=== PATIENT | male | born 1945 | race Caucasian/White ===

== ENCOUNTER → 2016-06-18 | Outpatient (CLI) | payer OTHER, MEDICAID | LOC: FIMAGING 16:08 | DX: M51.36 Other intervertebral disc degeneration, lumbar region (principal); G89.4 Chronic pain syndrome; M96.1 Postlaminectomy syndrome, not elsewhere classified; F11.20 Opioid dependence, uncomplicated ==

== ENCOUNTER 2017-08-03 11:38 | Inpatient (IN) | payer OTHER, MEDICAID ==
--- NOTE | 2017-08-03 11:59 | EDPHY ---
H & P Stated Complaint: WEAKNESS/NOT EATING/DOESN'T USE HIS OXYGEN/CHRONIC PAIN Time Seen by Provider: 08/03/17 11:59 HPI/ROS: CHIEF COMPLAINT: Weakness, failure to thrive, rib pain HISTORY OF PRESENT ILLNESS: The patient presents to the ED with complaints of progressive weakness, loss of appetite, failure to thrive and rib pain. The patient does have a history of COPD and uses oxygen occasionally. His only medication is oxycodone which he takes for chronic pain. The patient reports acute rib pain which developed acutely after a horseback ride several weeks ago. The patient is quite deconditioned at baseline. He reportedly was riding a horse secondary to participate in a [employer] service for friend. The patient reports significant 20-30 lb weight loss over the past several months. REVIEW OF SYSTEMS: A comprehensive 10 point review of systems is otherwise negative aside from elements mentioned in the history of present illness. Source: Patient - Personal History Current Tetanus Diphtheria and Acellular Pertussis (TDAP): Unsure - Medical/Surgical History Hx Asthma: No Hx Chronic Respiratory Disease: No Hx Diabetes: No Hx Cardiac Disease: No Hx Renal Disease: No Hx Cirrhosis: No Hx Alcoholism: No Hx HIV/AIDS: No Hx Splenectomy or Spleen Trauma: No Other PMH: CHRONIC PAIN - Social History Smoking Status: Current every day smoker - Physical Exam Exam: General Appearance: Thin, cachectic Eyes: Pupils equal and round no pallor or injection ENT, Mouth: Dry mucous membrane Respiratory: There are no retractions, lungs are clear to auscultation Cardiovascular: Tenderness to palpation anterior chest wall, no subcutaneous emphysema Gastrointestinal: Abdomen is soft and nontender, no masses, bowel sounds normal Neurological: 5 out of strength all 4 extremities Skin: Warm and dry, no rashes Musculoskeletal: Neck is supple nontender Extremities: symmetrical, full range of motion Constitutional: Initial Vital Signs Temperature (C) 36.4 C 08/03/17 11:43 Heart Rate 91 08/03/17 11:43 Respiratory Rate 18 08/03/17 11:43 Blood Pressure 69/57 L 08/03/17 11:43 O2 Sat (%) 91 L 08/03/17 11:43 O2 Delivery Mode Room Air Allergies/Adverse Reactions: No Known Allergies Allergy (Unverified 08/03/17 11:42) Home Medications: Medication Instructions Recorded Oxycodone HCl 08/03/17 Medical Decision Making - Diagnostics EKG Interpretation: EKG: Complete interpretation has been separately recorded in the [facility] archive. Summary impression: Sinus rhythm, rate 91, low voltage, LVH Imaging Results: Imaging Impressions Chest X-Ray 08/03/17 12:14 Impression: 1. New small right costophrenic angle blunting and right basilar consolidation discussed above. These could potentially be secondary to right rib fractures. 2. Possibly an abnormal right subphrenic abnormality. Results were discussed with Dr. Jaswinder Bragg at 1:15pm. Chest CT 08/03/17 13:16 Impression: 1. Small volume of acute versus subacute pulmonary embolic disease in the right lower lobe. 2. Suspect right paraspinal gas forming infection along T10 through T12 communicating with the right retroperitoneal space. No evidence of osteomyelitis or infected disk space. 3. Age indeterminate mild T5 and moderate T6 compression fractures are new since 2011. 4. No acute rib or sternal fracture. 5. Small bilateral pleural effusions. 6. Severe centrilobular emphysema, bullous formation and chronic airways disease. Findings discussed with Emergency Department physician, Aleksey Bragg on 08/03, 14:30. ED Course/Re-evaluation: The patient presents to the ED with multiple complaints primarily surrounding failure to thrive and rib pain. The patient is noted to be extremely cachectic and dehydrated. The patient was hypotensive upon arrival. The patient was brought immediately back to a room and placed on a whey department operator. He had an IV established. The patient received 2 L of normal saline for IV fluid rehydration. The patient's chest x-ray demonstrated some subtle abnormalities in the right subphrenic region. Given the patient's weight loss an abnormal chest x-ray CT scan of the chest abdomen and pelvis were obtained. Multiple abnormalities are noted including a nonspecific gas collection around the right kidney, a pulmonary embolism and a 15 mm common bile duct stone. The patient will require admission to the hospital for further evaluation and management of his multiple medical problems. Consultation is made with the hospitalist service for admission. Blood cultures and urine culture have been obtained. The patient was evaluated at 2:00 p.m. His blood pressure is currently 110/70 with a heart rate in the 70s. The patient will be admitted by Dr. Thomas. I have requested urologic consultation. I did curbside Dr. Powell who reviewed the patient's CT scan. He recommends general surgery consultation. Dr. Jiang from general surgery has been consulted. Differential Diagnosis: Differential diagnosis considered includes dehydration, renal failure, bacteremia, pyelonephritis, dehydration, metabolic abnormality, undiagnosed malignancy - Data Points Laboratory Results: Laboratory Results 08/03/17 12:04 08/03/17 12:04 08/03/17 08/03/17 08/03/17 12:04 12:04 12:04 WBC RBC Hgb Hct MCV MCH MCHC RDW Plt Count MPV Neut % (Auto) Lymph % (Auto) Rogers % (Auto) Eos % (Auto) Baso % (Auto) Nucleat RBC Rel Count Absolute Neuts (auto) Absolute Lymphs (auto) Absolute Monos (auto) Absolute Eos (auto) Absolute Basos (auto) Absolute Nucleated RBC Immature Gran % Seg Neutrophils % Band Neutrophils % Lymphocytes % Monocytes % Eosinophils % Basophils % Metamyelocytes % Myelocytes % Promyelocytes % Blast Cells % Immature Gran # Absolute Seg Neuts Absolute Band Neuts Absolute Lymphocytes Absolute Monocytes Absolute Eosinophils Absolute Basophils Absolute Metamyelocyte Absolute Myelocytes Absolute Promyelocytes Absolute Plasma Cells Absolute Blast Cells Plasma Cells % Toxic Granulation Platelet Estimate Microcytic Cells Echinocytes Smear Review By Sodium 127 mEq/L L mEq/L (135-145) Potassium 3.7 mEq/L mEq/L (3.3-5.0) Chloride 94 mEq/L L mEq/L (97-110) Carbon Dioxide 26 mEq/l mEq/l (22-31) Anion Gap 7 mEq/L L mEq/L (8-16) BUN 24 mg/dL H mg/dL (7-23) Creatinine 0.7 mg/dL mg/dL (0.7-1.3) Estimated GFR > 60 Glucose 103 mg/dL H mg/dL (70-100) Calcium 8.8 mg/dL mg/dL (8.5-10.4) Total Bilirubin 1.7 mg/dL H mg/dL (0.1-1.4) Conjugated Bilirubin 1.2 mg/dL H mg/dL (0.0-0.5) Unconjugated Bilirubin 0.5 mg/dL mg/dL (0.0-1.1) AST 28 IU/L IU/L (17-59) ALT 39 IU/L IU/L (21-72) Alkaline Phosphatase 224 IU/L H IU/L (38-126) Troponin I 0.223 ng/mL H ng/mL (0.000-0.034) NT-Pro-B Natriuret Pep 38306 pg/mL H pg/mL (0-125) Total Protein 5.7 g/dL L g/dL (6.3-8.2) Albumin 2.3 g/dL L g/dL (3.5-5.0) Lipase 39 IU/L IU/L (23-300) 08/03/17 12:04 WBC 11.24 10^3/uL H 10^3/uL (3.80-9.50) RBC 4.21 10^6/uL L 10^6/uL (4.40-6.38) Hgb 12.9 g/dL L g/dL (13.7-17.5) Hct 36.4 % L % (40.0-51.0) MCV 86.5 fL fL (81.5-99.8) MCH 30.6 pg pg (27.9-34.1) MCHC 35.4 g/dL g/dL (32.4-36.7) RDW 15.2 % % (11.5-15.2) Plt Count 98 10^3/uL L 10^3/uL (150-400) MPV 9.5 fL fL (8.7-11.7) Neut % (Auto) Not Reported Lymph % (Auto) Not Reported Rogers % (Auto) Not Reported Eos % (Auto) Not Reported Baso % (Auto) Not Reported Nucleat RBC Rel Count Not Reported Absolute Neuts (auto) Not Reported Absolute Lymphs (auto) Not Reported Absolute Monos (auto) Not Reported Absolute Eos (auto) Not Reported Absolute Basos (auto) Not Reported Absolute Nucleated RBC Not Reported Immature Gran % Not Reported Seg Neutrophils % 86.0 % % Band Neutrophils % 8.0 % % Lymphocytes % 5.0 % % Monocytes % 1.0 % % Eosinophils % 0 % % Basophils % 0 % % Metamyelocytes % 0 % % Myelocytes % 0 % % Promyelocytes % 0 % % Blast Cells % 0 % % Immature Gran # Not Reported Absolute Seg Neuts 9.67 10^/uL H 10^/uL (1.70-6.50) Absolute Band Neuts 0.90 10^3/uL H 10^3/uL (0.00-0.70) Absolute Lymphocytes 0.56 10^3/uL L 10^3/uL (1.00-3.00) Absolute Monocytes 0.11 10^3/uL L 10^3/uL (0.30-0.80) Absolute Eosinophils 0.00 10^3/uL L 10^3/uL (0.03-0.40) Absolute Basophils 0.00 10^3/uL L 10^3/uL (0.02-0.10) Absolute Metamyelocyte 0.00 10^3/mL 10^3/mL (0.00-0.00) Absolute Myelocytes 0.00 10^3/mL 10^3/mL (0.00-0.00) Absolute Promyelocytes 0.00 10^3/uL 10^3/uL (0.00-0.00) Absolute Plasma Cells 0.00 10^3/uL 10^3/uL (0.00-0.00) Absolute Blast Cells 0.00 10^3/uL 10^3/uL (0.00-0.00) Plasma Cells % 0 % % Toxic Granulation PRESENT H Platelet Estimate DECREASED L (ADEQ) Microcytic Cells 1+ H Echinocytes 2+ H Smear Review By Pending Sodium Potassium Chloride Carbon Dioxide Anion Gap BUN Creatinine Estimated GFR Glucose Calcium Total Bilirubin Conjugated Bilirubin Unconjugated Bilirubin AST ALT Alkaline Phosphatase Troponin I NT-Pro-B Natriuret Pep Total Protein Albumin Lipase Medications Given: Discontinued Medications Sodium Chloride (Ns) 500 mls @ 1,000 mls/hr IV EDNOW ONE PRN Reason: Protocol Stop: 08/03/17 12:41 Last Admin: 08/03/17 12:34 Dose: 500 mls Sodium Chloride (Ns) 1,000 mls @ 0 mls/hr IV EDNOW ONE; Wide Open PRN Reason: Protocol Stop: 08/03/17 12:14 Last Admin: 08/03/17 13:47 Dose: 1,000 mls Departure - Departure Disposition: [facility] Acute Clinical Impression: COPD (chronic obstructive pulmonary disease), Dehydration, Failure to thrive in adult Condition: Good
[2017-08-03] MEDS ORDERED: NS 500 ML IV ONE (12:12)
[2017-08-03] MEDS ORDERED: NS 1,000 ML IV ONE (12:13)
[2017-08-03 12:16] LABS: PLATELET COUNT 98 10^3/uL (150-400)
--- NOTE | 2017-08-03 12:21 | CPEKG ---
Heart Rate: 91 RR Interval: 659 P-R Interval: 192 QRSD Interval: 82 QT Interval: 400 QTC Interval: 493 P [place]: 60 QRS [place]: -86 T Wave [place]: 225 EKG Severity - ABNORMAL ECG - EKG Impression: SINUS RHYTHM EKG Impression: LEFT ANTERIOR FASCICULAR BLOCK EKG Impression: LOW VOLTAGE IN FRONTAL LEADS Electronically Signed By: Aleksey Bragg 03-Aug-2017 13:53:08
[2017-08-03] MEDS ORDERED: IOPAMIDOL (ISOVUE-300) 100 ML BTL ONE (13:22)
[2017-08-03] MEDS ORDERED: ONDANSETRON DISINTEGRATING 4 MG TAB PO PRN (14:32)
[2017-08-03] MEDS ORDERED: ACETAMINOPHEN 325 MG TAB PO PRN (14:32)
[2017-08-03] MEDS ORDERED: ONDANSETRON 4 MG/2 ML VIAL IVP PRN (14:32)
[2017-08-03] MEDS ORDERED: PIPERACILLIN/TAZO 4.5 GM/DEX 100 ML IV ONE (15:20)
[2017-08-03] MEDS ORDERED: FLUTICASONE NASAL 120 SPRAYS/16 GM MDI EACHNARE PRN (15:38)
[2017-08-03] MEDS ORDERED: FLUOCINONIDE 0.05% 15 GM CREAM TP PRN (15:38)
--- NOTE | 2017-08-03 16:42 | GHP ---
[f rep st] HISTORY AND PHYSICAL DATE OF ADMISSION: 08/03/2017 CHIEF COMPLAINT: Weight loss, rib fractures. HPI: History obtained from both patient and a friend. Patient is a 71-year- old male with history of COPD, chronic cervical and lumbar back pain presenting with failure to thrive. He has lost 20-30 pounds within the last 6 months. His friend took him to a doctor in [place] who told them to come to the emergency room. He has complained of right-sided rib pain for the past 2 weeks , after riding a riding horse in a parade. He did not fall from the horse. That evening when he got home, he had pain in both sides of his ribs. He has become very weak, especially over the last few days. He tripped when trying to go the restroom the other day. He did not have any loss of consciousness. No palpitations, presyncope, dizziness, or lightheadedness. He has not been eating the last few days. He denies fevers, chills, or sweats. No nausea, vomiting, or diarrhea. Has a chronic cough with clear sputum. No headaches. No abdominal pain. REVIEW OF SYSTEMS: I completed a 10-point review of systems, negative except as noted in HPI. PAST MEDICAL HISTORY: Cervical stenosis with bilateral arm numbness; COPD; chronic hypoxemic respiratory failure, occasionally uses oxygen; chronic lumbar stenosis and back pain due to falling down some stairs in 1993, he has been run over by a horse; hypertension; hypothyroidism. PAST SURGICAL HISTORY: Right hernia repair, laminectomy/diskectomy. FAMILY HISTORY: Father with liver cancer. Mother with stroke. SOCIAL HISTORY: Lives outside of [place]. 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 He has a daughter who lives in [place] named Linda. Has smoked on and off for the past 55 years, usually a pack a day. No alcohol or illicits. HOME MEDICATIONS: Acyclovir 4 mg 3 times daily p.r.n., Fosamax 70 mg weekly, vitamin D, finasteride 5 mg daily, Lidex cream, Flonase spray, hydroxyzine, levothyroxine 50 mcg daily, lisinopril/HCT 20/12.5 mg daily, naproxen twice daily, oxycodone 30 mg p.o. 5 times a day, tamsulosin 0.4 mg at bedtime, trazodone 100-200 mg at bedtime. ALLERGIES: No known drug allergies. PHYSICAL EXAMINATION: VITAL SIGNS: Temperature 36.4, blood pressure initially was 69/57 with a heart rate in the 90s, after fluids 118/94, heart rate 76, respirations 18, 91% on room air. GENERAL: Significantly cachectic, pale, tired-appearing. HEENT: PERRLA. Dry mucous membranes. CV: Regular rate and rhythm. No murmurs, gallops, or rubs. LUNGS: Diminished at the bases. ABDOMEN: Soft. No right upper quadrant pain with deep palpation. Positive bowel sounds. : No Dixon. MUSCULOSKELETAL: Tenderness over right upper ribs. Bones protruding significantly. SKIN: Warm and dry. NEURO: 2-12 intact. PSYCH: Alert and oriented x3. Flat affect. LABS: Sodium 127, potassium 3.7, chloride 94, anion gap 7, BUN 24, creatinine 0.7, glucose 103, calcium 8.8. Total bilirubin 1.7, conjugated 1.2, AST 28, ALT 39, alkaline phosphatase 229, total protein 5.7, albumin 2.3, lipase 39. Troponin and BNP pending. WBC 11, hemoglobin 12, hematocrit 36, platelets 98. Chest x-ray personally reviewed by me. Blunting of the right costophrenic angle. There has been an avulsion fracture deformity to the right anterior 6 through 9th ribs of unknown acuity. CT chest. Small volume of acute versus subacute pulmonary embolic disease in the right lower lobe. Suspect right paraspinal gas-forming infection along T10 through T12, communicating with the right retroperitoneal space. No evidence of osteomyelitis or infected disk space. Age-indeterminate T5 through T6 compression fractures, new since 2011. Severe central lobular emphysema bullous formation. EKG personally reviewed by me. T-wave inversions in V2 through V6. ASSESSMENT AND PLAN: 1. Hypotension. Suspect multifactorial with decreased p.o. intake and possible infection in retroperitoneal space. Blood pressures normalized with IV fluids. Normal lactate. 2. Concern for right perinephric abscess/abdominal perforation: gas tracking around right kidney/right retroperitoneal space. evaluated and plans for UGI series and then likely surgery. IV Zosyn. ID to see in the morning. 3. Right-sided chest pain: rib fractures 6-9th and PE. No resp distress. Troponin elevated, but suspect demand with acute illness. Repeat, telemetry. Check TTE tomorrow to eval for WMA. 4. Hypovolemic hyponatremia: decreased PO intake. Continue IVFs. 5. Mild leukocytosis. Again, concern for possible retroperitoneal space infection versus perforation. Has 15mm stone and CBD dilation. No RUQ pain. Afebrile. Cont Zosyn 6. Thrombocytopenia. Denies alcohol. No active bleed, monitor. 7. Hyperbilirubinemia. No reproducible right upper quadrant pain. Dr. Jiang to evaluate. 8. Protein caloric malnutrition: Severely cachectic, has lost weight over the last few months. Dietitian consult. 9. Lower extremity edema: new over the last year or so. May be due to hypoalbuminemia. Urine is pending for protein. TTE. 10. Acute/subacute pulmonary embolism: denies any shortness of breath. He is not tachycardic and stable on room air. Reviewed with Dr. Jones and says component in acute. Heparin gtt. 11. Severe weight loss: Concern malignancy. Significant tobacco history. Right kidney mass? He reports having a colonoscopy many years ago that was normal. 12. Hypothyroidism. levothyroxine when taking p.o. 13. Chronic pain: orals after surgery. Provide IV while n.p.o. 14. Indeterminate troponin: denies CP. Elevated troponin, TWIs (no old to compare). Could be related to PE, infection. Repeat troponin, telemetry, TTE 15. Diet: N.p.o. 16. DVT prophylaxis with SCDs. Patient warrants inpatient admission given concern for possible retroperitoneal infection versus perforation. Requires surgical evaluation and IV antibiotics. /[id number]/MODL MTDD
[2017-08-03] MEDS: HYDROmorphONE/DILAUDID 1 MG/ML INJ IVP PRN (16:52)
[2017-08-03] MEDS: NS 1,000 ML IV SCH (16:52)
[2017-08-03] MEDS ORDERED: HEPARIN 10,000 UNIT/10 ML MDV (1,000 UNIT/ML) IVP PRN (21:03)
[2017-08-03] MEDS ORDERED: HEPARIN/DEXTROSE 500 ML IV SCH (21:15)
[2017-08-03] MEDS: PIPERACILLIN/TAZO 3.375 GM/DEX 50 ML IV SCH (22:50)
[2017-08-03 23:01] LABS: PLATELET COUNT 102 10^3/uL (150-400)
[2017-08-03 23:25] LABS: INR 1.09 (0.83-1.16); PROTIME(PATIENT) 14.3 SEC (12.0-15.0)
[2017-08-04] MEDS: PIPERACILLIN/TAZO 3.375 GM/DEX 50 ML IV SCH ×4 (04:48→22:40)
[2017-08-04] MEDS: HYDROmorphONE/DILAUDID 1 MG/ML INJ IVP PRN ×2 (06:31→12:53)
--- NOTE | 2017-08-04 08:46 | ECHO ---
[email or web address] [address] Main: [phone] Fax: Transthoracic Echocardiogram Name: ANNA COLLIER MR#: [id number] Study Date: 08/04/2017 Study Time: 07:29 AM Date of : 1945 Age: 71 year(s) Height: 180.3 cm (71 in.) Weight: 48.99 kg (108 lb.) BSA: 1.62 m2 Gender: Male Examination: Echo Indication: EVAL FOR WMA, CHF, ELEVATED TROP, NEW PE, TWIS Image Quality: Adequate Contrast: Requested by: Linda Thomas BP: 114 mmHg/74 mmHg Heart Rate: Rhythm: Indication: EVAL FOR WMA, CHF, ELEVATED TROP, NEW PE, TWIS Procedure Staff Order Manager: Linda Lopez [facility] Reading Physician: Nivia Cole MD Requesting Provider: Conclusions: Normal size left ventricle. Mild to moderate LVH. Mildly reduced systolic LV function. EF is 42 %. Grade 1 diastolic dysfunction (abnormal relaxation). Apical hypokinesis. Normal size right ventricle. Normal RV function. Mild mitral valve regurgitation is present. Mild aortic valve regurgitation is present. Right ventricular systolic pressure measures 46mmHg. Moderate tricuspid regurgitation is present. Cannot rule out IVC thrombus. Patient has new PE. Small pericardial effusion. No echocardiographic evidence of hemodynamic compromise. There is no previous echocardiogram for comparison. Measurements: Chambers Valvular Assessment AV/MV Valvular Assessment TV/PV Normal Normal Normal Name Value Range Name Value Range Name Value Range Ao Salena (2D): 3.6 cm (1.4 cm-2.6 AV Vmax: 1.00 m/s (1 m/s-1.7 TR Vmax: 3.19 mm/s ( - ) cm) m/s) TR PGmax: 41 mmHg ( - ) IVSd (2D): 1.3 cm (0.6 cm-1.1 AV meanP mmHg ( - ) syst. PAP: 46 mmHg ( - ) cm) GUERO (VTI): 3.5 cm ( - ) PV Vmax: 0.88 m/s (0.6 m/s-0.9 LVDd (2D): 3.9 cm (4.2 cm-5.9 MV E Vmax: 0.46 m/s ( - ) m/s) cm) MV A Vmax: 0.80 m/s ( - ) PV PGmax: 3 mmHg ( - ) LVDs (2D): 2.6 cm (2.1 cm-4 MV E/A: 0.57 ( - ) cm) MV PHT: 0.072 s ( - ) Patient: ANNA COLLIER Study Date: 08/04/2017 Page 1 of 3 07:29 AM LVPWd (2D): 1.3 cm (0.6 cm-1 MVA (PHT): 3.1 s ( - ) cm) LVOTd 2.2 cm 2.2 cm mm LVEF (BP): 42 % (>=55 %) RVDd(2D): 3.4 cm (1.9 cm-3.8 cmmm) Continued Measurements: Chambers Valvular Assessment AV/MV Valvular Assessment TV/PV Name Value Name Value Name Value LADs: 2.8 cm MV DecTime: 208 m/s CVP (est.): 5 mmHg RA Area: 23.9 cm2 MV E' Septal: 0.04 m/s MV E/E' Septal: 11.30 MV E/E' Lateral: 11.90 Additional Vessels Name Value Ao Ascendin.2 cm Inferior Vena Cava: 1.3 cm Findings: Left Ventricle: Normal size left ventricle. Mild to moderate LVH. Mildly reduced systolic LV function. EF is 42 %. Regional wall motion abnormality noted. Grade 1 diastolic dysfunction (abnormal relaxation). Apical hypokinesis. Right Ventricle: Normal size right ventricle. Normal RV function. Left Atrium: The left atrium is normal in size. Right Atrium: The right atrium is normal in size. Mitral Valve: The mitral valve is normal in appearance and function. Mild mitral valve leaflet calcification is present. Mild mitral valve regurgitation is present. No mitral stenosis is present. Aortic Valve: The aortic valve is normal in appearance and function. Mild aortic valve regurgitation is present. No aortic valve stenosis is present. Tricuspid Valve: The tricuspid valve is normal in appearance and function. Right ventricular systolic pressure measures 46mmHg. Moderate tricuspid regurgitation is present. Pulmonic Valve: The pulmonic valve is normal in appearance and function. Trivial pulmonic valve regurgitation. Aorta: The aorta is normal. Normal size aortic root measuring 3.6 cm. Normal size ascending aorta measuring 3.2 cm. IVC: The IVC is normal sized. Cannot rule out IVC thrombus. Patient has new PE. Pericardium: Small pericardial effusion. No echocardiographic evidence of hemodynamic compromise. No pleural effusion. Exam Comments: Patient very thin. (No Signature Object) Patient: ANNA COLLIER Study Date: 08/04/2017 Page 2 of 3 07:29 AM Patient: ANNA COLLIER Study Date: 08/04/2017 Page 3 of 3 07:29 AM [id number]
[2017-08-04] MEDS ORDERED: POTASSIUM CL 20 MEQ TAB PO ONE (09:04)
[2017-08-04] MEDS ORDERED: PROTOCOL POTASSIUM 1 DOSE MISC PRN (09:04)
[2017-08-04] MEDS ORDERED: POTASSIUM CL 10 MEQ TAB PO ONE (09:57)
[2017-08-04] MEDS: NS 1,000 ML IV SCH (09:59)
--- NOTE | 2017-08-04 12:01 | PDMN ---
Medical Necessity Medical necessity: est los>2mn for possible retroperitoneal infection vs perforation, R chest pain w/rib fx's and PE, hypovolemic hyponatremia, and severe wt loss; admit for surgical eval, further w/u and IV abx; comorbid COPD, chronic resp failure, lumbar and cervical stenosis, and htn; per order and H&P
[2017-08-04] MEDS: POTASSIUM Cl (KCl) 100 ML IV SCH ×5 (12:19→21:23)
--- NOTE | 2017-08-04 12:29 | ASMTCASEMG ---
Living Arrangements What is your living Answers: Alone arrangement? Who do you live with? Type Of Residence What kind of residence do Answers: House you live in? Discharge Plan Comments Coordination Status Comments Notes: Pt is a 71 y/o man admitted for weight loss and rib fractures. Pt lost 20-30lbs within the last 6 months. Pt has a hx of COPD, chronic cervical and lumbar back pain and presenting w/ failure to thrive. Therapies have been ordered and awaiting recommendations. ID has been consulted. Needs are TBD at this time. CM to follow. Plan: TBD Date Signed: 08/04/2017 12:29 PM Electronically Signed By:MARIELOS Haddad
--- NOTE | 2017-08-04 15:27 | HOSPPROG ---
Hospitalist Progress Note Assessment/Plan: # Hypotension - SBP 60's at presentation - suspect multifactorial from hypovolemia and acute infection responded well to IVF resuscitation overnight - SBP 100's - cont IVF while NPO # Acute suspected perinephric abscess and possible perforation - CT abd ( personally reviewed and interpreted) paraspinal free air perinephric stranding - continue empiric Zosyn - Dr. Jiang ordered small bowl follow through - anticipate OR today at 4pm # Severe protein malnutrition - BMI 14 - pt reports 2/2 neglecting food - will need ongoing work up for malignancy or reversible cause beyond acute illnesses - dietary consult when can take PO # Acute PE - on heparin gtt overnight- oxygen saturations 100% on 2L # Acute vs Chronic systolic HF - ECHO (reviewed) reduced systolic function with elevated BNP and peripheral edema - consider gentle diuresis after pressures remain stable and post-op not needing IVF # hypothyroidism - cont synthroid # Indeterminate troponin - with reduced apical wall motion on ECHO - cardiology consulting - continue stabilization and supportive care prior to risk stratification # Hypovolemic Hyponatremia - sodium 127->133 - continue IVF # proph - heparin gtt # diet- NPO for OR # dispo- > 2MN as pt remains acutely very ill requiring stabilization and diagnostic work up I have discussed the case with Cardiology - they will consult and follow along. Subjective: exhausted Objective: Vital Signs Temp Pulse Resp BP Pulse Ox 36.4 C 74 14 109/78 95 08/04/17 12:00 08/04/17 12:00 08/04/17 12:00 08/04/17 12:00 08/04/17 12:00 Laboratory Results 08/03/17 22:55 08/04/17 05:06 08/03/17 08/04/17 08/05/17 05:59 05:59 05:59 Intake Total 2178.8 178 Output Total 175 400 Balance 2003.8 -222 PT 14.3 SEC (12.0-15.0) 08/03/17 22:55 INR 1.09 (0.83-1.16) 08/03/17 22:55 - Physical Exam Constitutional: chronically ill appearing, cachectic Eyes: anicteric sclera Ears, Nose, Mouth, Throat: dry mucous membranes Cardiovascular: regular rate and rhythym, systolic murmur, edema Respiratory: no respiratory distress, No expiratory wheeze Gastrointestinal: normoactive bowel sounds, tenderness, No guarding, No rebound Genitourinary: no bladder fullness Skin: warm Musculoskeletal: No asymmetric calves Neurologic: AAOx3 Psychiatric: depressed Lymph, Heme, Immunologic: no cervical LAD ICD10 Worksheet Patient Problems: Problems Problem Status Onset COPD (chronic obstructive pulmonary disease) Acute Dehydration Acute Failure to thrive in adult Acute
[2017-08-04] MEDS ORDERED: LR 1,000 ML IV ONE (15:49)
--- NOTE | 2017-08-04 16:02 | GCON ---
[f rep st] CONSULTATION DATE OF CONSULTATION: 08/04/2017 REASON FOR CONSULTATION: Hospitalist asked for cardiology consult related to elevated troponins, EKG with T-wave inversion, echo showing diminished ejection fraction and wall motion abnormality. HISTORY OF PRESENT ILLNESS: The patient came in to the emergency room on 2017, with complaint of weakness, no appetite, chronic back pain. On admission , he was found to be dehydrated, very thin and cachectic appearance of failure to thrive. Today while visiting with him, he is very calm; however, reports he is in significant back pain. He has noticed progressive weakness over the last few months. He does have COPD and has oxygen at home, however, does not use it compliantly. He is using oxygen at time of visit at 2 L. He has been in chronic back pain for years; however, several weeks ago, he was horseback riding , which caused him extreme acute pain, which has not subsided since that time. He has had a 20-30 pounds weight loss over the past year. He had become so weak that he decided to go to the emergency room for further evaluation. While evaluated in the emergency room, he had a chest x-ray, a CT of the chest, EKG, and echocardiogram done. CT of the chest identified a small volume acute on chronic pulmonary emboli in the right lower lobe, paraspinal gas-forming along the T10-T12, which communicated with the right retroperitoneal space. He had mild T5 to moderate T6 compression fracture, age indeterminate, and severe central lobular emphysema identified. 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 No evidence of hemodynamically compromise. Mild to moderate left ventricular hypertrophy. Regional wall motion abnormality with grade 1 diastolic dysfunction. He denies having abdominal pain; however, he admits to tenderness of the lower abdomen. At time of visit, he is in pain, however, is very calm. He is very frail and thin with notable weakness. While in the emergency room, he was seen by Dr. Jiang with suspicion of possible intraabdominal perforation. He was started on Zosyn with probable upcoming surgery to further evaluate. REVIEW OF SYSTEMS: A 10-point review of system was otherwise negative with the exception of the mentioned elements of the H and P. PAST MEDICAL HISTORY: 1. COPD with occasional use of oxygen at home. 2. Cervical stenosis. 3. Chronic back pain since 1993, after falling downstairs. 4. Hypertension. 5. Hypothyroidism. PAST SURGICAL HISTORY: 1. Hernia repair, right-sided. 2. Laminectomy with diskectomy. FAMILY HISTORY: No coronary artery disease. Father of liver cancer. Mother CVA. 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 He lives in [place]. He has 1 daughter. He has smoked for the past 50 years. No alcohol use. No illicit drug use. HOME MEDICATIONS: Acyclovir 4 mg 3 times a day as needed, Fosamax 70 mg weekly , vitamin D, finasteride 5 mg daily, Flonase spray p.r.n., levothyroxine 50 mcg daily, lisinopril/HCT 20/12.5 mg daily, naproxen twice daily, oxycodone 30 mg orally 5 times a day, tamsulosin 0.4 mg at bedtime, trazodone 100-200 mg at bedtime. Of note, he has not been taking his medications compliantly. ALLERGIES: He has no known drug allergies. PHYSICAL EXAMINATION: VITAL SIGNS: Blood pressure today 104/63, heart rate 69 , respirations 22, oxygen saturation 98% on 2 L of oxygen. GENERAL: He appears cachectic, weak, and very pale. HEENT: Pupils are equal bilaterally. Oral mucosa membranes are dry. CARDIOVASCULAR: Heart rate is regular. He has a 2/6 cardiac murmur. No gallops or rubs. LUNGS: Sounds are diminished with no wheezes, rales, or rhonchi. ABDOMEN: Soft with lower abdominal tenderness, with good bowel sounds in all quadrants MUSCULOSKELETAL: Tenderness over right rib cage. Skeletal bones prominent. SKIN: Warm and dry. PSYCH: He is alert and oriented x3. EXTREMITIES: Bilateral lower leg and feet 2+ pitting edema. INVESTIGATION: 1. Chest x-ray done 08/03/2017 showed: a. New small right costophrenic angle blunting and right basilar consolidation, possibly secondary to rib fractures. b. Possible abnormal right supraphrenic abnormality. 2. EKG: a. Left anterior fascicular block with T-wave inversion in V2 through V6. Rhythm: Sinus rhythm. 3. Abdominal CT scan. Impression: a. Gas and fluid-filled collection around right kidney tracking to the right paraspinal distribution. May represent abscess with gas- forming organisms or unusual leak from gastrointestinal tract into the retroperitoneal space. b. Large 15 mm common bile duct stone resulting in moderate intrahepatic biliary dilatation. c. Distended gallbladder containing sludge and gallstone. d. Constipation. No acute bowel process noted. 4. CT of chest with contrast 08/03/2017. Impression: a. Small volume acute on chronic pulmonary embolic disease in right lower lobe. b. Suspect paraspinal gas-forming infection along T10 through T12 communicating with the right retroperitoneal space. No evidence of osteomyelitis or infection of the disk space. c. Age indeterminate mild T5 and moderate T6 compression fractures new since 2011. d. No acute rib or sternal fractures. e. Small bilateral pleural effusions. f. Severe emphysema, and chronic airway disease. 5. Upper GI and small bowel x-ray 08/03/2017. Impression: a. No evidence of retroperitoneal perforation from stomach or addendum, possible gastritis. Limited single contrast gastrografin study, continued visualization of perinephric air around right kidney. 6. Echocardiogram 08/03/2017: a. Normal size left ventricle. b. Mild to moderate LVH. c. Mildly reduced systolic LV function with EF 42%. d. Grade 1 diastolic dysfunction, abnormal relaxation. e. Apical hypokinesis. f. Normal size right ventricle. g. Normal RV function. h. Mild mitral valve regurgitation. i. Mild aortic valve regurgitation. j. Right ventricular systolic pressure measuring 46 mmHg. k. Moderate tricuspid regurgitation. l. Cannot rule out IVC thrombus. Patient has new PE. m. Small pericardial effusion. n. No echocardiographic evidence of hemodynamics compromise. 7. Abnormal lab: Troponin 0.223, 2nd troponin 0.174, BNP 14,400, Creatinine 0.6, potassium 2.8. ASSESSMENT AND PLAN: 1. Abnormal EKG. EKG does show T-wave inversion in V2 through V6, which may be an indication of cardiac ischemia. He does remain in a regular sinus rhythm. Further cardiac evaluation will be needed during the hospitalization. 2. Elevated troponin. First troponin was 0.223, 2nd troponin 0.174. This may be an oxygen demand mismatch due to other tissue demands at this time. Further troponin levels will be obtained during this hospitalization to follow closely. 3. BNP elevated at 14,400. This is likely multifactorial. He does have lower extremity and feet 2+ pitting edema, which will be addressed with diuresis. 4. Ejection fraction decline with ejection fraction 42% by echocardiogram. We will continue to follow along closely. Likely getting a second echocardiogram after the planned noncardiac surgery. 5. Pulmonary emboli. Anticoagulation is on hold for upcoming surgery. This will need to be resumed post surgery. 6. Hypotension. This is likely due to his ongoing infection. His cardiac medications have been on hold. We will monitor this closely. 7. He is a high cardiac surgical risk. However, he also is at high risk due to the multifactorial retroperitoneal possible infection with abscess and abdominal perforation. He will need to proceed with surgery as planned and we will follow along closely post surgery and address his cardiac needs and medications at that time. /[id number]/MODL and [id number]/MODL PEDRO
[2017-08-04] MEDS ORDERED: BUPIVACAINE 0.5% 30 ML SDV ONE (16:15)
--- NOTE | 2017-08-04 16:17 | PDANEPAE ---
ANE History of Present Illness abdominal pain with intraperitoneal fluid collection ANE Past Medical History - Cardiovascular History Hx Hypertension: Yes Hx Arrhythmias: No Hx Chest Pain: No Hx Coronary Artery / Peripheral Vascular Disease: No Hx CHF / Valvular Disease: No Hx Palpitations: No - Pulmonary History Hx COPD: Yes Hx Asthma/Reactive Airway Disease: No Hx Recent Upper Respiratory Infection: No Hx Oxygen in Use at Home: Yes O2 in Use at Home (L/minute): 2 Hx Sleep Apnea: No Sleep Apnea Screening Result - Last Documented: Positive - Endocrine History Hx Diabetes: No Hypothyroid: No Hyperthyroid: No Obesity: no - Chronic Pain History Chronic Pain: Yes ANE Review of Systems Review of systems is: negative Review of Systems: - Exercise capacity Exercise capacity: <4 METS ANE Patient History - Allergies Allergies/Adverse Reactions: No Known Allergies Allergy (Unverified 08/03/17 11:42) - Home Medications Home medications: home medication list seen and reviewed Home Medications: Acyclovir [Zovirax 400 mg (*)] 400 mg PO TID PRN 08/03/17 [Last Taken Unknown] Alendronate Sodium [Fosamax 70 MG (*)] 70 mg PO Q7D 08/03/17 [Last Taken Unknown ] Cholecalciferol Vit D3 [Vitamin D3 2000 units tab (OTC)] 2,000 units PO DAILY [Last Taken Unknown] Finasteride [Proscar 5 MG (*)] 5 mg PO DAILY 08/03/17 [Last Taken Unknown] Fluocinonide 0.05% [Lidex 0.05% Cream (RX)] 1 romeo TP BID PRN 08/03/17 [Last Taken Unknown] Fluticasone Nasal [Flonase Nasal [place] (RX)] 2 sprays NASAL DAILY PRN 08/03/17 [ Last Taken Unknown] Levothyroxine [Synthroid 50 mcg (*)] 50 mcg PO DAILY06 08/03/17 [Last Taken 1 Week Ago ~07/27/17] Lisinopril/Hctz 20/12.5MG [Zestoretic/Prinzide 20/12.5MG (*)] 1 ea PO DAILY PRN 08/03/17 [Last Taken Unknown] Naproxen 500 mg PO BID PRN 08/03/17 [Last Taken Unknown] Tamsulosin HCl [Flomax 0.4 MG (*)] 0.4 mg PO HS 08/03/17 [Last Taken 08/02/17] hydrOXYzine HCL [Vistaril] 50 mg PO Q6HRS PRN 08/03/17 [Last Taken Unknown] oxyCODONE IR [Oxycodone Ir (*)] 30 mg PO 5XD 08/03/17 [Last Taken 08/03/17] traZODone [traZODONE 100MG (*)] 100 - 200 mg PO HS PRN 08/03/17 [Last Taken ] - NPO status NPO Since - Liquids (Date): 08/04/17 NPO Since - Liquids (Time): 00:00 NPO Since - Solids (Date): 08/04/17 NPO Since - Solids (Time): 00:00 - Anes Hx Anes Hx: no prior problems - Smoking Hx Smoking Status: Current every day smoker - Alcohol Use Alcohol Use: None ANE Labs/Vital Signs - Labs Result Diagrams: 08/03/17 22:55 08/04/17 05:06 - Vital Signs Blood Pressure: 112/75 Heart Rate: 71 Respiratory Rate: 14 O2 Sat (%): 95 Height: 180.34 cm Weight: 45.495 kg ANE Physical Exam - Airway Neck exam: FROM Mallampati Score: Class 1 Mouth exam: dentures - Pulmonary Pulmonary: no respiratory distress - Cardiovascular Cardiovascular: regular rate and rhythym - ASA Status ASA Status: IV ANE Anesthesia Plan Anesthesia Plan: general endotracheal anesthesia Lines/Monitors: arterial line
[2017-08-04] MEDS ORDERED: KETAMINE 200 MG/20 ML VIAL ONE (16:39)
--- NOTE | 2017-08-04 16:43 | GCON ---
[f rep st] CONSULTATION INPATIENT INFECTIOUS DISEASE CONSULTATION REFERRING PHYSICIAN: Linda Thomas MD REASON FOR REFERRAL: Possible infection in the retroperitoneal space. HISTORY OF PRESENT ILLNESS: Patient is a 71-year-old male who presented to [facility] on 08/03/2017. The patient had complained of worsening of lumbar back pain and the loss of 20-30 krystina nds within the last 6 months without trying. Patient went to his primary care physician in [place] , who directed them to the hospital. The patient states that he was riding a horse in a parade near [place] approximately 2-3 weeks ago, and after this horseback ride, he started having worsening erna n on the right side. He did not suffer any traumatic fall. The patient states that his weakness and loss of appetite have gotten less over the last couple of weeks. No clear fevers and only occasiona l chills or mild sweats. He denies any gastrointestinal symptoms. He has a chronic cough, but no ch anges recently. Denies abdominal pain. PAST MEDICAL HISTORY: 1. History of cervical stenosis. 2. COPD. 3. Hypertension. 4. Hypothyroidism. PAST SURGICAL HISTORY: 1. Status post right-sided hernia repair. 2. Status post laminectomy and diskectomy. ANTIBIOTICS: Zosyn. ALLERGIES: The patient has no known drug allergies. SOCIAL HISTORY: The patient lives outside of [place]. He has been on disability since 1993. He h as been a smoker for over 50 years. No alcohol or illicit drug use noted. FAMILY HISTORY: Reviewed but noncontributory. REVIEW OF SYSTEMS: Other than that detailed above in History of Present Illness, comprehensive 10-sy stem review is negative. PHYSICAL EXAMINATION: VITAL SIGNS: Temperature maximum is 36.8. Temperature current is 36.4. Hear t rate 74. Respiratory rate is 14. Blood pressure is 109/78. GENERAL: The patient is a well-forme d, cachectic older male in no acute distress. He is chronically ill in appearance. He is not acutel y toxic. He is alert and oriented x3. He is pleasant in demeanor. HEENT: Normocephalic for age. Atraumatic. No scleral icterus. No oral lesion or drainage from the nares. Eyes: Lids and conjunc tivae are within normal limits. Pupils are equal and round bilaterally. NECK: Supple. No meningis mus. LUNGS: Clear to auscultation bilaterally. Good effort. HEART: Regular rate and rhythm. No murmur, rub, or gallop noted. The patient does have 2+ peripheral edema midshin distal. ABDOMEN: S oft, nontender. No masses. SKIN: Warm and dry to the touch. No rash or lesion. MUSCULOSKELETAL: No muscle belly tenderness is noted. No joint line effusion or arthritis is seen. NEURO: Cranial nerves 2-12 seem to be intact. Peripheral sensation seems intact in extremities. LABORATORY DATA: Patient has a CBC dated 08/03/2017, shows a white blood cell count of 8.7, hemoglob in of 12.6, hematocrit of 36.7, and a platelet count of 102. Differential shows left shift with 89% segmented neutrophils. Serum chemistries on 08/04/2017 show sodium of 133, potassium of 2.8, chlorid e of 103, bicarbonate of 21, BUN of 18, and creatinine of 0.6. Total bilirubin is 1.3. AST is 29. ALT is 42. Alkaline phosphatase is elevated at 179. Total protein is 4.6. Albumin is 1.8. Urinaly sis is within normal limits. MICROBIOLOGIC DATA: Patient has blood cultures from 08/03/2017, which are no growth to date. The [facility] has an abdominal and chest CT from 08/03/2017. The chest CT shows small volume acute on chroni c pulmonary embolic disease in the right lower lobe. Also shows right-sided paraspinal gas formation along T10 through T12 communicating to the right retroperitoneal space. There is no evidence of dis kitis or osteomyelitis on this contrasted scan. There are old T5 and T6 compression fractures. No a cute rib or sternal fracture. Small bilateral pleural effusions. No masses. On the abdominal CT, t here is further characterization of a gas and fluid-filled collection around the right kidney trackin g to the right paraspinal space. There is a large, 15 mm common bile duct stone resulting in moderat e intrahepatic biliary dilatation. There is also a distended gallbladder. ASSESSMENT: Failure to thrive and mild leukocytosis without fever or other indications of infection apart from this retroperitoneal process on the right side. This is unusual to see this degree of gas in the soft tissues that would be attributable to infection without more outward signs of this. Oth er possibilities are that there is some pulmonary, gastrointestinal or bilious communication to the a dajuan. The presence of a large gallstone in the bile duct makes me wonder whether erosion of the bile duct could have caused a communication with retrograde movement of gas from the small bowel into the retroperitoneal space. This would result in significant pain with biliary leakage in the retroperito neum, but would not necessarily result in acute inflammatory or infectious presentation. I do agree with his empiric coverage with IV Zosyn. I do think the upcoming planned surgical investigation toda y is important in order to establish cause of this finding. I did discuss all this with his daughter in [place]. She is flying in later today. PLAN: 1. Continue empiric Zosyn. 2. Follow up on surgical findings. 3. Continue supportive care. /[id number]/MODL
[2017-08-04] MEDS ORDERED: fentaNYL 250 MCG/5 ML INJ ONE (16:58)
[2017-08-04] MEDS ORDERED: PROPOFOL 200 MG/20 ML VIAL ONE (16:58)
[2017-08-04] MEDS ORDERED: ROCURONIUM 100 MG/10 ML VIAL ONE (17:00)
[2017-08-04] MEDS ORDERED: LIDOCAINE 2% 5 ML SDV ONE (17:00)
[2017-08-04] MEDS ORDERED: DEXAMETHASONE 4 MG/ML VIAL ONE (17:03)
[2017-08-04] MEDS ORDERED: SUGAMMADEX SODIUM 200 MG/2 ML VIAL IVP ONE (17:04)
[2017-08-04] MEDS ORDERED: ONDANSETRON 4 MG/2 ML VIAL ONE (17:04)
[2017-08-04] MEDS ORDERED: PHENYLEPHRINE 10 MG/ML SDV ONE (17:57)
[2017-08-04] MEDS ORDERED: IOPAMIDOL (ISOVUE-M 300) 15 ML VIAL ONE (18:22)
[2017-08-04] MEDS ORDERED: HYDROmorphONE/DILAUDID 2 MG/ML INJ ONE (18:26)
[2017-08-04] MEDS ORDERED: ALBUMIN 5% 250 ML BOTTLE IV ONE (19:15)
[2017-08-04] MEDS ORDERED: IOTHALAMATE MEG (CONRAY) 50 ML VIAL IV ONE (19:17)
[2017-08-04] MEDS ORDERED: ALBUTEROL 3 ML DEYVIAL IH PRN (19:58)
[2017-08-04] MEDS ORDERED: oxyCODONE IR 5 MG TAB PO PRN (19:58)
[2017-08-04] MEDS ORDERED: HYDROmorphONE/DILAUDID 2 MG/ML INJ IVP PRN (19:58)
[2017-08-04] MEDS ORDERED: epHEDrine SULFATE 10 MG/ML SYR IVP PRN (19:58)
[2017-08-04] MEDS ORDERED: NALOXONE HCL 0.4 MG/ML INJ IVP PRN (19:58)
[2017-08-04] MEDS ORDERED: fentaNYL 100 MCG/2 ML INJ IVP PRN (19:58)
[2017-08-04] MEDS ORDERED: ONDANSETRON 4 MG/2 ML VIAL IVP PRN (19:58)
[2017-08-04] MEDS ORDERED: LR 500 ML IV PRN (19:58)
[2017-08-04] MEDS ORDERED: PHENYLEPHRINE HCL 100 MCG/ML SYR IVP PRN (19:58)
[2017-08-04] MEDS ORDERED: LABETALOL HCL 5 MG/ML 20 ML MDV IVP PRN (19:58)
[2017-08-04] MEDS ORDERED: ACETAMINOPHEN 500 MG TAB PO PRN (19:58)
[2017-08-04] MEDS ORDERED: HYDROCODONE/APAP 5/325 TAB PO PRN (19:58)
--- NOTE | 2017-08-04 20:00 | POSTANESTH ---
Post Anesthetic Evaluation Cardiovascular Status: Normal, Stable Respiratory Status: Normal, Stable Level of Consciousness/Mental Status: Can Participate in Eval, Mildly Sleepy, Arousable Pain Control: Adequate, Prn Tx Ordered Nausea/Vomiting Control: Adequate, Prn Tx Ordered Complications Possibly Related to Anesthesia: None Noted
--- NOTE | 2017-08-04 20:34 | POSTOPPROG ---
Post Op Note Date of Operation: 08/04/17 Surgeon: Junior Jiang Anesthesiologist: usman Anesthesia: GET(General Endotracheal) Pre-op Diagnosis: retroperitoneal abscess, cd stone Post-op Diagnosis: same Indication: pain, infection Procedure: laparotomy with drainage of retroperitoneal abscess, rajeev with grams and c Findings: large cd stone and cholelitiasis, large rt retroperitoneal abscess Inf/Abcess present in the surg proc area at time of surgery?: Yes Depth: Organ Space EBL: Minimal Complications: 0 Drains: Son Castro, Other (t-tube) Specimen(s): gallbladder, stones, cultures
[2017-08-05] MEDS: NS 1,000 ML IV SCH (00:43)
[2017-08-05] MEDS: HYDROmorphONE/DILAUDID 1 MG/ML INJ IVP PRN ×4 (00:43→16:38)
[2017-08-05] MEDS: PIPERACILLIN/TAZO 3.375 GM/DEX 50 ML IV SCH ×4 (05:01→21:55)
[2017-08-05 05:07] LABS: PLATELET COUNT 87 10^3/uL (150-400)
[2017-08-05 05:18] LABS: INR 1.33 (0.83-1.16); PROTIME(PATIENT) 16.7 SEC (12.0-15.0)
[2017-08-05] MEDS ORDERED: POTASSIUM Cl (KCl) 10 MEQ in NS 100 ML IV SCH (10:30)
[2017-08-05] MEDS ORDERED: POTASSIUM Cl (KCl) 100 ML IV SCH (10:30)
--- NOTE | 2017-08-05 10:43 | HOSPPROG ---
Hospitalist Progress Note Assessment/Plan: # Retroperitoneal abscess and possible perforation s/p ex lap with I&D of abscess removal of CBD stone - CT abd (personally reviewed and interpreted) paraspinal free air perinephric stranding - continue empiric Zosyn, ID following - cont NPO, NG tube for now - surgery following - pathology pending on gall bladder and retroperitoneal lymph node specimen # Hypotension - SBP 60's at presentation - suspect multifactorial from hypovolemia and acute infection, resolved - cont IVF while NPO, changed to D5 NS 20 KCl at 100/hr # Severe protein malnutrition - BMI 14 - pt reports 2/2 neglecting food - will need ongoing work up for malignancy or reversible cause beyond acute illnesses, as above, pathology pending - dietary consult when can take PO # Acute PE - resume heparin drip tomorrow am, per surgery # Acute vs Chronic systolic HF - ECHO (reviewed) reduced systolic function with elevated BNP and peripheral edema - consider gentle diuresis after pressures remain stable and post-op not needing IVF # hypothyroidism - cont synthroid # Indeterminate troponin - with reduced apical wall motion on ECHO - cardiology consulted, plan for inpt risk stratification once better recovered from surgery and acute infectious issues # Hypovolemic Hyponatremia - normalized with IVF's, continue # proph - heparin gtt to resume tomorrow am as above # dispo- cont inpt, ADD uncertain Subjective: Pt doing ok, pain controlled. Has NG tube. No fevers/chills. No N/ V. Objective: Vital Signs Temp Pulse Resp BP Pulse Ox 36.6 C 85 23 H 117/75 95 08/05/17 08:00 08/05/17 08:00 08/05/17 08:00 08/05/17 08:00 08/05/17 08:00 Microbiology 08/04/17 18:30 Gram Stain - Final Peritoneal Fluid - Eswab Laboratory Results 08/05/17 04:55 08/05/17 04:55 08/04/17 08/05/17 08/06/17 05:59 05:59 05:59 Intake Total 2178.8 2656 Output Total 175 965 100 Balance 2003.8 1691 -100 PT 16.7 SEC (12.0-15.0) H 08/05/17 04:55 INR 1.33 (0.83-1.16) H 08/05/17 04:55 - Physical Exam Constitutional: no apparent distress, cachectic Eyes: PERRL Ears, Nose, Mouth, Throat: moist mucous membranes Cardiovascular: regular rate and rhythym Respiratory: no respiratory distress, clear to auscultation Skin: warm Musculoskeletal: generalized weakness Neurologic: AAOx3 Psychiatric: interacting appropriately ICD10 Worksheet Patient Problems: Problems Problem Status Onset COPD (chronic obstructive pulmonary disease) Acute Dehydration Acute Failure to thrive in adult Acute
[2017-08-05] MEDS ORDERED: D5W NS W/ 20 KCl/L 1,000 ML IV SCH (11:00)
--- NOTE | 2017-08-05 11:03 | SOAPPROG ---
SOAP Progress Note Assessment/Plan: Assessment: 71 y/o M s/p laparotomy with drainage of retroperitoneal abscess, cholecystectomy with grams S: Doing well over all. Does report some pain. Denies passing flatus or BM yet. Feels cold, requesting blankets. O: Alert Afebrile No increased WOB Abdomen: appropriately tender to palpation, distended, but soft, dressings cdi, hypoactive bowel sounds NG tube in place to wall suction : Dixon in place with clear yellow urine. Plan: Await return of bowel function. Continue NPO and NG tube for now. Ok to restart heparin drip tomorrow, per Dr. Jiang. 08/05/17 10:58 Objective: Vital Signs Temp Pulse Resp BP Pulse Ox 36.6 C 85 23 H 117/75 95 08/05/17 08:00 08/05/17 08:00 08/05/17 08:00 08/05/17 08:00 08/05/17 08:00 Microbiology 08/04/17 18:30 Gram Stain - Final Peritoneal Fluid - Eswab Laboratory Results 08/05/17 04:55 08/05/17 04:55 08/04/17 08/05/17 08/06/17 05:59 05:59 05:59 Intake Total 2178.8 2656 Output Total 175 965 100 Balance 2003.8 1691 -100 PT 16.7 SEC (12.0-15.0) H 08/05/17 04:55 INR 1.33 (0.83-1.16) H 08/05/17 04:55 ICD10 Worksheet Patient Problems: Problems Problem Status Onset COPD (chronic obstructive pulmonary disease) Acute Dehydration Acute Failure to thrive in adult Acute
[2017-08-05] MEDS: D5W NS 1,000 ML IV SCH ×2 (12:42→22:21)
--- NOTE | 2017-08-05 12:43 | PCMIDPN ---
Assessment/Plan: Assessment: Right-sided retroperitoneal abscess probably from biliary source. Status post abscess drainage and gallbladder removal yesterday. Clinically seems to be doing fairly well today. Still complains of significant pain although vital signs are very stable in normal. Patient does have chronic pain issues and is managed with narcotics in significant doses as out patient. Gram-negative christopher in Gram stain from operative culture. Will wait to observe what grows. Meanwhile continue empiric Zosyn. Plan: 1. Continue empiric Zosyn. 2. Follow operative cultures. 3. Follow up with supportive care and clinical progress. New 08/05/17 12:41 Subjective: Patient is resting in his hospital bed. His 2 daughters are in the room. He has a nasogastric tube in but is awake alert and in some moderate to severe pain. No fevers or chills. Objective: Zosyn # 2 Vital Signs Temp Pulse Resp BP Pulse Ox 36.5 C 91 16 115/80 96 08/05/17 11:53 08/05/17 11:53 08/05/17 11:53 08/05/17 11:53 08/05/17 11:53 Microbiology 08/04/17 18:30 Gram Stain - Final Peritoneal Fluid - Eswab Laboratory Results 08/05/17 04:55 08/05/17 04:55 08/04/17 08/05/17 08/06/17 05:59 05:59 05:59 Intake Total 2178.8 2656 Output Total 175 965 245 Balance 2003.8 7399 -245 - Physical Exam General Appearance: WD/WN, alert, no apparent distress, cachetic, non-toxic Cardiac/Chest: regular rate, rhythm, No bradycardia, No tachycardia, No irregularly irregular Extremities: non-tender, normal inspection Abdomen: soft, No non-tender Skin: normal color, warm/dry, No rash Neuro/Psych: alert, normal mood/affect, oriented x 3 ICD10 Worksheet Patient Problems: Problems Problem Status Onset COPD (chronic obstructive pulmonary disease) Acute Dehydration Acute Failure to thrive in adult Acute
--- NOTE | 2017-08-05 14:38 | ASMTCMCOM ---
CM Note CM Note Notes: CM met w/ pts daughter, Ines for dispo planning (her number is [phone]). PT is recommending SNF. Ines would like pt to d/c to SNF. CM provided Ines w/ senior blue book. Ines will reach out to case management for list of SNFs that she would like her dad d/c to. Ines reports that he has private duty caregivers. Ines reports that Chelle Cunha (P#: [phone]) is the key person for the private duty caregiving. CM attempted to call Chelle twice but her voicemail is full. CM completed non triggering PASRR. CM to follow. Plan: TBD Date Signed: 08/05/2017 02:37 PM Electronically Signed By:MARIELOS Haddad
--- NOTE | 2017-08-05 16:44 | PDCARPN ---
Cardiology Progress Note Chief Complaint: Patient reports fatigue. Assessment/Plan: Assessment: 71-year-old male with previous history of COPD, hypertension, hypothyroidism. Admitted on 08/03/2017 for complain of weakness, no appetite, chronic back pain. and found to be dehydrated and cachectic. Abnormal EKG noted on admission with T-wave inversion in V2 through V6. CT scan showed acute/chronic PE in RLL. CT abdomen showed paraspinal free air perinephric stranding. Noted to have elevated Trop of 0.223 and BNP 43205. Echocardiogram done on 08/03/2017 showed [id number] LVH, mildly reduced LV systolic function with EF of 42%. Diastolic dysfunction was noted. Apical hypokinesis, normal RV size and function , mild MR, mild AI, RVSP of 46 mm Hg. Moderate TR. Small pericardial effusion. Repeated trop on 08/03 down to 0.174. Laparotomy with drainage of retroperitoneal abscess and rajeev by Dr Jiang on 08/04. Today: Patient is NPO. His blood pressures been stable with continuous IV fluid. Denies of any chest pain or pressure symptoms suggesting ischemia. He has maintained sinus rhythm, with no malignant pauses. Plan: 1. Elevated troponin and abnormal EKG: Troponins trended downward. Patient reports no symptoms suggesting of ischemia. The echocardiogram did show did note wall apical hypokinesis with reduced EF. Will plan on risk stratification inpatient, once patient has recovered from surgery and acute infectious process. Consider starting on aspirin therapy once cleared by surgery. 2. Elevated BNP: Potentially multifactorial by lower ejection fraction and for severe protein malnutrition. Patient has been hypotensive, and requiring IV fluids. Consideration of diuretic therapy with gentle diuresis once he has stabilized. 3. Cardiomyopathy: EF 42% by echo. Evaluate for ischemia as above, currently no beta-blockers due to hypotension., consider starting on low-dose carvedilol. 4. Pulmonary embolisms: Currently anticoagulation is on hold due to recent surgery, per hospitalist notes, heparin drip will be resumed tomorrow. 5. Retroperitoneal abscess: Patient is being followed by surgery , infectious disease. 08/05/17 16:03 Subjective: He denies of any chest pressure or pain. Reports no shortness of breath. Denies of any palpitations. Reviewed/Discussed With: other (Dr Melo) Objective: Vital Signs (8 Hrs) Temp Pulse Resp BP Pulse Ox 08/05/17 15:40 36.8 C 80 24 H 112/72 90 L 08/05/17 11:53 36.5 C 91 16 115/80 96 Intake/Output (24 Hrs) 08/04/17 08/05/17 08/06/17 05:59 05:59 05:59 Intake Total 2178.8 2656 Output Total 175 965 440 Balance 2003.8 1691 -440 Intake: Oral (ml) 0 IV Intake (ml) 1900 IV Infused (ml) 2178.8 756 Heparin/Dextrose 500 ml @ 83.8 23 Per Protocol IV CONT DUY Rx#:[id number] Ns 1,000 ml @ 100 mls/hr 545 583 IV CONT DUY Rx#: [id number] POTASSIUM Cl (KCl) 100 ml 100 @ 100 mls/hr IV Q1H DUY Rx#:[id number] Piperacillin/Tazo 3.375 50 50 gm/Dex 50 ml @ 100 mls/hr IV Q6H DUY Rx#: [id number] Output: Urine (ml) 175 700 225 Catheter 150 225 Incontinence 550 Urinal 175 Gastrointestinal Tube 50 Output (ml) Non-weighted Right Naris 50 Stomach [place] BRODY Drain Output (ml) 215 90 Right Abdomen Son 215 90 [place] T-Tube Drain Output (ml) 125 Right Abdomen T-Tube 125 Other: Weight 46.312 kg 45.495 kg 50.2 kg Intake Quantity No Sufficient Output Comment Incontinence XL incontinence stool Number of Voids Incontinence 1 Urinal 1 2 Number of Stools Incontinence 1 3 Result Diagrams: 08/05/17 04:55 08/05/17 04:55 Cardiac Labs: Cardiac Lab Results (72 Hrs) 08/03/17 22:55 Troponin I 0.174 H - Physical Exam Constitutional: no apparent distress, cachectic Ears, Nose, Mouth, Throat: dry mucous membranes Cardiovascular: regular rate and rhythm, pulses symmetric bilat, No jugular vein distention, No carotid bruit Peripheral Pulses: 1+: dorsalis-pedis (R), dorsalis-pedis (L), 2+: carotid (R), carotid (L) Respiratory: other ( diminished in bases bilateral, no rhonchi, rales, wheezing noted.) Gastrointestinal: other ( Hypoactive bowel sounds. Abdominal dressing clean dry and intact with 2 drains.) Skin: warm, No no edema ( +2 peripheral edema bilateral lower extremities to knees.) Neurologic: AAOx3 Psychiatric: cooperative, interactive ICD10 Worksheet Patient Problems: Problems Problem Status Onset COPD (chronic obstructive pulmonary disease) Acute Dehydration Acute Failure to thrive in adult Acute
--- NOTE | 2017-08-05 18:07 | HOSPPROG ---
Hospitalist Progress Note Assessment/Plan: notified by RN that current order of Dilaudid is not sufficient to control pain -increase dilaudid dosing to [id number] -notify surgery if pain is increasing Objective: Vital Signs Temp Pulse Resp BP Pulse Ox 36.8 C 80 24 H 112/72 90 L 08/05/17 15:40 08/05/17 15:40 08/05/17 15:40 08/05/17 15:40 08/05/17 15:40 Microbiology 08/04/17 18:30 Gram Stain - Final Peritoneal Fluid - Eswab Laboratory Results 08/05/17 04:55 08/05/17 04:55 08/04/17 08/05/17 08/06/17 05:59 05:59 05:59 Intake Total 2178.8 2656 1135 Output Total 175 965 530 Balance 2003.8 1691 605 PT 16.7 SEC (12.0-15.0) H 08/05/17 04:55 INR 1.33 (0.83-1.16) H 08/05/17 04:55 ICD10 Worksheet Patient Problems: Problems Problem Status Onset COPD (chronic obstructive pulmonary disease) Acute Dehydration Acute Failure to thrive in adult Acute
[2017-08-05] MEDS: HYDROmorphone HCL/NS 0.5 MG/ML SYR IVP PRN ×2 (18:16→21:55)
[2017-08-06] MEDS: HYDROmorphone HCL/NS 0.5 MG/ML SYR IVP PRN ×8 (00:56→23:14)
[2017-08-06] MEDS: PIPERACILLIN/TAZO 3.375 GM/DEX 50 ML IV SCH ×2 (03:51→09:58)
[2017-08-06 05:18] LABS: PLATELET COUNT 54 10^3/uL (150-400)
--- NOTE | 2017-08-06 09:31 | HOSPPROG ---
Hospitalist Progress Note Assessment/Plan: # Retroperitoneal abscess and possible perforation s/p ex lap with I&D of abscess removal of CBD stone - CT abd (personally reviewed and interpreted) paraspinal free air perinephric stranding. Discussed with Dr. Santos and Dr. Cook. E coli and Enterococcus on intra-operative Cx, per ID should be covered by Zosyn. BCx's ngtd. - continue empiric Zosyn, ID following - cont NPO, NG tube for now, still significant output - consider initiation of TPN tomorrow if still unable to eat - surgery following - pathology pending on gall bladder and retroperitoneal lymph node specimen # Hypotension - SBP 60's at presentation - suspect multifactorial from hypovolemia and acute infection, resolved - cont IVF while NPO, changed to D5 NS 20 KCl at 100/hr # Severe protein malnutrition - BMI 14 - pt reports 2/2 neglecting food - will need ongoing work up for malignancy or reversible cause beyond acute illnesses, as above, pathology pending - dietary consult when can take PO # Acute PE - holding heparin for plts 54K # Thrombocytopenia - >100K --> 54K. Possibly 2/2 acute illness. A little early for HIT. - monitor # Acute vs Chronic systolic HF - ECHO (reviewed) reduced systolic function with elevated BNP and peripheral edema - will likely need gentle diuresis when tolerable # hypothyroidism - cont synthroid # Indeterminate troponin - with reduced apical wall motion on ECHO - cardiology consulted, plan for inpt risk stratification once better recovered from surgery and acute infectious issues # Hypovolemic Hyponatremia - normalized with IVF's, continue # Diet - remains NPO with NG tube. May warrant TPN if still unable to eat tomorrow, which will be day 5 without oral intake. # proph - holding heparin with low platelets # dispo- cont inpt, ADD uncertain Subjective: Pt doing ok, some incisional tenderness, but denies severe pain. No N/V. +flatus, no BM. No fevers. NG tube present, NPO. Objective: Vital Signs Temp Pulse Resp BP Pulse Ox 36.4 C 79 16 122/73 H 97 08/06/17 07:21 08/06/17 07:21 08/06/17 07:21 08/06/17 07:21 08/06/17 07:21 Microbiology 05/31/18 18:30 Gram Stain - Final Peritoneal Fluid - Eswab Laboratory Results 08/06/17 04:55 08/06/17 04:55 08/05/17 08/06/17 08/07/17 05:59 05:59 05:59 Intake Total 2656 2300 Output Total 965 1625 100 Balance 1691 675 -100 PT 16.7 SEC (12.0-15.0) H 08/05/17 04:55 INR 1.33 (0.83-1.16) H 08/05/17 04:55 - Physical Exam Constitutional: chronically ill appearing, cachectic Eyes: PERRL Ears, Nose, Mouth, Throat: moist mucous membranes Cardiovascular: regular rate and rhythym Respiratory: no respiratory distress, clear to auscultation Gastrointestinal: normoactive bowel sounds, soft, non-tender abdomen, other ( dressing c/d/i, biliary drain and BRODY drain functioning) Skin: warm Musculoskeletal: full muscle strength Neurologic: AAOx3 Psychiatric: interacting appropriately ICD10 Worksheet Patient Problems: Problems Problem Status Onset COPD (chronic obstructive pulmonary disease) Acute Dehydration Acute Failure to thrive in adult Acute
--- NOTE | 2017-08-06 10:23 | PCMIDPN ---
Assessment/Plan: 1. Status post laparotomy with drainage of retroperitoneal abscess and cholecystectomy felt secondary to common bile duct stone: Continue Zosyn for now given clinical stability. Await susceptibilities on E coli and Enterococcus. Pathology pending. I am concerned about an underlying malignancy given his severe cachexia. Subjective: Patient is lying in bed, covered with a blanket. Tells me that he feels cold. Denies shaking chills. Pain is under control. Objective: Zosyn 3.375 g IV q.6 hours day 2 Afebrile Vital Signs Temp Pulse Resp BP Pulse Ox 36.4 C 79 16 122/73 H 97 08/06/17 07:21 08/06/17 07:21 08/06/17 07:21 08/06/17 07:21 08/06/17 07:21 Microbiology 08/04/17 18:30 Gram Stain - Final Peritoneal Fluid - Eswab Laboratory Results 08/06/17 04:55 08/06/17 04:55 08/05/17 08/06/17 08/07/17 05:59 05:59 05:59 Intake Total 2656 2300 Output Total 965 1625 100 Balance 1691 675 -100 Operative swabs from the abdomen show 2+ E coli and 2+ Enterococcus faecalis Blood cultures are negative so far - Physical Exam General Appearance: no apparent distress, cachetic EENT: other (No teeth, no evidence of thrush) Respiratory: lungs clear Cardiac/Chest: regular rate, rhythm Abdomen: other (Surgical dressing in place. Cholecystostomy tube in place draining bile. BRODY drain with some serosanguineous fluid) Skin: No rash ICD10 Worksheet Patient Problems: Problems Problem Status Onset COPD (chronic obstructive pulmonary disease) Acute Dehydration Acute Failure to thrive in adult Acute
--- NOTE | 2017-08-06 10:43 | SOAPPROG ---
SOAP Progress Note Assessment/Plan: Assessment: 71yo M s/p ex-lap, washout of RP abscess, CBD exploration - VSS, HDS - Cx growing enterococcus, Zosyn likely not covering. IM to discuss with ID changing abx - T tube with 125 cc out, cont to bag drainage - NGT with high outout, does have some bowel sounds. Keep NGT today - TPN tomorrow if not making progress with diet advancement Plan: 08/06/17 10:42 Subjective: feels better Objective: Vital Signs Temp Pulse Resp BP Pulse Ox 36.4 C 79 16 122/73 H 97 08/06/17 07:21 08/06/17 07:21 08/06/17 07:21 08/06/17 07:21 08/06/17 07:21 Microbiology 08/04/17 18:30 Gram Stain - Final Peritoneal Fluid - Eswab Laboratory Results 08/06/17 04:55 08/06/17 04:55 08/05/17 08/06/17 08/07/17 05:59 05:59 05:59 Intake Total 2656 2300 Output Total 965 1625 100 Balance 1691 675 -100 PT 16.7 SEC (12.0-15.0) H 08/05/17 04:55 INR 1.33 (0.83-1.16) H 08/05/17 04:55 ICD10 Worksheet Patient Problems: Problems Problem Status Onset COPD (chronic obstructive pulmonary disease) Acute Dehydration Acute Failure to thrive in adult Acute
--- NOTE | 2017-08-06 11:31 | PDCARPN ---
Cardiology Progress Note Chief Complaint: Patient reports ongoing episodes of discomfort, especially at out operative site. Assessment/Plan: Assessment: 71-year-old male with previous history of COPD, hypertension, hypothyroidism. Admitted on 08/03/2017 for complain of weakness, no appetite, chronic back pain. and found to be dehydrated and cachectic. Abnormal EKG noted on admission with T-wave inversion in V2 through V6. CT scan showed acute/chronic PE in RLL. CT abdomen showed paraspinal free air perinephric stranding. Noted to have elevated Trop of 0.223 and BNP 33436. Echocardiogram done on 08/03/2017 showed [id number] LVH, mildly reduced LV systolic function with EF of 42%. Diastolic dysfunction was noted. Apical hypokinesis, normal RV size and function , mild MR, mild AI, RVSP of 46 mm Hg. Moderate TR. Small pericardial effusion. Repeated trop on 08/03 down to 0.174. Laparotomy with drainage of retroperitoneal abscess and rajeev by Dr Jiang on 08/04. Today: Patient reports no chest pain or pressure. Reports no significant shortness of breath. Continues to be NPO. Hypoactive bowel sounds. Reports no shortness of breath. Continuous cardiac monitoring overnight shows that he is maintaining sinus rhythm with no malignant arrhythmias or pauses. Patient does report ongoing abdominal pain from incision site. WBC up today to 15.47. Retroperitoneal abscess culture results back positive for Escherichia Coli and Enterococcus Faecalis. Plan: 1. Elevated troponin and abnormal EKG: Troponins trended downward. He continues report no episodes of chest pressure or pain or symptoms suggesting of ischemia. Echo did show did note wall apical hypokinesis with reduced EF. Will plan on risk stratification inpatient, once patient has recovered from surgery and acute infectious process. Consider starting on aspirin therapy once cleared by surgery. 2. Elevated BNP: Potentially multifactorial by lower ejection fraction and for severe protein malnutrition. Patient has been hypotensive, and requiring IV fluids. Consideration of diuretic therapy with gentle diuresis once he has stabilized. 3. Cardiomyopathy: EF 42% by echo. Evaluate for ischemia as above, Consider starting on carvedilol at 3.125 mg p.o. twice daily once patient is able to take p.o.. 4. Pulmonary embolisms: Currently anticoagulation is on hold due to recent surgery, per hospitalist notes, heparin drip will be resumed when cleared by surgery. 5. Retroperitoneal abscess: Patient is being followed by surgery , infectious disease. Continue on antibiotic therapy. 08/06/17 11:26 Subjective: He reports no chest pressure or pain. Denies of any palpitations. Reports no significant shortness of breath. Reviewed/Discussed With: other (Dr Cole) Objective: Vital Signs (8 Hrs) Temp Pulse Resp BP Pulse Ox 08/06/17 07:21 36.4 C 79 16 122/73 H 97 08/06/17 04:00 36.7 C 85 16 122/73 H 99 Intake/Output (24 Hrs) 08/05/17 08/06/17 08/07/17 05:59 05:59 05:59 Intake Total 2656 2300 Output Total 965 1625 600 Balance 1691 675 -600 Intake: Oral (ml) 0 IV Intake (ml) 1900 IV Infused (ml) 756 2300 Heparin/Dextrose 500 ml @ 23 Per Protocol IV CONT DUY Rx#:[id number] Ns 1,000 ml @ 100 mls/hr 583 1945 IV CONT DUY Rx#: [id number] POTASSIUM Cl (KCl) 100 ml 100 @ 100 mls/hr IV Q1H DUY Rx#:[id number] Piperacillin/Tazo 3.375 50 355 gm/Dex 50 ml @ 100 mls/hr IV Q6H DUY Rx#: [id number] Output: Urine (ml) 700 625 500 Catheter 150 625 500 Incontinence 550 Gastrointestinal Tube 50 Output (ml) Non-weighted Right Naris 50 Stomach Door Sump NG Tube Output (ml) 600 100 Large Bore (>12 [place]) 600 100 Left Naris Stomach BRODY Drain Output (ml) 215 275 Right Abdomen Son 215 275 [place] T-Tube Drain Output (ml) 125 Right Abdomen T-Tube 125 Other: Weight 45.495 kg 49.6 kg Output Comment Incontinence XL incontinence stool Number of Voids Incontinence 1 Urinal 2 Number of Stools Catheter 1 Incontinence 3 Result Diagrams: 08/06/17 04:55 08/06/17 04:55 Cardiac Labs: Cardiac Lab Results (72 Hrs) 08/03/17 22:55 Troponin I 0.174 H - Physical Exam Constitutional: no apparent distress, cachectic Ears, Nose, Mouth, Throat: dry mucous membranes Cardiovascular: regular rate and rhythm, no murmurs, jugular vein distention (5 Cm above sternal notch 45 degree angle), pulses symmetric bilat Peripheral Pulses: 1+: dorsalis-pedis (R), dorsalis-pedis (L), 2+: carotid (R), carotid (L) Respiratory: other ( diminished in bases, no rhonchi, rales, or wheezing.) Gastrointestinal: other ( Hypoactive x4. Abdomen firm. Abdominal dressing CDI with 2 drains.) Skin: warm, No no edema ( +2 pedal edema bilateral lower extremities) Neurologic: AAOx3 Psychiatric: following commands ICD10 Worksheet Patient Problems: Problems Problem Status Onset COPD (chronic obstructive pulmonary disease) Acute Dehydration Acute Failure to thrive in adult Acute
--- NOTE | 2017-08-06 16:27 | ASMTCMCOM ---
CM Note CM Note Notes: Spoke with one of pt's daughters. They are visiting SNFs for possible admission. They asked for referrals to be sent to [facility]. Sent via [facility]. PASRR done. They may choose other SNFs as well. CM will continue to follow. Date Signed: 08/06/2017 04:26 PM Electronically Signed By:ARYAN Leigh
[2017-08-06] MEDS: VANCOMYCIN 500 MG in D5W 100 ML IV SCH (18:09)
[2017-08-06] MEDS: POTASSIUM Cl (KCl) 100 ML IV SCH ×2 (19:30→22:38)
[2017-08-07] MEDS: POTASSIUM Cl (KCl) 100 ML IV SCH ×4 (00:55→18:19)
[2017-08-07] MEDS: D5W NS 1,000 ML IV SCH (02:06)
[2017-08-07] MEDS: HYDROmorphone HCL/NS 0.5 MG/ML SYR IVP PRN ×4 (03:10→14:45)
[2017-08-07] MEDS: VANCOMYCIN 500 MG in D5W 100 ML IV SCH ×2 (03:11→17:31)
[2017-08-07 05:28] LABS: PLATELET COUNT 32 10^3/uL (150-400)
--- NOTE | 2017-08-07 08:55 | PDCARPN ---
Cardiology Progress Note Chief Complaint: abd pain Assessment/Plan: Assessment: s/p abd surgery Reduced EF PEs Plan: 08/07/17 08:53 Stable CV status today Re-start AC tx when cleared by surgery Continue to monitor H/H Subjective: c/o abd pain Reviewed/Discussed With: multidisciplinary team Time Spent with Patient: greater than 25 minutes Time Spent with Patient: Greater than 25 minutes spent on this patients care, greater than 50% of time spent counseling, educating, and coordinating care regarding the above mentioned plan. Objective: Vital Signs (8 Hrs) Temp Pulse Resp BP Pulse Ox 08/07/17 07:45 36.9 C 94 20 129/83 H 93 08/07/17 03:25 36.9 C 91 17 119/75 95 Intake/Output (24 Hrs) 08/06/17 08/07/17 08/08/17 05:59 05:59 05:59 Intake Total 2300 2365 Output Total 1690 1565 Balance 610 800 Intake: IV Intake (ml) 1130 IV Infused (ml) 2300 1235 D5w Ns 1,000 ml @ 100 mls 635 /hr IV CONT DUY Rx#: [id number] Ns 1,000 ml @ 100 mls/hr 1945 IV CONT DUY Rx#: [id number] POTASSIUM Cl (KCl) 100 ml 300 @ 100 mls/hr IV Q1H DUY Rx#:[id number] Piperacillin/Tazo 3.375 355 gm/Dex 50 ml @ 100 mls/hr IV Q6H DUY Rx#: [id number] Vancomycin 500 mg In D5w 100 100 ml @ 100 mls/hr IV Q12H DUY Rx#:[id number] metroNIDAZOLE 500 MG/NACL 200 100 ml @ 100 mls/hr IV Q8 DUY Rx#:[id number] Output: Urine (ml) 625 1150 Catheter 625 1150 NG Tube Output (ml) 600 300 Large Bore (>12 [place]ian) 600 300 Left Naris Stomach BRODY Drain Output (ml) 315 90 Right Abdomen Son 315 90 [place] T-Tube Drain Output (ml) 150 25 Right Abdomen T-Tube 150 25 Other: Weight 49.6 kg 47.315 kg Number of Voids Catheter 1 Number of Stools Catheter 1 Result Diagrams: 08/07/17 04:45 08/07/17 04:45 - Physical Exam Constitutional: cachectic Eyes: PERRL Ears, Nose, Mouth, Throat: moist mucous membranes Cardiovascular: regular rate and rhythm Peripheral Pulses: 1+: femoral (R), femoral (L) Respiratory: no crackles Gastrointestinal: normoactive bowel sounds Skin: no rashes Musculoskeletal: no muscular tenderness Psychiatric: cooperative ICD10 Worksheet Patient Problems: Problems Problem Status Onset COPD (chronic obstructive pulmonary disease) Acute Dehydration Acute Failure to thrive in adult Acute
--- NOTE | 2017-08-07 11:11 | HOSPPROG ---
Hospitalist Progress Note Assessment/Plan: # Retroperitoneal abscess and possible perforation s/p ex lap with I&D of abscess removal of CBD stone - POD #3. CT abd showed paraspinal free air and perinephric stranding. Discussed with Dr. Santos and Dr. Cook. E coli and Enterococcus on intra-operative Cx. BCx's ngtd. Pt pulled out NG tube overnight. - changed to Vanc/Ceftriaxone/Flagyl per ID - trial clears per surg - pathology pending on gall bladder and retroperitoneal lymph node specimen # Severe protein malnutrition - BMI 14 - pt reports 2/2 neglecting food. Also consider pulmonary cachexia - will need ongoing work up for malignancy or reversible cause beyond acute illnesses. As above, pathology pending - dietary consult once taking better po # Acute / ?chronic PE - holding heparin for plts 32K. Also raises concern for malignancy. Reviewed CT with pulm who notes with small volume, likely doesn't warrant anticoagulation. -check LE u/s to evaluate for risk of increased clot burden - neg for DVT # Acute vs Chronic hypoxemic respiratory failure 2/2 possibly chronic HF and COPD - ECHO (reviewed) reduced systolic function with elevated BNP and peripheral edema. Personally reviewed chest CT, note appearance of bullous emphysema. - will likely need gentle diuresis when tolerable - add duonebs, likely d/c home with spiriva, albuterol +/- inhaled steroid # Thrombocytopenia - >100K --> 32K. Possibly 2/2 acute illness. Timing could be c/w HIT - send HIT Ab - hold ASA, anticoagulation - cont to monitor # Hypotension - SBP 60's at presentation - suspect multifactorial from hypovolemia and acute infection, resolved - cont IVF until taking better po # hypothyroidism - cont synthroid # Indeterminate troponin - with reduced apical wall motion on ECHO - cardiology following, plan for inpt risk stratification once better recovered from surgery and acute infectious issues # Hypovolemic Hyponatremia - normalized with IVF's, continue # Diet - trial clears today. # proph - holding heparin with low platelets, cont SCD's # dispo- cont inpt, ADD uncertain Subjective: Pt feels ok, c/o abdominal discomfort. Pulled out NG tube overnight. No N/V. No fevers. No CP or SOB. Taking some clears today, tolerating. Good uop. Still with LE edema Objective: Vital Signs Temp Pulse Resp BP Pulse Ox 36.9 C 94 20 129/83 H 93 08/07/17 07:45 08/07/17 07:45 08/07/17 07:45 08/07/17 07:45 08/07/17 07:45 Microbiology 08/04/17 18:30 Gram Stain - Final Peritoneal Fluid - Eswab Laboratory Results 08/07/17 04:45 08/07/17 04:45 08/06/17 08/07/17 08/08/17 05:59 05:59 05:59 Intake Total 2300 2365 Output Total 1690 1565 Balance 610 800 PT 16.7 SEC (12.0-15.0) H 08/05/17 04:55 INR 1.33 (0.83-1.16) H 08/05/17 04:55 - Physical Exam Constitutional: chronically ill appearing, cachectic Eyes: PERRL Ears, Nose, Mouth, Throat: moist mucous membranes Cardiovascular: regular rate and rhythym Respiratory: no respiratory distress, reduced air movement Gastrointestinal: normoactive bowel sounds, other (soft, mild distention, mild TTP, no r/r/g) Skin: warm Musculoskeletal: full muscle strength Neurologic: AAOx3 Psychiatric: interacting appropriately ICD10 Worksheet Patient Problems: Problems Problem Status Onset COPD (chronic obstructive pulmonary disease) Acute Dehydration Acute Failure to thrive in adult Acute
--- NOTE | 2017-08-07 11:21 | PCMIDPN ---
Assessment/Plan: 1. Status post laparotomy with drainage of retroperitoneal abscess and cholecystectomy felt secondary to common bile duct stone: Patient's daughter strongly feels that he is more confused, and she is worried it could be related to the change in antibiotic. Will change levofloxacin to ceftriaxone, and continue vancomycin and metronidazole. Enterococcal susceptibilities are pending. Hopefully can change metronidazole to oral tomorrow, as his p.o. intake picks up. Obtain vancomycin trough tomorrow morning. 2. Thrombocytopenia: This proceeded vancomycin, and seems a bit early to be caused by Zosyn. Check HI T antibody. Over 25 mins spent with pt today. Subjective: Patient's daughter is worried that he is more confused after the change in antibiotic. Is also asking for nicotine patch. Wants to make sure he is not going home any time soon, she is very worried about him. Objective: Vancomycin 500 mg IV q.12 hours day 2 Metronidazole 500 mg IV q.8 hours day 2 Levofloxacin 750 mg IV daily day 2 (not dosed today yet) overall antibiotics day 3 Afebrile Vital Signs Temp Pulse Resp BP Pulse Ox 36.9 C 94 20 129/83 H 93 08/07/17 07:45 08/07/17 07:45 08/07/17 07:45 08/07/17 07:45 08/07/17 07:45 Microbiology 08/04/17 18:30 Gram Stain - Final Peritoneal Fluid - Eswab Laboratory Results 08/07/17 04:45 08/07/17 04:45 08/06/17 08/07/17 08/08/17 05:59 05:59 05:59 Intake Total 2300 2365 Output Total 1690 1565 Balance 610 800 Peritoneal fluid with 2+ E coli, susceptible to levofloxacin and ceftriaxone, resistant to Unasyn and intermediate to Zosyn 2+ Enterococcus faecalis, susceptibilities are pending Blood cultures remain negative Fungal cultures pending - Physical Exam General Appearance: no apparent distress, cachetic EENT: pharynx normal, No thrush Respiratory: lungs clear Cardiac/Chest: regular rate, rhythm Abdomen: distended, other (Cholecystostomy tube with green bile, BRODY bulb empty, hypoactive bowel sounds. Incision looks okay) Skin: No rash Neuro/Psych: other (He is alert and oriented for me today.) ICD10 Worksheet Patient Problems: Problems Problem Status Onset COPD (chronic obstructive pulmonary disease) Acute Dehydration Acute Failure to thrive in adult Acute
--- NOTE | 2017-08-07 11:22 | ASMTCMCOM ---
CM Note CM Note Notes: Spoke with patient's daughter. Added [facility] to list of SNF referrals and encouraged her to visit facilities. Discharge date TBD, Case Management will follow. Date Signed: 08/07/2017 11:21 AM Electronically Signed By:Merna Chowdhury RN
[2017-08-07] MEDS: NICOTINE 21 MG/24 HR PATCH TD SCH (12:13)
[2017-08-07] MEDS ORDERED: ALTEPLASE 2 MG VIAL IVP PRN (13:03)
[2017-08-07] MEDS ORDERED: LIDOCAINE 1% 300 MG/30 ML SDV ONE (13:49)
--- NOTE | 2017-08-07 14:18 | PDRADPN ---
Radiology Procedure Note Date of Procedure: 08/07/17 Radiologist: Juan Motley Anesthesia: Local (Specify) Pre-op Diagnosis: poor iv access Post-op Diagnosis: same Indication: meds iv Procedure: RUE pic Finding(s): non visualized basilic, patent brachial. 41cm picc terminates at cavoatrial junction. ok to use. Inf/Abcess present in the surg proc area at time of surgery?: No EBL: Minimal Complications: none
--- NOTE | 2017-08-07 14:33 | SOAPPROG ---
SOAP Progress Note Assessment/Plan: Assessment: 71yo M s/p ex-lap, washout of RP abscess, CBD exploration - VSS, HDS - Cx growing enterococcus, antibiotics tailored per Infectious Disease. White count has improved today, patient has been afebrile. - T tube with 25 cc out over last 24 hr, continue bag drainage. Anticipate that this will increase as patient begins diet. - nasogastric tube self remove yesterday, did well overnight denies nausea this morning. Okay to advance to clear liquids. - PICC line placed today, with still hold off on TPN as he is tolerating clear liquids Plan: 08/06/17 10:42 08/07/17 14:31 08/07/17 14:32 Subjective: Doing well today, pain is controlled. Objective: Vital Signs Temp Pulse Resp BP Pulse Ox 36.9 C 93 20 129/83 H 92 08/07/17 07:45 08/07/17 12:00 08/07/17 12:00 08/07/17 07:45 08/07/17 12:00 Microbiology 08/04/17 18:30 Gram Stain - Final Peritoneal Fluid - Eswab Laboratory Results 08/07/17 04:45 08/07/17 04:45 08/06/17 08/07/17 08/08/17 05:59 05:59 05:59 Intake Total 2300 2365 Output Total 1690 1565 Balance 610 800 PT 16.7 SEC (12.0-15.0) H 08/05/17 04:55 INR 1.33 (0.83-1.16) H 08/05/17 04:55 ICD10 Worksheet Patient Problems: Problems Problem Status Onset COPD (chronic obstructive pulmonary disease) Acute Dehydration Acute Failure to thrive in adult Acute
[2017-08-07] MEDS: IPRATROPIUM/ALBUTEROL 3 ML DEYVIAL IH SCH ×2 (16:30→20:51)
[2017-08-07] MEDS ORDERED: traZODone 100 MG TAB PO PRN (17:51)
[2017-08-07] MEDS: oxyCODONE IR 5 MG TAB PO PRN ×2 (18:17→22:25)
[2017-08-07] MEDS: POTASSIUM Cl (KCl) 50 ML IV SCH (23:17)
[2017-08-08] MEDS: POTASSIUM Cl (KCl) 50 ML IV SCH ×5 (00:42→22:58)
--- NOTE | 2017-08-08 00:59 | CPEKG ---
Heart Rate: 116 RR Interval: 517 P-R Interval: 110 QRSD Interval: 106 QT Interval: 364 QTC Interval: 506 P Randolph: 0 QRS Randolph: 0 T Wave Randolph: 190 EKG Severity - ABNORMAL ECG - EKG Impression: LIKELY SINUS TACHYCARDIA . SIGNIFICANT ARTIFACT. EKG Impression: VENTRICULAR PREMATURE COMPLEX EKG Impression: LOW VOLTAGE IN FRONTAL LEADS EKG Impression: REPOL ABNRM SUGGESTS ISCHEMIA, ANT-LAT LEADS EKG Impression: PROLONGED QT INTERVAL EKG Impression: SIGNIFICANT BASELINE ARTIFACT. PLEASE REPEAT EKG. EKG Impression: COMPARED WITH 08/03/2017 HEART RATE FASTER. Electronically Signed By: Nivia Cole 08-Aug-2017 16:30:58
--- NOTE | 2017-08-08 01:14 | HOSPPROG ---
Hospitalist Progress Note Assessment/Plan: 71 yo M w copd, depressed lvef admitted w ruq abscess now w tachypnea, tachycardia pulm: doubt new pe as no clot onm ultrasound today and low abd likley chronic clot burde cxr w increased lower lung air space disease, likely 2/2 abdominal process vs less likely aspiration poor pulm reserve noted needs volume (see below), may get worse full code tachycardia: labs c/w volume depletion gentle bolus this may worsen pum status PE considered ekg w unchanged lateral twi check trop lauri drainage: now tyrone d/w [place] no peritoneal signs to step down 60' crit care Subjective: called to see patient for increasing 02 needs, tachycardia. chart reviewed, d/w dr perry Objective: Vital Signs Temp Pulse Resp BP Pulse Ox 36.3 C 116 H 30 H 119/87 H 91 L 08/08/17 00:00 08/08/17 00:00 08/08/17 00:00 08/08/17 00:00 08/08/17 00:00 Microbiology 08/04/17 18:30 Gram Stain - Final Peritoneal Fluid - Eswab Laboratory Results 08/08/17 00:36 08/08/17 00:36 08/06/17 08/07/17 08/08/17 05:59 05:59 05:59 Intake Total 2300 2365 Output Total 1690 1565 805 Balance 610 800 -805 PT 16.7 SEC (12.0-15.0) H 08/05/17 04:55 INR 1.33 (0.83-1.16) H 08/05/17 04:55 - Physical Exam Constitutional: chronically ill appearing, cachectic Eyes: PERRL Ears, Nose, Mouth, Throat: moist mucous membranes, hearing normal Cardiovascular: tachycardia Respiratory: no respiratory distress, other (tachypneic, crackles at base) Gastrointestinal: distension, No normoactive bowel sounds, No guarding, No rebound Genitourinary: no bladder fullness, daley in urethra, other (dark urine in daley ) Skin: warm, normal color Musculoskeletal: No full muscle strength ICD10 Worksheet Patient Problems: Problems Problem Status Onset COPD (chronic obstructive pulmonary disease) Acute Dehydration Acute Failure to thrive in adult Acute
[2017-08-08] MEDS ORDERED: ALBUMIN 25% 50 ML IV ONE (01:16)
[2017-08-08 01:20] LABS: PLATELET COUNT 32 10^3/uL (150-400)
--- NOTE | 2017-08-08 01:46 | SOAPPROG ---
SOAP Progress Note Assessment/Plan: Assessment: 71yo M s/p ex-lap, washout of RP abscess, CBD exploration - received a call from overnight IM Re tachycardia, hypoxia and change in BRODY output - exam - Pt visibly SOB, maybe a little more confused than baseline but able to tell me he has no abd pain - abd exam stable, maybe a little more distended but otherwise soft. BRODY has changed from serosang to what appears to be necrotic material ? retroperitoneal fat. Doesnt look bilious. - T tube output stable and bilious - agree with tx to higher level of care. Dont see anything too alarming on exam but will monitor. Plan: 08/06/17 10:42 08/07/17 14:31 08/07/17 14:32 08/08/17 01:44 Subjective: SOB, abd pain about the same Objective: Vital Signs Temp Pulse Resp BP Pulse Ox 36.6 C 115 H 34 H 119/80 80 L 08/08/17 01:10 08/08/17 01:10 08/08/17 01:10 08/08/17 01:10 08/08/17 01:10 Microbiology 08/04/17 18:30 Gram Stain - Final Peritoneal Fluid - Eswab Laboratory Results 08/08/17 00:36 08/08/17 00:36 08/06/17 08/07/17 08/08/17 05:59 05:59 05:59 Intake Total 2300 2365 Output Total 1690 1565 805 Balance 610 800 -805 PT 16.7 SEC (12.0-15.0) H 08/05/17 04:55 INR 1.33 (0.83-1.16) H 08/05/17 04:55 ICD10 Worksheet Patient Problems: Problems Problem Status Onset COPD (chronic obstructive pulmonary disease) Acute Dehydration Acute Failure to thrive in adult Acute
[2017-08-08] MEDS: VANCOMYCIN 500 MG in D5W 100 ML IV SCH (03:25)
[2017-08-08] MEDS: IPRATROPIUM/ALBUTEROL 3 ML DEYVIAL IH SCH ×4 (04:48→21:38)
[2017-08-08 04:57] LABS: PLATELET COUNT 27 10^3/uL (150-400)
[2017-08-08] MEDS: LEVOTHYROXINE 50 MCG TAB PO SCH (05:04)
--- NOTE | 2017-08-08 06:48 | PDCARPN ---
Cardiology Progress Note Chief Complaint: abd/back pain Assessment/Plan: Assessment: s/p abd surgery Reduced EF PEs Plan: 08/07/17 08:53 Stable CV status today Re-start AC tx when cleared by surgery Continue to monitor H/H 08/08/17 06:46 transferred to ICU multiple ongoing issues Increased HR--? infection vs pain Continue per CC/surgery supportive CV care No indication for cath at this time H/H and plt count still trending low 08/08/17 06:48 Subjective: lethargic Reviewed/Discussed With: multidisciplinary team Time Spent with Patient: greater than 25 minutes Time Spent with Patient: Greater than 25 minutes spent on this patients care, greater than 50% of time spent counseling, educating, and coordinating care regarding the above mentioned plan. Objective: Vital Signs (8 Hrs) Temp Pulse Resp BP Pulse Ox 08/08/17 06:00 99 29 H 113/87 H 97 08/08/17 05:00 90 29 H 129/84 H 93 08/08/17 04:00 90 26 H 115/89 H 100 08/08/17 03:00 95 29 H 120/82 H 100 08/08/17 02:05 36.9 C 102 H 26 H 121/79 H 98 08/08/17 01:10 36.6 C 115 H 34 H 119/80 80 L 08/08/17 00:00 36.3 C 116 H 30 H 119/87 H 91 L Intake/Output (24 Hrs) 08/07/17 08/08/17 08/09/17 05:59 05:59 05:59 Intake Total 2365 2402 Output Total 1565 1115 Balance 800 1287 Intake: IV Intake (ml) 1130 2402 IV Infused (ml) 1235 D5w Ns 1,000 ml @ 100 mls 635 /hr IV CONT DUY Rx#: [id number] POTASSIUM Cl (KCl) 100 ml 300 @ 100 mls/hr IV Q1H DUY Rx#:[id number] Vancomycin 500 mg In D5w 100 100 ml @ 100 mls/hr IV Q12H DUY Rx#:[id number] metroNIDAZOLE 500 MG/NACL 200 100 ml @ 100 mls/hr IV Q8 DUY Rx#:[id number] Output: Urine (ml) 1150 540 Catheter 1150 540 NG Tube Output (ml) 300 Large Bore (>12 [place]er) 300 Left Naris Stomach BRODY Drain Output (ml) 90 515 Right Abdomen Son 90 515 Castro T-Tube Drain Output (ml) 25 60 Right Abdomen T-Tube 25 60 Other: Weight 47.315 kg 48.7 kg Number of Voids Catheter 1 Number of Stools Catheter 1 1 Result Diagrams: 08/08/17 04:40 08/08/17 04:40 Cardiac Labs: Cardiac Lab Results (72 Hrs) 08/08/17 01:30 Troponin I 0.843 H - Physical Exam Constitutional: no apparent distress, cachectic Eyes: PERRL Ears, Nose, Mouth, Throat: poor dentition Cardiovascular: regular rate and rhythm Peripheral Pulses: 1+: femoral (R), femoral (L) Gastrointestinal: normoactive bowel sounds Genitourinary: flank pain Skin: no rashes Musculoskeletal: no muscular tenderness Neurologic: CN II-XII grossly intact Psychiatric: not anxious Lymph, Heme, Immunologic: no lymphadenopathy ICD10 Worksheet Patient Problems: Problems Problem Status Onset COPD (chronic obstructive pulmonary disease) Acute Dehydration Acute Failure to thrive in adult Acute
[2017-08-08] MEDS: D5W NS 1,000 ML IV SCH ×2 (08:37→22:58)
[2017-08-08] MEDS: NICOTINE 21 MG/24 HR PATCH TD SCH ×2 (08:39→21:59)
--- NOTE | 2017-08-08 09:08 | HOSPPROG ---
Hospitalist Progress Note Assessment/Plan: 71 yo male with h/o COPD admitted with abdominal pain s/p surgery for retroperitoneal abscess, developed increased O2 requirement and tachycardia overnight, ?increased abdominal pain vs aspiration vs PE, transferred to SDU. # Retroperitoneal abscess and possible perforation s/p ex lap with I&D of abscess removal of CBD stone - POD #4. CT abd showed paraspinal free air and perinephric stranding. E coli and Enterococcus on intra-operative Cx. BCx's ngtd. - changed to Imipenem per ID - discussed with Dr. Jiang, who will consult GI for endoscopy to r/o perf'd PUD - cont clears per surg - pathology negative on gall bladder and retroperitoneal lymph node specimen # Severe protein malnutrition - BMI 14 - pt reports 2/2 neglecting food. Also consider pulmonary cachexia - will need ongoing work up for malignancy or reversible cause beyond acute illnesses. - dietary consult once taking better po # Acute / ?chronic PE - holding heparin for plts 32K. Also raises concern for malignancy. Reviewed CT with pulm who notes with small volume, likely doesn't warrant anticoagulation. LE u/s neg for DVT. - not a candidate for anticoagulation currently with plts 27K - no indication for IVC filter with neg LE us # Acute vs Chronic hypoxemic respiratory failure 2/2 possibly chronic HF and COPD +poss contribution from PE - ECHO (reviewed) reduced systolic function with elevated BNP and peripheral edema. Personally reviewed chest CT, note appearance of bullous emphysema. - rpt CXR pers reviewed/interp- increased right basilar consolidation and effusion with developing retrocardiac infiltrate - speech eval for possible aspiration - will likely need gentle diuresis when tolerable, not terribly volume overloaded today - cont duonebs for COPD, likely d/c home with spiriva, albuterol +/- inhaled steroid # Thrombocytopenia - >100K --> 27K. Possibly 2/2 acute illness. Timing could be c/w HIT - HIT Ab pending - hold ASA, anticoagulation - cont to monitor # Hypotension - SBP 60's at presentation - suspect multifactorial from hypovolemia and acute infection, resolved - cont IVF until taking better po # hypothyroidism - cont synthroid # Elevated troponin - with reduced apical wall motion on ECHO, trop up to 0.8 overnight from 0.2 - cardiology following, plan for inpt risk stratification once better recovered from surgery and acute infectious issues - no indication for cath per Dr. Garcia this am # Hypovolemic Hyponatremia - normalized with IVF's, continue # Diet - clears, advance per surgery # proph - holding heparin with low platelets, cont SCD's # dispo- cont inpt, ADD uncertain Subjective: Pt had increased O2 needs and tachycardia overnight, transferred to SDU. He denies pain this am. Breathing fine. Denies CP. Doesn't recall any untoward events overnight, though poor historian. Objective: Vital Signs Temp Pulse Resp BP Pulse Ox 36.6 C 95 24 H 119/90 H 99 08/08/17 08:00 08/08/17 08:00 08/08/17 08:00 08/08/17 08:00 08/08/17 08:00 Microbiology 08/04/17 18:30 Gram Stain - Final Peritoneal Fluid - Eswab Laboratory Results 08/08/17 04:40 08/08/17 04:40 08/07/17 08/08/17 08/09/17 05:59 05:59 05:59 Intake Total 2365 2402 Output Total 1565 1115 Balance 800 1287 PT 16.7 SEC (12.0-15.0) H 08/05/17 04:55 INR 1.33 (0.83-1.16) H 08/05/17 04:55 - Physical Exam Constitutional: chronically ill appearing, cachectic Eyes: PERRL Ears, Nose, Mouth, Throat: moist mucous membranes Cardiovascular: regular rate and rhythym Respiratory: no respiratory distress, clear to auscultation, reduced air movement Gastrointestinal: normoactive bowel sounds, distension Skin: warm Musculoskeletal: full muscle strength, other (1-2+ b/l pre-tibial pitting edema) Neurologic: AAOx3 Psychiatric: interacting appropriately ICD10 Worksheet Patient Problems: Problems Problem Status Onset COPD (chronic obstructive pulmonary disease) Acute Dehydration Acute Failure to thrive in adult Acute
--- NOTE | 2017-08-08 09:34 | SOAPPROG ---
SOAP Progress Note Assessment/Plan: Assessment/Plan: 71 Y M FTT, PE, reduced EF 42%, 30 lbs weight loss, thrombocytopenia, s/p cholecystectomy c CBD exploration for choledocholithiasis , s/p washout out of retroperitoneal abscess. Appreciate medicine, ID, and cards input. Discussed directly with medicine and seen with Dr. Jiang today. Will consult GI today. He may need upper endoscopy to r/o occult walled off peptic ulcer. Gallbladder and large stones probably not the cause of his retroperitoneal abscess per Dr. Jiang' assessment at surgery. Hold anticoagulation in case of endoscopy. If no procedure planned then could restart AC for his PE. Continue T tube and BRODY drain. BRODY drain more brown--possibly bilious. Abdomen is soft without peritoneal signs. Continue abx per ID. E coli and enterococcus on cultures. S: feels ok. no real complaints. pain controlled. O: alert, nad, thin mmm, no jaundice ctab cor rrr abd soft, t tube bilious, BRODY drain brown/green 08/08/17 09:25 Objective: Vital Signs Temp Pulse Resp BP Pulse Ox 36.6 C 95 24 H 119/90 H 99 08/08/17 08:00 08/08/17 08:00 08/08/17 08:00 08/08/17 08:00 08/08/17 08:00 Microbiology 08/04/17 18:30 Gram Stain - Final Peritoneal Fluid - Eswab Laboratory Results 08/08/17 04:40 08/08/17 04:40 08/07/17 08/08/17 08/09/17 05:59 05:59 05:59 Intake Total 2365 2402 Output Total 1565 1115 Balance 800 1287 PT 16.7 SEC (12.0-15.0) H 08/05/17 04:55 INR 1.33 (0.83-1.16) H 08/05/17 04:55 ICD10 Worksheet Patient Problems: Problems Problem Status Onset COPD (chronic obstructive pulmonary disease) Acute Dehydration Acute Failure to thrive in adult Acute
--- NOTE | 2017-08-08 11:52 | GCON ---
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 HISTORY OF PRESENT ILLNESS: The patient is a 71-year-old white male with a past medical history incl uding hypothyroidism, hypertension, chronic lumbar stenosis, and chronic back pain, chronic obstructi ve pulmonary disease, chronic hypoxemic respiratory failure for which he is on chronic oxygen use at home; he resides at [facility], and cervical stenosis. He was admitted on 08/03/2017 with hypotension and the concern for a perinephric abscess and abdominal perforation. He eventually went to the oper ating room after being found to have a retroperitoneal abscess and possible perforation. He underwen t an ex lap with I and D of abscess and removal of common bile duct stones. Early in the morning of 08/08/2017, he was found to be more hypoxemic, felt to be possibly secondary to aspiration. He was a lso somewhat tachycardic and he was subsequently transferred to the intensive care unit. In discussi on with the patient, he states that with exception of abdominal pain, he is doing reasonably well. H e does admit to being mildly breathless. There is no cough or production of sputum. There is no fev er or night sweats. PAST MEDICAL HISTORY: Is again significant for chronic obstructive pulmonary disease, chronic hypoxe gunjan respiratory failure, chronic back pain with lumbar stenosis, hypertension, hypothyroidism. FAMILY HISTORY: Significant for liver cancer. ALLERGIES: No known allergies to medications. SOCIAL HISTORY: A [id number] smoker. No significant alcohol use. 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 He resides in [place], [place]. HOME MEDICATIONS: Include acyclovir, Fosamax, vitamin D, Lidex cream, Flonase, hydroxyzine, levothyr oxine, lisinopril, hydrochlorothiazide, Naprosyn, oxycodone, tamsulosin, and trazodone. PHYSICAL EXAM: VITAL SIGNS: Blood pressure 119/90, pulse 95, respirations 24, temperature is 36.6, oxygen saturation 99% on 6 L. GENERAL: He is a thin, malnourished, elderly white male, who is resti ng comfortably on supplemental oxygen. HEENT: Eyes are PERRLA, EOMI. Throat shows no erythema or t onsillar hypertrophy. NECK: Supple. There is no cervical adenopathy. HEART: Regular rate and rhy thm with a 2/6 systolic murmur left sternal border without radiation. LUNGS: Diminished breath soun ds and a prolongation expiratory phase, but there is no wheeze. ABDOMEN: Soft, but diffusely tender . Bowel sounds are diminished. EXTREMITIES: No clubbing, cyanosis, or edema. LABORATORIES: White count is 13.9, hemoglobin 10, hematocrit 31, platelet count is 32. Sodium 139, potassium 4.0, chloride 111, CO2 is 24, BUN is 12, creatinine 0.4, glucose is 133. IMPRESSION: 1. Status post retroperitoneal bleed. 2. History of chronic obstructive pulmonary disease. 3. Acute on chronic respiratory failure. This is improved. 4. Severe protein malnutrition. 5. Acute pulmonary embolus. 6. Thrombocytopenia. 7. Hypotension. 8. Hypothyroidism. 9. Retroperitoneal abscess. RECOMMENDATIONS: 1. Wean FiO2 as tolerated. 2. DVT and PE prophylaxis. 3. Stress ulcer prophylaxis. 4. Likely to have endoscopy soon. 5. Agree with nebulized to both albuterol and Atrovent. 6. Adequate pain control. 7. Close cardiovascular monitoring. /[id number]/MODL
[2017-08-08] MEDS: NS IV SCH ×2 (12:07→18:10)
[2017-08-08] MEDS: CILASTATIN SODIUM IV SCH ×2 (12:07→18:10)
[2017-08-08] MEDS: IMIPENEM IV SCH ×2 (12:07→18:10)
--- NOTE | 2017-08-08 12:48 | PCMIDPN ---
Assessment/Plan: Assessment: Right-sided retroperitoneal abscess probably from biliary source. Status post abscess drainage and gallbladder removal. Clinically seems to be doing better today. Less complaint of pain and discomfort. Appetite is still poor. Patient has E coli as well as enterococcus faecalis in his culture from the retroperitoneal collection. The drainage bulb is full of bilious fluid today however during surgery the area was purulent and did not have significant biloma. Given the micro findings we will consolidate to imipenem to have coverage of both the enterococcus faecalis as well as the E coli that has a significant amount of beta lactam resistance. Plan: 1. Discontinue vancomycin, ceftriaxone and Flagyl. 2. Start imipenem. Pharmacy to dose given significant body weight issues. 3. Follow up with supportive care and clinical progress. Subjective: Patient is sitting up in a chair in his hospital room in the ICU. Clinically he is appearing better than he did last week. He denies any significant complaint. No breathing problems. Decreased pain in the right flank the brought him in. Objective: Vancomycin # 3 Ceftriaxone # 1 Flagyl # 3 Vital Signs Temp Pulse Resp BP Pulse Ox 36.6 C 95 18 113/87 H 96 08/08/17 11:36 08/08/17 11:36 08/08/17 11:36 08/08/17 11:36 08/08/17 11:36 Microbiology 08/04/17 18:30 Gram Stain - Final Peritoneal Fluid - Eswab Laboratory Results 08/08/17 04:40 08/08/17 04:40 08/07/17 08/08/17 08/09/17 05:59 05:59 05:59 Intake Total 2365 2402 Output Total 1565 1115 Balance 800 1287 - Physical Exam General Appearance: WD/WN, alert, no apparent distress, cachetic, non-toxic Respiratory: lungs clear, normal breath sounds, No respiratory distress Cardiac/Chest: regular rate, rhythm, No tachycardia Extremities: non-tender, normal inspection Abdomen: non-tender, soft, other (BRODY bulb from retroperitoneal area on the right side with bilious fluid.) Skin: normal color, warm/dry, No rash Neuro/Psych: alert, normal mood/affect, oriented x 3 ICD10 Worksheet Patient Problems: Problems Problem Status Onset COPD (chronic obstructive pulmonary disease) Acute Dehydration Acute Failure to thrive in adult Acute
--- NOTE | 2017-08-08 13:53 | GCON ---
[f rep st] CONSULTATION REFERRING PHYSICIAN: Dr. Shin Jiang CHIEF COMPLAINT: 71-year-old male with retroperitoneal abscess, question peptic ulcer disease. HISTORY OF PRESENT ILLNESS: I have been asked to see this gentleman in consultation by Dr. Jiang for evaluation for possible peptic ulcer disease. This 71-year-old gentleman has very complex medical history. He has a history of hypothyroidism, hypertension, chronic lumbar stenosis, and chronic back pain. He also has a history of COPD, chronic hypoxia with respiratory failure, on chronic oxygen at home. He was admitted on 08/03/2017, with hypotension, a perinephric abscess, and concern for abdominal perforation. He underwent exploratory laparotomy. He was found to have a retroperitoneal abscess with possible perforation. He underwent I and D of abscess and removal of common bile duct stone. On 08/08, he was found to be more hypoxic, secondary to aspiration. He was somewhat tachycardiac and was transferred to the intensive care unit. Dr. Jiang is concerned that he may have had a perforation from a perforated ulcer. The patient has no prior history of peptic ulcer disease per report. Asked to see the patient for further evaluation. PAST MEDICAL HISTORY: Remarkable for COPD, chronic hypoxia, respiratory failure , chronic back pain, lumbar stenosis, hypertension, hypothyroidism. FAMILY HISTORY: Remarkable for liver cancer. Otherwise, noncontributory as it pertains to chief complaint. ALLERGIES: No known drug allergies. SOCIAL HISTORY: His is a smoker, 55 pack year history. No significant alcohol use. 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 Lives in [place], [place]. MEDICATIONS: Prior to admission, included acyclovir, Fosamax, vitamin D, Lidex cream, Flonase, hydroxyzine, levothyroxine, lisinopril/hydrochlorothiazide, naproxen, oxycodone, tamsulosin, and trazodone. REVIEW OF SYSTEMS: Negative for 10 systems other than listed in the HPI. PHYSICAL EXAMINATION: GENERAL: A very chronically ill appearing gentleman in no acute distress, lying in bed. VITAL SIGNS: 113/87, heart rate of 95, respiratory rate 18, 96% sat on 3 L nasal cannula, 36.6. HEENT: Normocephalic , atraumatic. EOMI. NECK: Supple. No cervical adenopathy. No thyromegaly. Mucous membranes moist. LUNGS: Clear. CARDIAC: S1, S2 without murmur. ABDOMEN: Soft. Intact dressing. T-tube in place. BRODY drain in place. EXTREMITIES: Without clubbing with 2+ edema. NEURO: Nonfocal. SKIN: Warm, dry, intact. PSYCH: Affect is somewhat flat. LABORATORY DATA: Hemoglobin 9.7, hematocrit 28.8. PT of 16.7, INR of 1.33, PTT 31.4. Serum chemistries: Serum sodium 138, potassium 4.2, chloride 111, CO2 21, BUN 11, creatinine 0.4. IMPRESSION: 71-year-old male admitted with retroperitoneal abscess and infection, status post common bile duct exploration, cholecystectomy. Question intraabdominal perforation, rule out peptic ulcer disease. RECOMMENDATIONS: n.p.o. after midnight. Proceed with diagnostic endoscopy. Patient is at high risk due to significant coronary disease. Will ask Anesthesia for assistance for sedation for endoscopy. We will follow with you. /[id number]/MODL MTDD
--- NOTE | 2017-08-08 16:31 | ASMTCMCOM ---
HARPER Note HARPER Note Notes: Numerous daughters over lapping in their hospital support for patient. Patient made his daughter Nicole his MPOA. She is completing the MPOA form for phone#'s and addresses and will give to CM Tuesday to make copies and place in chart. Date Signed: 08/08/2017 04:30 PM Electronically Signed By:Lu Kent LCSW
[2017-08-08] MEDS: PANTOPRAZOLE SODIUM 40 MG VIAL IVP SCH (16:40)
[2017-08-08] MEDS ORDERED: IOPAMIDOL (ISOVUE-300) 100 ML BTL ONE (17:35)
[2017-08-08] MEDS: oxyCODONE IR 5 MG TAB PO PRN (20:59)
[2017-08-08] MEDS ORDERED: NICOTINE POLACRILEX 2 MG GUM B PRN (21:14)
[2017-08-09] MEDS: CILASTATIN SODIUM IV SCH ×5 (00:10→23:29)
[2017-08-09] MEDS: IMIPENEM IV SCH ×5 (00:10→23:29)
[2017-08-09] MEDS: NS IV SCH ×5 (00:10→23:29)
[2017-08-09] MEDS: LEVOTHYROXINE 50 MCG TAB PO SCH (05:14)
[2017-08-09 05:41] LABS: PLATELET COUNT 24 10^3/uL (150-400)
[2017-08-09] MEDS: IPRATROPIUM/ALBUTEROL 3 ML DEYVIAL IH SCH ×4 (06:02→20:13)
--- NOTE | 2017-08-09 06:56 | PDCARPN ---
Cardiology Progress Note Chief Complaint: retro abscess Assessment/Plan: Assessment: s/p abd surgery Reduced EF PEs Plan: 08/07/17 08:53 Stable CV status today Re-start AC tx when cleared by surgery Continue to monitor H/H 08/08/17 06:46 transferred to ICU multiple ongoing issues Increased HR--? infection vs pain Continue per CC/surgery supportive CV care No indication for cath at this time H/H and plt count still trending low 08/08/17 06:48 08/09/17 06:54 Lethargic Endoscopy planned for today Patient cleared from CV perspective as need for procedure outweighs CV risks Continue ICU support Multiple ongoing issues prognosis guarded Subjective: lethargic Reviewed/Discussed With: multidisciplinary team Time Spent with Patient: greater than 25 minutes Time Spent with Patient: Greater than 25 minutes spent on this patients care, greater than 50% of time spent counseling, educating, and coordinating care regarding the above mentioned plan. Objective: Vital Signs (8 Hrs) Temp Pulse Resp BP Pulse Ox 08/09/17 06:04 100 20 08/09/17 04:00 36.4 C 105 H 19 125/70 H 99 08/09/17 00:00 36.8 C 94 21 H 119/77 97 Intake/Output (24 Hrs) 08/08/17 08/09/17 08/10/17 05:59 05:59 05:59 Intake Total 2402 2509 Output Total 1115 1990 Balance 1287 519 Intake: Oral (ml) 350 IV Intake (ml) 2402 IV Infused (ml) 2159 D5w Ns 1,000 ml @ 100 mls 1895 /hr IV CONT DUY Rx#: [id number] Imipenem/Cilastatin 100 Sodium 400 mg In Ns 100 ml @ 100 mls/hr IV Q6 DUY Rx#:[id number] POTASSIUM Cl (KCl) 50 ml 164 @ 50 mls/hr IV Q1H DUY Rx #:[id number] Output: Urine (ml) 540 650 Catheter 540 650 BRODY Drain Output (ml) 515 1170 Right Abdomen Son 515 1170 [place] T-Tube Drain Output (ml) 60 170 Right Abdomen T-Tube 60 170 Other: Weight 48.7 kg 47.8 kg Number of Stools Catheter 1 1 Result Diagrams: 08/09/17 05:00 08/09/17 05:00 Cardiac Labs: Cardiac Lab Results (72 Hrs) 08/08/17 01:30 Troponin I 0.843 H - Physical Exam Constitutional: no apparent distress Eyes: PERRL Ears, Nose, Mouth, Throat: moist mucous membranes Cardiovascular: regular rate and rhythm Peripheral Pulses: 1+: femoral (R), femoral (L) Respiratory: no crackles Gastrointestinal: normoactive bowel sounds Genitourinary: flank pain Skin: no rashes Musculoskeletal: no muscular tenderness Neurologic: other (lethargic) ICD10 Worksheet Patient Problems: Problems Problem Status Onset COPD (chronic obstructive pulmonary disease) Acute Dehydration Acute Failure to thrive in adult Acute
--- NOTE | 2017-08-09 08:03 | PDANEPAE ---
ANE Past Medical History - Cardiovascular History Hx Hypertension: Yes Hx Arrhythmias: No Hx Chest Pain: No Hx Coronary Artery / Peripheral Vascular Disease: No Hx CHF / Valvular Disease: No Hx Palpitations: No - Pulmonary History Hx COPD: Yes Hx Asthma/Reactive Airway Disease: No Hx Recent Upper Respiratory Infection: No Hx Oxygen in Use at Home: Yes O2 in Use at Home (L/minute): 2 Hx Sleep Apnea: No Sleep Apnea Screening Result - Last Documented: Positive - Endocrine History Hx Diabetes: No Hypothyroid: No Hyperthyroid: No Obesity: no - Chronic Pain History Chronic Pain: Yes ANE Review of Systems Review of Systems: ANE Patient History - Allergies Allergies/Adverse Reactions: No Known Allergies Allergy (Unverified 08/03/17 11:42) - Home Medications Home Medications: Acyclovir [Zovirax 400 mg (*)] 400 mg PO TID PRN 08/03/17 [Last Taken Unknown] Alendronate Sodium [Fosamax 70 MG (*)] 70 mg PO Q7D 08/03/17 [Last Taken Unknown ] Cholecalciferol Vit D3 [Vitamin D3 2000 units tab (OTC)] 2,000 units PO DAILY [Last Taken Unknown] Finasteride [Proscar 5 MG (*)] 5 mg PO DAILY 08/03/17 [Last Taken Unknown] Fluocinonide 0.05% [Lidex 0.05% Cream (RX)] 1 romeo TP BID PRN 08/03/17 [Last Taken Unknown] Fluticasone Nasal [Flonase Nasal [place] (RX)] 2 sprays NASAL DAILY PRN 08/03/17 [ Last Taken Unknown] Levothyroxine [Synthroid 50 mcg (*)] 50 mcg PO DAILY06 08/03/17 [Last Taken 1 Week Ago ~07/27/17] Lisinopril/Hctz 20/12.5MG [Zestoretic/Prinzide 20/12.5MG (*)] 1 ea PO DAILY PRN 08/03/17 [Last Taken Unknown] Naproxen 500 mg PO BID PRN 08/03/17 [Last Taken Unknown] Tamsulosin HCl [Flomax 0.4 MG (*)] 0.4 mg PO HS 08/03/17 [Last Taken 08/02/17] hydrOXYzine HCL [Vistaril] 50 mg PO Q6HRS PRN 08/03/17 [Last Taken Unknown] oxyCODONE IR [Oxycodone Ir (*)] 30 mg PO 5XD 08/03/17 [Last Taken 08/03/17] traZODone [traZODONE 100MG (*)] 100 - 200 mg PO HS PRN 08/03/17 [Last Taken ] - NPO status NPO Since - Liquids (Date): 08/09/17 NPO Since - Liquids (Time): 00:00 NPO Since - Solids (Date): 08/08/17 NPO Since - Solids (Time): 18:00 - Smoking Hx Smoking Status: Current every day smoker - Alcohol Use Alcohol Use: None ANE Labs/Vital Signs - Labs Result Diagrams: 08/09/17 05:00 08/09/17 05:00 - Vital Signs Blood Pressure: 121/75 Heart Rate: 93 Respiratory Rate: 20 O2 Sat (%): 98 Height: 180.34 cm Weight: 47.8 kg ANE Physical Exam - Airway Neck exam: decreased ROM Mallampati Score: Class 3 Mouth exam: poor dentition - Pulmonary Pulmonary: no respiratory distress - Cardiovascular Cardiovascular: regular rate and rhythym - ASA Status ASA Status: III ANE Anesthesia Plan Total IV Anesthesia: Yes
[2017-08-09] MEDS ORDERED: LIDOCAINE 2% 100 MG/5 ML SYR ONE (08:05)
[2017-08-09] MEDS ORDERED: PROPOFOL/EMULSION 500 MG/50 ML BOTTLE IV ONE (08:05)
--- NOTE | 2017-08-09 08:11 | SOAPPROG ---
SOAP Progress Note Assessment/Plan: Assessment/Plan: 71 Y M FTT, PE, reduced EF 42%, 30 lbs weight loss, thrombocytopenia, s/p cholecystectomy c CBD exploration for choledocholithiasis , s/p washout out of retroperitoneal abscess. Seen and examined in preop prior to EGD with Dr. Park. Ok to start AC after EGD. Continue abx, t-tube, BRODY drain. E coli and enterococcus on cultures. 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 Will d/w Dr. Jiang and await EGD results. S: feels "ok". no real complaints, but appears fatigued--verbal, but minimally so. O: alert, nad, thin mmm, no jaundice ctab cor rrr abd soft, t tube bilious, BRODY drain brown/green 08/09/17 08:09 Objective: Vital Signs Temp Pulse Resp BP Pulse Ox 36.6 C 93 20 121/75 H 98 08/09/17 07:52 08/09/17 08:03 08/09/17 08:03 08/09/17 08:03 08/09/17 08:03 Microbiology 08/03/17 14:45 Blood Culture - Final Blood 08/04/17 18:30 Gram Stain - Final Peritoneal Fluid - Eswab Laboratory Results 08/09/17 05:00 08/09/17 05:00 08/08/17 08/09/17 08/10/17 05:59 05:59 05:59 Intake Total 2402 2509 Output Total 1115 1990 60 Balance 1287 519 -60 PT 16.7 SEC (12.0-15.0) H 08/05/17 04:55 INR 1.33 (0.83-1.16) H 08/05/17 04:55 ICD10 Worksheet Patient Problems: Problems Problem Status Onset COPD (chronic obstructive pulmonary disease) Acute Dehydration Acute Failure to thrive in adult Acute
--- NOTE | 2017-08-09 08:30 | GIREPORT ---
[facility] - Endoscopy Department Patient Name: Juan Carlos Darden Procedure Date: 08/09/2017 8:09 AM Patient Type: Inpatient Attending MD/ ER Physician: Danie Park MD Procedure: Upper GI endoscopy Indications: Epigastric abdominal pain, Retroperitoneal abcess, suspect chronic DU w ith prior perforation. Providers: Danie Park MD Referring MD: Junior Jiang Medicines: General Anesthesia Complications: No immediate complications. Description of Procedure: After obtaining informed consent, the endoscope was passed under direct vision. Throughout the procedure, the patient's blood pressure, pulse, and oxygen saturations were monitored continuously. The Endoscope was intro duced through the mouth, and advanced to the second part of duodenum. The [facility] GI endoscopy was accomplished without difficulty. The patient tolerated th e procedure well. Findings: The examined esophagus was normal. Diffuse moderate inflammation characterized by congestion (edema) and erythema was found in the gastric antrum. Biopsies were taken with a co ld forceps for histology. A deformity was found in the gastric antrum. One non-bleeding cratered duodenal ulcer with pigmented material was fo und in the duodenal bulb. The lesion was 3 mm in largest dimension. The second portion of the duodenum was normal. Estimated Blood Loss: Estimated blood loss: none. Post Op Diagnosis: - Normal esophagus. - Gastritis. Biopsied. - Acquired deformity in the gastric antrum. - One non-bleeding duodenal ulcer with pigmented material. - Normal second portion of the duodenum. Recommendation: - Await pathology results. - Resume regular diet. - Use Protonix (pantoprazole) 40 mg PO BID. - Thank you for allowing me to participate in the care of your patient. Attending Participation: I personally performed the entire procedure. Danie Park MD Danie Park MD 08/09/2017 8:29:24 AM This report has been signed electronicallyStjim Park MD Number of Addenda: 0 Note Initiated On: 08/09/2017 8:09 AM [email or web address]
[2017-08-09] MEDS ORDERED: NALOXONE HCL 0.4 MG/ML INJ IVP PRN (08:32)
--- NOTE | 2017-08-09 08:33 | POSTANESTH ---
Post Anesthetic Evaluation Cardiovascular Status: Similar to Pre-Op Cond Respiratory Status: Similar to Pre-op Cond. Level of Consciousness/Mental Status: Mildly Sleepy, Arousable Pain Control: Adequate, Prn Tx Ordered Nausea/Vomiting Control: Adequate, Prn Tx Ordered Complications Possibly Related to Anesthesia: None Noted
--- NOTE | 2017-08-09 09:16 | PCMIDPN ---
Assessment/Plan: # Retroperitoneal abscess w large cd stone and cholelithiasis s/p cholecystectomy and drainage 08/18/17: cx showing guan[place]ito, e coli, enterococcus. WBC up a bit today, one low temp - but may be related to surgery yesterday. Now with DU, may be source of retroperitoneal abscess as GB did not seem to be source. --add micafungin today with new culture results. --add on sensi for guanakito --continue to monitor wbc # Confusion: concern that due to FQ, levoflox stopped 3 days ago, seems back to baseline now # Thrombocytopenia: worsening, could be related to infection. Imipenem new abx , so not likely cause. Off vancomycin now # Thrush: starting marguerite as above meds, Abx #5 imipenem 400mg IV q6h prior: Levoflox -> ceftriaxone, flagyl, and vancomycin Microbiology 08/04/17 18:30 Peritoneal Fluid - Eswab Fungal Culture - Preliminary Yeast Species 08/04/17 18:30 Peritoneal Fluid - Eswab Escherichia Coli Enterococcus Faecalis Subjective: states is abdominal pain is mild Objective: Vital Signs Temp Pulse Resp BP Pulse Ox 37.2 C 88 21 H 106/60 99 08/09/17 09:10 08/09/17 09:10 08/09/17 09:10 08/09/17 09:10 08/09/17 09:10 Microbiology 08/03/17 14:45 Blood Culture - Final Blood 08/04/17 18:30 Gram Stain - Final Peritoneal Fluid - Eswab Laboratory Results 08/09/17 05:00 08/09/17 05:00 08/08/17 08/09/17 08/10/17 05:59 05:59 05:59 Intake Total 2402 2509 250 Output Total 1115 1990 160 Balance 1287 519 90 - Physical Exam General Appearance: alert, cachetic, other (chronic ill appearance) EENT: thrush Respiratory: other (decreased bs throughout), No accessory muscle use, No crackles, No wheezing Cardiac/Chest: regular rate, rhythm Extremities: pedal edema (mild diffuse edema overlying muscle wasting) Abdomen: non-tender, soft, distended (mild), other (biliary drain and BRODY drain with cloudy fluid) Male Genitalia: daley Skin: pallor, No rash Neuro/Psych: alert, depressed affect - Line/s RUE PICC Lines: No drainage, No erythema ICD10 Worksheet Patient Problems: Problems Problem Status Onset COPD (chronic obstructive pulmonary disease) Acute Dehydration Acute Failure to thrive in adult Acute
[2017-08-09] MEDS: PANTOPRAZOLE SODIUM 40 MG VIAL IVP SCH (09:17)
[2017-08-09] MEDS: MICAFUNGIN NA 100 MG in NS 100 ML IV SCH (10:04)
[2017-08-09] MEDS ORDERED: POTASSIUM Cl (KCl) 50 ML IV ONE (10:08)
[2017-08-09] MEDS ORDERED: POTASSIUM CL 20 MEQ TAB PO ONE ×2 (10:30→13:30)
--- NOTE | 2017-08-09 12:19 | PDINTPN ---
Harvesting Supervisor Progress Note Assessment/Plan: Assessment: * Retroperitoneal abscess-antibiotics per Infectious Disease * Chronic obstructive pulmonary disease -continue frequent nebs * Acute on chronic respiratory failure-appears stable -wean FiO2 as tolerated * Duodenal ulcer-found on endoscopy yesterday. Likely cause of retroperitoneal abscess * Severe protein malnutrition * Small Subsegmental pulmonary embolus-very small in likely not causing dyspnea or hypoxemia -hold anticoagulation for now * Hypotension * Hypothyroidism Subjective: Resting comfortably. Objective: Vital Signs Temp Pulse Resp BP Pulse Ox 36.8 C 100 23 H 123/82 H 96 08/09/17 12:06 08/09/17 12:06 08/09/17 12:06 08/09/17 12:06 08/09/17 12:06 Microbiology 08/03/17 14:45 Blood Culture - Final Blood 08/04/17 18:30 Gram Stain - Final Peritoneal Fluid - Eswab Laboratory Results 08/09/17 05:00 08/09/17 05:00 08/08/17 08/09/17 08/10/17 05:59 05:59 05:59 Intake Total 2402 2509 250 Output Total 1115 1990 160 Balance 1287 519 90 PT 16.7 SEC (12.0-15.0) H 08/05/17 04:55 INR 1.33 (0.83-1.16) H 08/05/17 04:55 - Time Spent With Patient Time Spent With Patient: 25 min of time spent with patient, over 1/2 involved with coordination of care or counseling Physical Exam - Physical Exam General Appearance: alert, no apparent distress EENT: PERRL/EOMI Neck: non-tender, full range of motion, supple, normal inspection Respiratory: prolonged expiration, No respiratory distress, No wheezing Cardiac/Chest: normal peripheral pulses, regular rate, rhythm, systolic murmur Peripheral Pulses: 2+: carotid (R), carotid (L), femoral (R), femoral (L), dorsalis-pedis (R), dorsalis-pedis (L) Abdomen: soft Male Genitalia: deferred Rectal: deferred Skin: normal color, warm/dry Extremities: normal range of motion, non-tender, normal inspection, normal capillary refill Neuro/Psych: alert ICD10 Worksheet Patient Problems: Problems Problem Status Onset COPD (chronic obstructive pulmonary disease) Acute Dehydration Acute Failure to thrive in adult Acute
[2017-08-09] MEDS: D5W NS 1,000 ML IV SCH (12:20)
[2017-08-09] MEDS: oxyCODONE IR 5 MG TAB PO PRN ×2 (13:24→14:10)
--- NOTE | 2017-08-09 16:50 | HOSPPROG ---
Hospitalist Progress Note Assessment/Plan: 71 yo male with h/o COPD admitted with abdominal pain s/p surgery for retroperitoneal abscess, developed increased O2 requirement and tachycardia overnight, ?increased abdominal pain vs aspiration vs PE, transferred to SDU. # Retroperitoneal abscess thought 2/2 duodenal ulcer s/p ex lap with I&D of abscess and removal of CBD stone - POD #5. E coli and Enterococcus on intra- operative Cx. BCx's ngtd. - cont Imipenem per ID - EGD today per GI, duodenal ulcer likely source of abscess - pathology negative on gall bladder and retroperitoneal lymph node specimen # Duodenal ulcer - BID PPI # Severe protein calorie malnutrition - BMI 14 - pt reports 2/2 neglecting food , possibly due to chronic ulcer. Also consider malignancy or pulmonary cachexia. - no malignancy on surgical pathology or CT chest/abd/pelvis - dietary consult once taking better po # Acute / ?chronic PE - holding heparin for plts 24K. Reviewed CT with pulm who notes with small volume, likely doesn't warrant anticoagulation. - LE u/s neg for DVT - not a candidate for anticoagulation currently with plts 24K # Acute vs Chronic hypoxemic respiratory failure 2/2 chronic HF and COPD +poss contribution from PE - ECHO (reviewed) reduced systolic function with elevated BNP and peripheral edema. Personally reviewed chest CT, note appearance of bullous emphysema. - speech eval for possible aspiration - will likely need gentle diuresis when tolerable - cont duonebs for COPD, likely d/c home with spiriva, albuterol +/- inhaled steroid # Elevated troponin - with reduced apical wall motion on ECHO, trop peaked at 0.8, down this am to 0.5 - cardiology following, plan for inpt risk stratification once better recovered from surgery and acute infectious issues - no indication for cath per Dr. Garcia this am # Thrombocytopenia - >100K --> 24K. Possibly 2/2 acute illness. - HIT Ab pending - holding ASA, anticoagulation - cont to monitor # Hypotension - SBP 60's at presentation - suspect multifactorial from hypovolemia and acute infection, resolved - cont IVF until taking better po # hypothyroidism - cont synthroid # Hypovolemic Hyponatremia - normalized with IVF's, continue # Diet - cardiac # proph - holding heparin with low platelets, cont SCD's # dispo- cont inpt, ADD uncertain Subjective: Pt sleepy this am after EGD. Denies pain. No CP or SOB. Poor appetite. Seems depressed. Objective: Vital Signs Temp Pulse Resp BP Pulse Ox 36.8 C 85 99 H 123/82 H 96 08/09/17 12:06 08/09/17 16:12 08/09/17 16:12 08/09/17 12:06 08/09/17 12:06 Microbiology 08/04/17 18:30 Gram Stain - Final Peritoneal Fluid - Eswab 08/03/17 14:45 Blood Culture - Final Blood Laboratory Results 08/09/17 05:00 08/09/17 05:00 08/08/17 08/09/17 08/10/17 05:59 05:59 05:59 Intake Total 2402 2509 250 Output Total 1115 1990 160 Balance 1287 519 90 PT 16.7 SEC (12.0-15.0) H 08/05/17 04:55 INR 1.33 (0.83-1.16) H 08/05/17 04:55 - Physical Exam Constitutional: chronically ill appearing, cachectic Eyes: PERRL Ears, Nose, Mouth, Throat: moist mucous membranes Cardiovascular: regular rate and rhythym Respiratory: no respiratory distress, inspiratory crackles Gastrointestinal: normoactive bowel sounds, soft, non-tender abdomen, other (BRODY drain full, biliary drain functioning) Skin: warm Musculoskeletal: generalized weakness Neurologic: AAOx3 Psychiatric: depressed ICD10 Worksheet Patient Problems: Problems Problem Status Onset COPD (chronic obstructive pulmonary disease) Acute Dehydration Acute Failure to thrive in adult Acute
[2017-08-09] MEDS ORDERED: POTASSIUM CL 10 MEQ TAB PO ONE (20:19)
[2017-08-09] MEDS: PANTOPRAZOLE SODIUM 40 MG TAB PO SCH (20:28)
[2017-08-09] MEDS: NICOTINE 21 MG/24 HR PATCH TD SCH (20:29)
[2017-08-10] MEDS: D5W NS 1,000 ML IV SCH ×2 (01:02→14:55)
[2017-08-10] MEDS: CILASTATIN SODIUM IV SCH ×3 (05:20→18:02)
[2017-08-10] MEDS: IMIPENEM IV SCH ×3 (05:20→18:02)
[2017-08-10] MEDS: NS IV SCH ×3 (05:20→18:02)
[2017-08-10] MEDS: LEVOTHYROXINE 50 MCG TAB PO SCH (05:21)
[2017-08-10] MEDS: oxyCODONE IR 5 MG TAB PO PRN (05:27)
[2017-08-10] MEDS: IPRATROPIUM/ALBUTEROL 3 ML DEYVIAL IH SCH ×4 (05:42→20:34)
[2017-08-10 06:13] LABS: PLATELET COUNT 26 10^3/uL (150-400)
--- NOTE | 2017-08-10 07:09 | PDCARPN ---
Cardiology Progress Note Chief Complaint: abd pain Assessment/Plan: Assessment: s/p abd surgery Reduced EF PEs Plan: 08/07/17 08:53 Stable CV status today Re-start AC tx when cleared by surgery Continue to monitor H/H 08/08/17 06:46 transferred to ICU multiple ongoing issues Increased HR--? infection vs pain Continue per CC/surgery supportive CV care No indication for cath at this time H/H and plt count still trending low 08/08/17 06:48 08/09/17 06:54 Lethargic Endoscopy planned for today Patient cleared from CV perspective as need for procedure outweighs CV risks Continue ICU support Multiple ongoing issues prognosis guarded 08/10/17 07:08 More alert this AM CV status stable Continue supportive care Plts/Hgb still low--continue to closely monitor Subjective: no active complaints Reviewed/Discussed With: multidisciplinary team Time Spent with Patient: greater than 25 minutes Time Spent with Patient: Greater than 25 minutes spent on this patients care, greater than 50% of time spent counseling, educating, and coordinating care regarding the above mentioned plan. Objective: Vital Signs (8 Hrs) Temp Pulse Resp BP Pulse Ox 08/10/17 05:42 85 18 08/10/17 04:00 36.9 C 82 17 125/90 H 97 08/10/17 00:00 36.8 C 87 21 H 124/75 H 94 Intake/Output (24 Hrs) 08/09/17 08/10/17 08/11/17 05:59 05:59 05:59 Intake Total 2509 3000 Output Total 19895 Balance 519 715 Intake: Oral (ml) 350 800 IV Intake (ml) 1520 IV Infused (ml) 2159 680 D5w Ns 1,000 ml @ 100 mls 1895 480 /hr IV CONT DUY Rx#: [id number] Imipenem/Cilastatin 100 200 Sodium 400 mg In Ns 100 ml @ 100 mls/hr IV Q6 DUY Rx#:[id number] POTASSIUM Cl (KCl) 50 ml 164 @ 50 mls/hr IV Q1H DUY Rx #:[id number] Output: Urine (ml) 650 700 Catheter 650 700 Estimated Blood Loss (ml) 0 BRODY Drain Output (ml) 1170 1335 Right Abdomen Son 1170 1335 [place] T-Tube Drain Output (ml) 170 250 Right Abdomen T-Tube 170 250 Other: Weight 49.2 kg 49.2 kg Number of Stools Catheter 1 1 Result Diagrams: 08/10/17 05:15 08/10/17 05:15 Cardiac Labs: Cardiac Lab Results (72 Hrs) 08/09/17 08/08/17 05:00 01:30 Troponin I 0.589 H 0.843 H - Physical Exam Constitutional: no apparent distress Eyes: PERRL Ears, Nose, Mouth, Throat: moist mucous membranes Cardiovascular: regular rate and rhythm Peripheral Pulses: 1+: femoral (R), femoral (L) Respiratory: no crackles Gastrointestinal: normoactive bowel sounds Genitourinary: flank pain Skin: no rashes Musculoskeletal: no muscular tenderness Psychiatric: cooperative ICD10 Worksheet Patient Problems: Problems Problem Status Onset COPD (chronic obstructive pulmonary disease) Acute Dehydration Acute Failure to thrive in adult Acute
--- NOTE | 2017-08-10 09:04 | SOAPPROG ---
SOAP Progress Note Assessment/Plan: Assessment/Plan: 71 Y M FTT, PE, reduced EF 42%, 30 lbs weight loss, thrombocytopenia, s/p cholecystectomy c CBD exploration for choledocholithiasis , s/p washout out of retroperitoneal abscess. s/p EGD with findings of DU. DU explains retroperitoneal abscess. It is "walled off" now. No further surgical or procedural intervention needed at this time. On BID protonix. Continue BRODY and Ttube drains. BRODY drainage more serous now. On a regular diet. VTE tx/ppx held 2/2 thrombocytopenia. Appreciate IM, cards, ID, and second facing baster input. Will d/w Dr. Jiang. S: expresses much gratitude for all the care he has received. feeling a little stronger. motivated to heal. O: alert, nad, cachectic. mmm, pale, no jaundice ctab cor rrr abd soft, t tube bilious; BRODY drain serous, slight cloudy character 08/10/17 09:00 Objective: Vital Signs Temp Pulse Resp BP Pulse Ox 36.8 C 95 27 H 121/76 H 98 08/10/17 08:00 08/10/17 08:00 08/10/17 08:00 08/10/17 08:00 08/10/17 08:00 Microbiology 08/04/17 18:30 Gram Stain - Final Peritoneal Fluid - Eswab 08/03/17 14:45 Blood Culture - Final Blood Laboratory Results 08/10/17 05:15 08/10/17 05:15 08/09/17 08/10/17 08/11/17 05:59 05:59 05:59 Intake Total 2509 3000 Output Total 1989 2284 Balance 519 715 PT 16.7 SEC (12.0-15.0) H 08/05/17 04:55 INR 1.33 (0.83-1.16) H 08/05/17 04:55 ICD10 Worksheet Patient Problems: Problems Problem Status Onset COPD (chronic obstructive pulmonary disease) Acute Dehydration Acute Failure to thrive in adult Acute
--- NOTE | 2017-08-10 09:30 | PDINTPN ---
Restaurant District Manager Progress Note Assessment/Plan: Assessment: * Retroperitoneal abscess-antibiotics per Infectious Disease * Chronic obstructive pulmonary disease -continue frequent nebs * Acute on chronic respiratory failure-appears stable -wean FiO2 as tolerated * Duodenal ulcer-found on endoscopy. Likely cause of retroperitoneal abscess * Severe protein malnutrition -speech evaluating * Small Subsegmental pulmonary embolus-very small in likely not causing dyspnea or hypoxemia -hold anticoagulation for now * Hypotension * Hypothyroidism Overall improved Subjective: Sitting up. Comfortable. He no current pain. Objective: Vital Signs Temp Pulse Resp BP Pulse Ox 36.8 C 95 27 H 121/76 H 98 08/10/17 08:00 08/10/17 08:00 08/10/17 08:00 08/10/17 08:00 08/10/17 08:00 Microbiology 08/04/17 18:30 Gram Stain - Final Peritoneal Fluid - Eswab 08/03/17 14:45 Blood Culture - Final Blood Laboratory Results 08/10/17 05:15 08/10/17 05:15 08/09/17 08/10/17 08/11/17 05:59 05:59 05:59 Intake Total 2509 3000 Output Total 1989 2285 Balance 519 715 PT 16.7 SEC (12.0-15.0) H 08/05/17 04:55 INR 1.33 (0.83-1.16) H 08/05/17 04:55 Laboratory Results 08/10/17 05:15 08/10/17 05:15 08/04/17 18:30 Gram Stain - Final Peritoneal Fluid - Eswab Anaerobic Culture - Preliminary Escherichia Coli Enterococcus Faecalis 08/04/17 18:30 Fungal Culture - Preliminary Peritoneal Fluid - Eswab Ana Albicans Presumptive - Time Spent With Patient Time Spent With Patient: 25 min of time spent with patient, over 1/2 involved with coordination of care or counseling Physical Exam - Physical Exam General Appearance: alert, no apparent distress EENT: PERRL/EOMI Neck: non-tender Respiratory: prolonged expiration, No wheezing Cardiac/Chest: normal peripheral pulses, regular rate, rhythm, systolic murmur Peripheral Pulses: 2+: carotid (R), carotid (L), femoral (R), femoral (L), dorsalis-pedis (R), dorsalis-pedis (L) Abdomen: normal bowel sounds, non-tender, soft Male Genitalia: deferred Rectal: deferred Extremities: normal range of motion, non-tender, normal inspection, normal capillary refill Neuro/Psych: alert ICD10 Worksheet Patient Problems: Problems Problem Status Onset COPD (chronic obstructive pulmonary disease) Acute Dehydration Acute Failure to thrive in adult Acute
[2017-08-10] MEDS ORDERED: POTASSIUM CL 10 MEQ TAB PO ONE ×2 (09:59→21:05)
[2017-08-10] MEDS: MICAFUNGIN NA 100 MG in NS 100 ML IV SCH (10:58)
[2017-08-10] MEDS: PANTOPRAZOLE SODIUM 40 MG TAB PO SCH ×2 (10:59→21:07)
--- NOTE | 2017-08-10 12:08 | ASMTCMCOM ---
CM Note CM Note Notes: Patient's daughter Ines called from [place] ([phone]) to inquire about d/c plan and what she could do to help. I explained that Case Management would facilitate the transfer and that she and her family could focus on supporting patient when he is discharged from SNF. She is already working with an advocate from the [facility] in [place]. I explained that the SNF would also help with home d/c needs. Since [facility] not have a bed, family would like [facility]. They are reviewing patient now. Case Management will follow. Date Signed: 08/10/2017 12:07 PM Electronically Signed By:Merna Chowdhury RN
--- NOTE | 2017-08-10 16:21 | HOSPPROG ---
Hospitalist Progress Note Assessment/Plan: DIAGNOSES: # retroperitoneal abscess, likely due to perforated duodenal ulcer, status post washout drainage during still in place * Overall improving after surgery needing ongoing antibiotic * ? If will need repeat imaging, will review with surgery and Infectious Disease # duodenal ulcer * Proton pump inhibitor # severe thrombocytopenia uncertain etiology/normocytic anemia present at admission, uncertain etiology * Not currently at severe bleeding risk but significant bleeding risk and currently interfering with treatment that would be given for PE, and could interfere with most desired therapies if he actually has coronary disease, see below * Heparin antibodies negative, etiology uncertain, question if due to antibiotic or other medication * Hematology health and safety consultant would be helpful # acute pulmonary emboli * Small volume without hemodynamic compromise or respiratory compromise at present * Currently not treated in part due to his severe thrombocytopenia # severe protein calorie malnutrition, weight loss * Beginning to eat now and will need to follow closely * Did have poor intake due to poor appetite at home, question if some underlying illness that was causing this # failure to thrive at home, deconditioning and generalized weakness # rib fractures without obvious history of injury, suspect osteoporosis is present * At some point in near future with primary care physician should address management of this # hyponatremia due to poor intake, resolved # elevation of cardiac troponins to 0.8 with apical hypokinesis, CAD suspected * Further assessment delayed due to his other acute illnesses and thrombocytopenia * Plan further risk stratification once he is stable enough Seen by me today on hospitalist rounds as well as multidisciplinary ICU rounds Reviewed in detail with Dr. Jorge Schmidt SUBJECTIVE: States he feels better overall with a minimal abdominal pain, has started to eat States he has been up and standing on his feet taking some steps Denies chest pain or shortness of breath Denies bleeding, fever OBJECTIVE Vitals reviewed: Some tachypnea, otherwise stable vitals without fever Counter Sales Representative, my review: Sinus Exam: alert oriented looks quite tired and fatigued, cachectic skin warm dry color ok resps mildly labored in bed on oxygen lungs diminished but otherwise clear BSs heart regular abd soft nondistended nontender, bowel sounds present limbs warm, no edema iv site ok Laboratory data: White blood cell count a little bit better hemoglobins minimally decreased today at 8.7 from yesterday, platelets remained very low at 26,000 Potassium a bit low at 3.2 today, glucose okay a bit hyperchloremic Heparin antibodies have come back negative Radiology: Chest x-ray two view done this morning, I reviewed the images: There is persistent bibasilar infiltrate and bilateral pleural effusions, severe emphysematous change, not much change from the last chest x-ray perhaps slightly more fluid Objective: Vital Signs Temp Pulse Resp BP Pulse Ox 36.6 C 91 29 H 122/80 H 96 08/10/17 12:00 08/10/17 12:00 08/10/17 12:00 08/10/17 12:00 08/10/17 12:00 Microbiology 08/04/17 18:30 Gram Stain - Final Peritoneal Fluid - Eswab Laboratory Results 08/10/17 05:15 08/10/17 05:15 08/09/17 08/10/17 08/11/17 06:59 06:59 06:59 Intake Total 2509 3000 500 Output Total 1989 2285 350 Balance 519 715 150 PT 16.7 SEC (12.0-15.0) H 08/05/17 04:55 INR 1.33 (0.83-1.16) H 08/05/17 04:55 - Time Spent With Patient Time Spent with Patient: greater than 35 minutes Time Spent with Patient: Greater than 35 minutes spent on this patients care, greater than 50% of time spent counseling, educating, and coordinating care regarding the above mentioned plan. ICD10 Worksheet Patient Problems: Problems Problem Status Onset COPD (chronic obstructive pulmonary disease) Acute Dehydration Acute Failure to thrive in adult Acute
--- NOTE | 2017-08-10 18:14 | PCMIDPN ---
Assessment/Plan: # Retroperitoneal abscess w large cd stone and cholelithiasis s/p cholecystectomy and drainage 08/18/17: cx showing [place], e coli, enterococcus. Abscess thought due to slow leak from DU. BRODY drain putting out large amount of fluid, 1300 cc last 24 hr likely consistent with underlying ascites --continue micafungin and imipenem for coverage of isolated organisms # Thrombocytopenia: Stable, not likely attributable to antibiotics # Thrush: Improved today meds, Abx #6 imipenem 400mg IV q6h Micafungin 100 mg IV daily, # 2 prior: Levoflox -> ceftriaxone, flagyl, and vancomycin Microbiology 08/04/17 18:30 Peritoneal Fluid - Yeast Species 08/04/17 18:30 Peritoneal Fluid - Eswab Escherichia Coli, Enterococcus Faecalis Subjective: Patient reports minimal pain No other complaints Objective: Vital Signs Temp Pulse Resp BP Pulse Ox 36.4 C 94 28 H 117/73 100 08/10/17 16:00 08/10/17 16:00 08/10/17 16:00 08/10/17 16:00 08/10/17 16:00 Microbiology 08/04/17 18:30 Gram Stain - Final Peritoneal Fluid - Eswab Laboratory Results 08/10/17 05:15 08/10/17 05:15 08/09/17 08/10/17 08/11/17 05:59 05:59 05:59 Intake Total 2509 3000 500 Output Total 1989 2285 1125 Balance 519 065 -484 - Physical Exam General Appearance: alert, no apparent distress, cachetic EENT: thrush, poor dentition Respiratory: other (Decreased breath sounds in the bases), No accessory muscle use Neck: supple Cardiac/Chest: regular rate, rhythm Extremities: pedal edema Abdomen: non-tender, soft, other (Large BRODY drain with serosanguineous fluid; gallbladder drain with bilious fluid; decreased bowel sounds) Male Genitalia: daley Skin: pallor, No rash Neuro/Psych: alert, oriented x 3, depressed affect - Line/s RUE PICC Lines: No drainage, No erythema - Time Spent With Patient Time Spent with Patient: greater than 35 minutes Time Spent with Patient: Greater than 35 minutes spent on this patients care, greater than 50% of time spent counseling, educating, and coordinating care regarding the above mentioned plan. ICD10 Worksheet Patient Problems: Problems Problem Status Onset COPD (chronic obstructive pulmonary disease) Acute Dehydration Acute Failure to thrive in adult Acute
[2017-08-10] MEDS: NICOTINE 21 MG/24 HR PATCH TD SCH (21:07)
[2017-08-11] MEDS: CILASTATIN SODIUM IV SCH ×4 (00:50→17:45)
[2017-08-11] MEDS: NS IV SCH ×4 (00:50→17:45)
[2017-08-11] MEDS: IMIPENEM IV SCH ×4 (00:50→17:45)
[2017-08-11] MEDS: D5W NS 1,000 ML IV SCH (02:33)
[2017-08-11 05:20] LABS: PLATELET COUNT 21 10^3/uL (150-400)
[2017-08-11] MEDS: IPRATROPIUM/ALBUTEROL 3 ML DEYVIAL IH SCH ×4 (05:46→20:18)
[2017-08-11] MEDS: LEVOTHYROXINE 50 MCG TAB PO SCH (06:53)
--- NOTE | 2017-08-11 07:03 | PDCARPN ---
Cardiology Progress Note Chief Complaint: abd pain Assessment/Plan: Assessment: s/p abd surgery Reduced EF PEs Plan: 08/07/17 08:53 Stable CV status today Re-start AC tx when cleared by surgery Continue to monitor H/H 08/08/17 06:46 transferred to ICU multiple ongoing issues Increased HR--? infection vs pain Continue per CC/surgery supportive CV care No indication for cath at this time H/H and plt count still trending low 08/08/17 06:48 08/09/17 06:54 Lethargic Endoscopy planned for today Patient cleared from CV perspective as need for procedure outweighs CV risks Continue ICU support Multiple ongoing issues prognosis guarded 08/10/17 07:08 More alert this AM CV status stable Continue supportive care Plts/Hgb still low--continue to closely monitor 08/11/17 07:00 slightly more alert CV status stable Pt has multiple ongoing issues related to abd/infectious pathologies Will continue with conservative CV management as pt does not have any indication for invasive procedure (i.e. cath) and given low plts would be contraindicated for any anti-platelet medications Will follow as needed, please call with any questions Subjective: more alert Reviewed/Discussed With: multidisciplinary team Time Spent with Patient: greater than 25 minutes Time Spent with Patient: Greater than 25 minutes spent on this patients care, greater than 50% of time spent counseling, educating, and coordinating care regarding the above mentioned plan. Objective: Vital Signs (8 Hrs) Temp Pulse Resp BP Pulse Ox 08/11/17 05:46 85 26 H 100 08/11/17 04:00 36.3 C 80 28 H 117/72 100 08/11/17 00:00 35.9 C L 84 20 108/48 L 100 Intake/Output (24 Hrs) 08/10/17 08/11/17 08/12/17 05:59 05:59 05:59 Intake Total 3000 4033 Output Total 2285 2651 Balance 715 1382 Intake: Oral (ml) 800 1900 IV Intake (ml) 1520 IV Infused (ml) 680 2133 D5w Ns 1,000 ml @ 100 mls 480 2033 /hr IV CONT [facility]Y Rx#: [id number] Imipenem/Cilastatin 200 Sodium 400 mg In Ns 100 ml @ 100 mls/hr IV Q6 [facility] Rx#:[id number] Imipenem/Cilastatin 100 Sodium 500 mg In Ns 100 ml @ 100 mls/hr IV Q6 [facility] Rx#:[id number] Output: Urine (ml) 700 475 Catheter 700 475 Liquid Stool (ml) 1 Incontinence 1 Estimated Blood Loss (ml) 0 BRODY Drain Output (ml) 1335 1900 Right Abdomen Son 1335 1900 [place] T-Tube Drain Output (ml) 250 275 Right Abdomen T-Tube 250 275 Other: Weight 49.2 kg 50.9 kg 50.9 kg Number of Stools Catheter 1 1 Result Diagrams: 08/11/17 04:52 08/11/17 04:52 Cardiac Labs: Cardiac Lab Results (72 Hrs) 08/09/17 05:00 Troponin I 0.589 H - Physical Exam Constitutional: no apparent distress Eyes: PERRL Ears, Nose, Mouth, Throat: moist mucous membranes Cardiovascular: regular rate and rhythm Peripheral Pulses: 1+: femoral (R), femoral (L) Respiratory: no crackles Gastrointestinal: normoactive bowel sounds Skin: no rashes Musculoskeletal: no muscular tenderness Lymph, Heme, Immunologic: no lymphadenopathy ICD10 Worksheet Patient Problems: Problems Problem Status Onset COPD (chronic obstructive pulmonary disease) Acute Dehydration Acute Failure to thrive in adult Acute
[2017-08-11] MEDS ORDERED: POTASSIUM CL 10 MEQ TAB PO ONE (08:04)
--- NOTE | 2017-08-11 09:27 | PDINTPN ---
Logistics Associate Progress Note Assessment/Plan: Assessment: * Retroperitoneal abscess-antibiotics per Infectious Disease * Chronic obstructive pulmonary disease -continue frequent nebs * Acute on chronic respiratory failure-appears stable -wean FiO2 as tolerated * Thrombocytopenia * Duodenal ulcer-found on endoscopy. Likely cause of retroperitoneal abscess * Severe protein malnutrition -speech evaluating * Small Subsegmental pulmonary embolus-very small in likely not causing dyspnea or hypoxemia. -hold anticoagulation for now secondary to the cytopenia * Hypotension * Hypothyroidism Overall improved Subjective: Sitting up in bed. Multiple somatic complaints. Breathing easily. Objective: Vital Signs Temp Pulse Resp BP Pulse Ox 36.4 C 94 18 127/81 H 96 08/11/17 07:24 08/11/17 07:24 08/11/17 07:24 08/11/17 07:24 08/11/17 07:24 Microbiology 08/04/17 18:30 Gram Stain - Final Peritoneal Fluid - Eswab Laboratory Results 08/11/17 04:52 08/11/17 04:52 08/10/17 08/11/17 08/12/17 05:59 05:59 05:59 Intake Total 3000 4033 Output Total 2285 2651 Balance 715 1382 PT 16.7 SEC (12.0-15.0) H 08/05/17 04:55 INR 1.33 (0.83-1.16) H 08/05/17 04:55 - Time Spent With Patient Time Spent With Patient: 25 min of time spent with patient, over 1/2 involved with coordination of care or counseling Physical Exam - Physical Exam General Appearance: alert, mild distress EENT: PERRL/EOMI Neck: non-tender, full range of motion, supple, normal inspection Respiratory: crackles (Few), prolonged expiration, No respiratory distress, No wheezing Cardiac/Chest: normal peripheral pulses, regular rate, rhythm, systolic murmur Peripheral Pulses: 2+: carotid (R), carotid (L), femoral (R), femoral (L), dorsalis-pedis (R), dorsalis-pedis (L) Abdomen: normal bowel sounds, non-tender, soft Male Genitalia: deferred Rectal: deferred Skin: normal color, warm/dry Extremities: non-tender Neuro/Psych: alert ICD10 Worksheet Patient Problems: Problems Problem Status Onset COPD (chronic obstructive pulmonary disease) Acute Dehydration Acute Failure to thrive in adult Acute
[2017-08-11] MEDS: PANTOPRAZOLE SODIUM 40 MG TAB PO SCH ×2 (09:56→21:29)
[2017-08-11] MEDS: MICAFUNGIN NA 100 MG in NS 100 ML IV SCH (09:56)
--- NOTE | 2017-08-11 10:15 | HOSPPROG ---
Hospitalist Progress Note Assessment/Plan: DIAGNOSES: # retroperitoneal abscess, likely due to perforated duodenal ulcer, status post washout drainage during still in place * Overall improving after surgery needing ongoing antibiotic * I reviewed with Dr. Kylah Cook, he will need repeat abdominal imaging at some point # duodenal ulcer * Continue Proton pump inhibitor # severe thrombocytopenia uncertain etiology/normocytic anemia present at admission, uncertain etiology * Worse today; platelet transfusion not currently indicated but he is not far from the point where it would be; no current bleeding * Heparin antibodies negative, etiology uncertain, question if due to antibiotic or other medication * Hematology databases computer consultant would be helpful # acute pulmonary emboli * Small volume without hemodynamic compromise or respiratory compromise at present * Currently not treated in part due to his severe thrombocytopenia # severe protein calorie malnutrition, weight loss * appetite and intake are minimal here, so he will not do well without help; will review possible NG or PEG with him * will add multivits (will check some vit levels) * ? If there is underlying illness not yet identified, possibly malignancy or otherwise contributing to this # acute encephalopathy * multifactorial but infection, severity of illness, nutritionl, meds may all be factor * ? if underlying dementia: need to check TSH, B12 RPR # failure to thrive at home, deconditioning and generalized weakness # rib fractures without obvious history of injury, suspect osteoporosis is present * At some point in near future with primary care physician should address management of this # hyponatremia due to poor intake, resolved # elevation of cardiac troponins to 0.8 with apical hypokinesis, CAD suspected * Further assessment delayed due to his other acute illnesses and thrombocytopenia * Plan further risk stratification once he is stable enough Seen by me today on hospitalist rounds as well as multidisciplinary ICU rounds Reviewed in detail with Dr. Jorge Schmidt SUBJECTIVE: Says he feels better but remains extremely weak Actually talking to him he is still confused and incredibly lethargic, I am not even sure how well he is aware of how he feels OBJECTIVE Vitals reviewed: Still with some tachypnea, otherwise stable vitals without fever Disease Management Nurse, my review: Sinus Exam: alert oriented looks extremely weak, very lethargic, cachectic skin warm dry color ok resps remain labored in bed on oxygen lungs diminished but otherwise clear BSs heart regular abd soft nondistended nontender, bowel sounds present, incision looks good limbs warm, no edema iv site ok Laboratory data: Hemoglobin stable remains fairly low Potassium also remaining stable Heparin antibodies have come back negative Objective: Vital Signs Temp Pulse Resp BP Pulse Ox 36.4 C 94 18 127/81 H 96 08/11/17 07:24 08/11/17 07:24 08/11/17 07:24 08/11/17 07:24 08/11/17 07:24 Microbiology 08/04/17 18:30 Gram Stain - Final Peritoneal Fluid - Eswab Laboratory Results 08/11/17 04:52 08/11/17 04:52 08/10/17 08/11/17 08/12/17 06:59 06:59 06:59 Intake Total 3000 4033 Output Total 2285 2651 Balance 715 1382 PT 16.7 SEC (12.0-15.0) H 08/05/17 04:55 INR 1.33 (0.83-1.16) H 08/05/17 04:55 - Time Spent With Patient Time Spent with Patient: greater than 35 minutes Time Spent with Patient: Greater than 35 minutes spent on this patients care, greater than 50% of time spent counseling, educating, and coordinating care regarding the above mentioned plan. ICD10 Worksheet Patient Problems: Problems Problem Status Onset COPD (chronic obstructive pulmonary disease) Acute Dehydration Acute Failure to thrive in adult Acute
--- NOTE | 2017-08-11 10:15 | SOAPPROG ---
SOAP Progress Note Assessment/Plan: Assessment: 71 y/o M s/p laparotomy with drainage of retroperitoneal abscess, cholecystectomy with grams S/p EGD with findings of duodenal ulcer, likely cause of abscess PE thrombocytopenia S: Sitting up in bed. Pain controlled. On regular diet, dysphagia I. O: Alert, cachectic No increased WOB Abdomen soft, t tube with bilious output, BRODY drain with serous output, less purulent appearing today, incision cdi Skin: pale, no jaundice Plan: Continue t tube and BRODY drains for now. No surgical intervention needed for duodenal ulcer. Continue BID protonix. Continue holding heparin due to thrombocytopenia. Speech therapy to evaluate for advancement of diet today. Pt seen and evaluated with Dr. Mccabe. Appreciate medicine, ID and public aid eligibility assistant input. 08/11/17 10:06 Objective: Vital Signs Temp Pulse Resp BP Pulse Ox 36.4 C 94 18 127/81 H 96 08/11/17 07:24 08/11/17 07:24 08/11/17 07:24 08/11/17 07:24 08/11/17 07:24 Microbiology 08/04/17 18:30 Gram Stain - Final Peritoneal Fluid - Eswab Laboratory Results 08/11/17 04:52 08/11/17 04:52 08/10/17 08/11/17 08/12/17 05:59 05:59 05:59 Intake Total 3000 4033 Output Total 2285 2651 Balance 715 1382 PT 16.7 SEC (12.0-15.0) H 08/05/17 04:55 INR 1.33 (0.83-1.16) H 08/05/17 04:55 ICD10 Worksheet Patient Problems: Problems Problem Status Onset COPD (chronic obstructive pulmonary disease) Acute Dehydration Acute Failure to thrive in adult Acute
--- NOTE | 2017-08-11 10:16 | PCMIDPN ---
Assessment/Plan: 1. Status post laparotomy with drainage of retroperitoneal abscess and cholecystectomy felt secondary to common bile duct stone verses leakage from duodenal ulcer: Patient remains on imipenem, which covers all organisms including Enterococcus faecalis. Continue Micafungin. At some point, will need repeat imaging of his abdomen. 2. Thrombocytopenia: Etiology unclear. Agree with hematology consultation. HIV antibody negative. 08/11/17 10:18 Subjective: Very grouchy this morning. Does not want to get out of bed. Still having some abdominal discomfort. Not eating. Objective: Imipenem 500 mg IV q.6 hours (antibiotics total day 7) Micafungin 100 mg IV daily day 3 No fevers Vital Signs Temp Pulse Resp BP Pulse Ox 36.4 C 94 18 127/81 H 96 08/11/17 07:24 08/11/17 07:24 08/11/17 07:24 08/11/17 07:24 08/11/17 07:24 Microbiology 08/04/17 18:30 Gram Stain - Final Peritoneal Fluid - Eswab Laboratory Results 08/11/17 04:52 08/11/17 04:52 08/10/17 08/11/17 08/12/17 05:59 05:59 05:59 Intake Total 3000 4033 Output Total 2285 2651 Balance 715 1382 No new microbiology Path without evidence of malignancy. - Physical Exam General Appearance: cachetic EENT: pharynx normal, No thrush Respiratory: lungs clear Extremities: other (PICC line right upper extremity looks okay) Abdomen: other (Cholecystostomy tube in place draining bilious material. Large BRODY bulb empty now. Abdomen is quiet, mildly tender diffusely.) Skin: other (Bruising on his lower extremities) ICD10 Worksheet Patient Problems: Problems Problem Status Onset COPD (chronic obstructive pulmonary disease) Acute Dehydration Acute Failure to thrive in adult Acute
[2017-08-11] MEDS: oxyCODONE IR 5 MG TAB PO PRN (10:20)
--- NOTE | 2017-08-11 16:17 | GCON ---
[f rep st] CONSULTATION HISTORY OF PRESENT ILLNESS: The patient is a 71-year-old male who was admitted to [facility] on 08/03 with a complaint of back pain and failure to thrive. This has been accompanied by weight loss and increasing weakness. On admission to the hospital, he had a CT scan of the chest, wh ich showed a small volume pulmonary embolism. He was noted to have a leukocytosis with a leftward sh ift and mild thrombocytopenia with a platelet count of around 100,000. Additional imaging of his abd omen showed a retroperitoneal fluid collection around the right kidney. Gas was noted. There was al so a large, 15 mm common bile duct stone. He was taken to surgery, had a washout of the retroperiton eal abscess and exploration of common bile duct. Cultures grew out enterococcus. He had initially b een placed on Zosyn, but was then switched to levofloxacin, vancomycin, and metronidazole. On 08/07, his antibiotics were switched to ceftriaxone. More recently, he has been on imipenem. Endoscopy sh owed a perforated duodenal ulcer, possibly related to the cause of the retroperitoneal abscess. Over the course of his hospital stay, his platelet counts have declined. They were 87 on , 54 on , 32 on 08/08, and more recently have been 21,000. He has had a developing anemia with hematocrits in the 25-26 range, and white counts have remained persistently elevated again with a significant le ftward shift. HIT antibodies have been negative. We were asked to consult regarding his developing thrombocytopenia. Full. PAST MEDICAL HISTORY: Significant for cervical stenosis, COPD, occasional use of oxygen, hypertensio n, hypothyroidism. PAST SURGICAL HISTORY: Include right hernia repair, laminectomy, and diskectomy. Father has had cooper er cancer. MEDICATIONS: On admission, included acyclovir, Fosamax, Synthroid, lisinopril/hydrochlorothiazide, o xycodone, tamsulosin, trazodone. PHYSICAL EXAMINATION: GENERAL: He is a male. He is arousable, but somewhat quiet at this time. He appears somewhat older than his stated age. VITAL SIGNS: Blood pressure currently 92/64, pulse 114 . RESPIRATORY: He has decreased breath sounds. Respirations are a bit labored. HEART: Regular. ABDOMEN: Soft, nontender. BRODY is draining brownish fluid. LABORATORY DATA: Chemistry panel shows a sodium 144, potassium 3.2. B12 is greater than 1000. IMPRESSION: Patient with failure to thrive and discovery of a retroperitoneal abscess, probably rela nydia to a perforated duodenal ulcer. He has developing thrombocytopenia, which I suspect is multifact orial. Certainly, consumption from his ongoing infectious issue is a very realistic possibility. He has been on a multitude of antibiotics, although I note the thrombocytopenia preceded the initiation of antibiotics. Almost all of these have been reported in relatively low frequency to cause thrombo cytopenia. I think it is unlikely he has an underlying bone marrow dyscrasia. We will check a few t ests, including a JAK2 mutation and a FISH test for BCR-ABL. I agree with holding anticoagulation fo r his known pulmonary embolism at this time. If he drops much below 20,000, would consider platelet transfusions given his risk for bleeding. Our service will follow with you. /[id number]/MODL
[2017-08-11] MEDS: MULTIVITAMINS 1 EACH TAB PO SCH (17:46)
[2017-08-11] MEDS ORDERED: NS BOLUS 1000 ML (Wide open) IV ONE (18:00)
[2017-08-11] MEDS: NICOTINE 21 MG/24 HR PATCH TD SCH (21:29)
[2017-08-11] MEDS ORDERED: POTASSIUM Cl (KCl) 50 ML IV ONE (22:26)
[2017-08-12] MEDS: NS IV SCH ×4 (00:13→18:40)
[2017-08-12] MEDS: IMIPENEM IV SCH ×4 (00:13→18:40)
[2017-08-12] MEDS: CILASTATIN SODIUM IV SCH ×4 (00:13→18:40)
[2017-08-12] MEDS: HYDROmorphone HCL/NS 0.5 MG/ML SYR IVP PRN ×2 (01:03→16:00)
[2017-08-12] MEDS: IPRATROPIUM/ALBUTEROL 3 ML DEYVIAL IH SCH (05:04)
[2017-08-12] MEDS ORDERED: POTASSIUM Cl (KCl) 50 ML IV ONE (06:41)
[2017-08-12] MEDS: D5W NS 1,000 ML IV SCH (06:52)
[2017-08-12 08:17] LABS: PLATELET COUNT 30 10^3/uL (150-400)
[2017-08-12] MEDS: PANTOPRAZOLE SODIUM 40 MG TAB PO SCH (09:25)
[2017-08-12] MEDS: MULTIVITAMINS 1 EACH TAB PO SCH (09:26)
[2017-08-12] MEDS: LEVOTHYROXINE 50 MCG TAB PO SCH (09:26)
[2017-08-12] MEDS: MICAFUNGIN NA 100 MG in NS 100 ML IV SCH (09:33)
--- NOTE | 2017-08-12 09:53 | SOAPPROG ---
SOAP Progress Note Assessment/Plan: Assessment: 71 y/o M s/p laparotomy with drainage of retroperitoneal abscess, cholecystectomy with grams S/p EGD with findings of duodenal ulcer, likely cause of abscess PE thrombocytopenia S: Sitting up in bed. Pain controlled. On regular diet, dysphagia I. O: Alert, cachectic No increased WOB Abdomen soft, t tube with bilious output, BRODY drain with serous output, less purulent appearing today, incision cdi Skin: pale, no jaundice Plan: Continue t tube and BRODY drains for now. No surgical intervention needed for duodenal ulcer. Continue BID protonix. Continue holding heparin due to thrombocytopenia. Speech therapy to evaluate for advancement of diet today. Pt seen and evaluated with Dr. Mccabe. Appreciate medicine, ID and bait digger input. 08/11/17 10:06 08/12/17 09:46 Just getting situated back in chair after tiring PT session. Not very interactive. Tolerating T-tube clamp, will increase duration to 4hours clamped , alternating with 2 hours unclamped. Minimal bilious drainage from T-tube. BRODY drain with 175cc out. Drainage is serous in nature. Incision site cdi. Hypoactive BS. DIRECTOR OF SOCIAL SERVICES was unable to perform swallow eval yesterday, plans to try again today. Hematology consulted for thrombocytopenia- doubts bone marrow issue given his continual infectious process. Continue holding heparin for known PE. Objective: Vital Signs Temp Pulse Resp BP Pulse Ox 36.8 C 81 24 H 103/82 H 94 08/12/17 04:00 08/12/17 05:09 08/12/17 05:09 08/12/17 04:00 08/12/17 05:09 Microbiology 08/04/17 18:30 Gram Stain - Final Peritoneal Fluid - Eswab Anaerobic Culture - Final Escherichia Coli Enterococcus Faecalis Laboratory Results 08/12/17 07:50 08/12/17 05:05 08/11/17 08/12/17 08/13/17 05:59 05:59 05:59 Intake Total 4033 3096 Output Total 2651 1160 175 Balance 1382 1936 -175 PT 16.7 SEC (12.0-15.0) H 08/05/17 04:55 INR 1.33 (0.83-1.16) H 08/05/17 04:55 ICD10 Worksheet Patient Problems: Problems Problem Status Onset COPD (chronic obstructive pulmonary disease) Acute Dehydration Acute Failure to thrive in adult Acute
--- NOTE | 2017-08-12 09:56 | PCMIDPN ---
Assessment/Plan: 1. Status post laparotomy with drainage of retroperitoneal abscess and cholecystectomy felt secondary to common bile duct stone verses leakage from duodenal ulcer: Patient remains on imipenem, which covers all organisms including Enterococcus faecalis. Continue Micafungin. At some point, will need repeat imaging of his abdomen. If white blood cell count continues to rise, would consider CT scan tomorrow. 2. Thrombocytopenia: Etiology unclear. Slightly improved today without transfusion. Subjective: Failed his swallow evaluation. Continues to have high output from his BRODY drain. T-Tube is really not putting out anything. Patient is grouchy again this morning, and not saying much. Objective: Imipenem 500 mg IV q.6 hours antibiotics day 8 Micafungin 100 mg IV daily day for No fevers Vital Signs Temp Pulse Resp BP Pulse Ox 36.8 C 81 24 H 103/82 H 94 08/12/17 04:00 08/12/17 05:09 08/12/17 05:09 08/12/17 04:00 08/12/17 05:09 Microbiology 08/04/17 18:30 Gram Stain - Final Peritoneal Fluid - Eswab Anaerobic Culture - Final Escherichia Coli Enterococcus Faecalis Laboratory Results 08/12/17 07:50 08/12/17 05:05 08/11/17 08/12/17 08/13/17 05:59 05:59 05:59 Intake Total 4033 3096 Output Total 2651 1160 175 Balance 1382 1936 -175 No additional microbiology of relevance - Physical Exam General Appearance: cachetic EENT: No thrush Respiratory: other (Poor inspiratory effort. Diminished breath sounds at both bases.) Extremities: other (PICC line right upper extremity looks okay. The patient has anasarca diffusely with pitting edema of his upper extremities) Abdomen: other (Ttube bag is empty. BRODY bulb half full of serosanguineous fluid. ) Skin: other (Some ecchymoses scattered on his lower extremities otherwise no rash) Neuro/Psych: oriented x 3 ICD10 Worksheet Patient Problems: Problems Problem Status Onset COPD (chronic obstructive pulmonary disease) Acute Dehydration Acute Failure to thrive in adult Acute
[2017-08-12] MEDS ORDERED: IPRATROPIUM/ALBUTEROL 3 ML DEYVIAL IH PRN (11:00)
--- NOTE | 2017-08-12 11:45 | HOSPPROG ---
Hospitalist Progress Note Assessment/Plan: DIAGNOSES: # retroperitoneal abscess, likely due to perforated duodenal ulcer, status post washout drainage during still in place * Overall improving postop from a surgical standpoint, needing ongoing antibiotic * he will need repeat abdominal imaging at some point # duodenal ulcer * Continue Proton pump inhibitor # severe thrombocytopenia uncertain etiology/normocytic anemia present at admission, uncertain etiology * Somewhat better today, still no current bleeding no current indication for transfusion * Heparin antibodies negative * Awaiting marrow blood tests ordered by Dr. Flores # acute pulmonary emboli * Small volume without hemodynamic compromise or respiratory compromise at present * Currently not treated in part due to his severe thrombocytopenia # severe protein calorie malnutrition, weight loss and marked cachexia * appetite and intake remained very poor; I have reviewed feeding options with him and he is agreeable to trying nasogastric feedings at this time * Vitamin B12 levels were actually high, vitamin-D levels pending; albumin remains extremely low * multivits ordered * ? If there is underlying illness not yet identified, possibly malignancy or otherwise contributing to this # acute encephalopathy * multifactorial but infection, severity of illness, nutritionl, meds may all be factor * ? if underlying dementia: need to check TSH, B12 RPR # failure to thrive at home, deconditioning and generalized weakness # rib fractures without obvious history of injury, suspect osteoporosis is present * At some point in near future with primary care physician should address management of this # hyponatremia due to poor intake, resolved # elevation of cardiac troponins to 0.8 with apical hypokinesis, CAD suspected * Further assessment delayed due to his other acute illnesses and thrombocytopenia * Plan further risk stratification once he is stable enough Seen by me today on hospitalist rounds as well as multidisciplinary ICU rounds Reviewed in detail with Dr. Jorge Schmidt SUBJECTIVE: Remains very weak, poor appetite No nausea, very little pain No fever symptoms OBJECTIVE Vitals reviewed: All stable overall, still with some mild tachypnea intermittently Senior Electronics Technician, my review: Sinus Exam: He is awake talkative, really only partially oriented, clearly has some memory deficit, still quite lethargic slow to respond and poorly conversant with minimal word output though does answer questions seemingly appropriately as able skin warm dry color ok resps remain mildly labored in bed on oxygen lungs few bibasilar crackles sound like atelectasis heart regular abd soft nondistended nontender, bowel sounds present, incision looks good limbs warm, no edema iv site ok Laboratory data: Platelets up to 30,000 today, remains fairly anemic though stable Potassium in good range Vitamin-D levels, LETHA, and other marrow tests pending Objective: Vital Signs Temp Pulse Resp BP Pulse Ox 36.8 C 81 24 H 103/82 H 94 08/12/17 04:00 08/12/17 05:09 08/12/17 05:09 08/12/17 04:00 08/12/17 05:09 Microbiology 08/04/17 18:30 Gram Stain - Final Peritoneal Fluid - Eswab Anaerobic Culture - Final Escherichia Coli Enterococcus Faecalis Laboratory Results 08/12/17 07:50 08/12/17 05:05 08/11/17 08/12/17 08/13/17 06:59 06:59 06:59 Intake Total 4033 3096 Output Total 2651 1160 175 Balance 1382 1936 -175 PT 16.7 SEC (12.0-15.0) H 08/05/17 04:55 INR 1.33 (0.83-1.16) H 08/05/17 04:55 - Time Spent With Patient Time Spent with Patient: greater than 35 minutes Time Spent with Patient: Greater than 35 minutes spent on this patients care, greater than 50% of time spent counseling, educating, and coordinating care regarding the above mentioned plan. ICD10 Worksheet Patient Problems: Problems Problem Status Onset COPD (chronic obstructive pulmonary disease) Acute Dehydration Acute Failure to thrive in adult Acute
--- NOTE | 2017-08-12 12:16 | ASMTCMCOM ---
CM Note CM Note Notes: Pt's daughter contacted nursing and expressed frustration that she has not recently spoken to a doctor. Pt's doctor has been notified by nurse and has agreed to call daughter. [facility] is continuing to review case. D/C Plan: Probable D/C to SNF. [facility] CM will continue to follow. Date Signed: 08/12/2017 12:15 PM Electronically Signed By:Neena Nash
--- NOTE | 2017-08-12 15:38 | SOAPPROG ---
SOAP Progress Note Assessment/Plan: Assessment: 1. thrombocytopenia, somewhat better today 2. FTT 3.Retroperitoneal abscess 4. Hypothyroidism Plan:Antibiotics, continue drainage, thyroid replacement, follow platelets for now 08/12/17 15:31 Objective: Vital Signs Temp Pulse Resp BP Pulse Ox 97.9 F 106 H 20 110/77 94 08/12/17 11:58 08/12/17 11:58 08/12/17 11:58 08/12/17 11:58 08/12/17 11:58 Microbiology 08/04/17 18:30 Gram Stain - Final Peritoneal Fluid - Eswab Anaerobic Culture - Final Escherichia Coli Enterococcus Faecalis Laboratory Results 08/12/17 07:50 08/12/17 05:05 08/11/17 08/12/17 08/13/17 05:59 05:59 05:59 Intake Total 4033 3096 Output Total 2651 1160 375 Balance 1382 1936 -375 PT 16.7 SEC (12.0-15.0) H 08/05/17 04:55 INR 1.33 (0.83-1.16) H 08/05/17 04:55 ICD10 Worksheet Patient Problems: Problems Problem Status Onset COPD (chronic obstructive pulmonary disease) Acute Dehydration Acute Failure to thrive in adult Acute
--- NOTE | 2017-08-12 16:35 | PDINTPN ---
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 He underwent ex lap with washout and peritoneal cultures grew E. Coli, enterococcus, and Ana; treated with imipenem and micafungin. His hospital course has been complicated by significant thrombocytopenia and is followed by oncology, likely consumptive and not likely a primary bone marrow process. he also had a small PE and anticoagulation has been held given his thrombocytopenia. * Retroperitoneal abscess- improving on antibiotics and followed by ID. * DU on PPI now and stable * COPD on nebs- no change * PE- I agree with holding AC since the PE was small and essentially inconsequential * TCP- platelets rising today Subjective: No events Objective: Vital Signs Temp Pulse Resp BP Pulse Ox 36.6 C 106 H 20 110/77 94 08/12/17 11:58 08/12/17 11:58 08/12/17 11:58 08/12/17 11:58 08/12/17 11:58 Microbiology 08/04/17 18:30 Gram Stain - Final Peritoneal Fluid - Eswab Anaerobic Culture - Final Escherichia Coli Enterococcus Faecalis Laboratory Results 08/12/17 07:50 08/12/17 05:05 08/11/17 08/12/17 08/13/17 05:59 05:59 05:59 Intake Total 4033 3096 Output Total 2651 1160 575 Balance 1382 1936 -575 PT 16.7 SEC (12.0-15.0) H 08/05/17 04:55 INR 1.33 (0.83-1.16) H 08/05/17 04:55 Physical Exam - Physical Exam General Appearance: no apparent distress EENT: PERRL/EOMI Neck: supple Respiratory: lungs clear, normal breath sounds, decreased breath sounds, No respiratory distress, No accessory muscle use Cardiac/Chest: regular rate, rhythm, No edema Abdomen: soft, No distended Skin: normal color, warm/dry, No cyanosis Lymphatic: no adenopathy Extremities: No pedal edema Neuro/Psych: normal mood/affect, oriented x 3, abnormal cerebellar tests ICD10 Worksheet Patient Problems: Problems Problem Status Onset COPD (chronic obstructive pulmonary disease) Acute Dehydration Acute Failure to thrive in adult Acute
[2017-08-12] MEDS: LEVOTHYROXINE 100 MCG/5 ML SYR IVP SCH (19:55)
[2017-08-12] MEDS: NICOTINE 21 MG/24 HR PATCH TD SCH (20:45)
[2017-08-12] MEDS: PANTOPRAZOLE SODIUM 40 MG VIAL IVP SCH (21:30)
[2017-08-13] MEDS: IMIPENEM IV SCH ×4 (00:15→18:51)
[2017-08-13] MEDS: CILASTATIN SODIUM IV SCH ×4 (00:15→18:51)
[2017-08-13] MEDS: NS IV SCH ×4 (00:15→18:51)
[2017-08-13] MEDS: HYDROmorphone HCL/NS 0.5 MG/ML SYR IVP PRN (02:50)
[2017-08-13 06:08] LABS: PLATELET COUNT 21 10^3/uL (150-400)
[2017-08-13] MEDS: POTASSIUM Cl (KCl) 50 ML IV SCH ×2 (07:39→08:44)
[2017-08-13] MEDS: MICAFUNGIN NA 100 MG in NS 100 ML IV SCH (08:46)
[2017-08-13] MEDS: PANTOPRAZOLE SODIUM 40 MG VIAL IVP SCH ×2 (08:46→23:08)
[2017-08-13] MEDS: MULTIVITAMINS 1 EACH TAB PO SCH (09:20)
[2017-08-13] MEDS: LEVOTHYROXINE 100 MCG/5 ML SYR IVP SCH (10:10)
[2017-08-13] MEDS ORDERED: D5W NS W/ 20 KCl/L 1,000 ML IV SCH (11:00)
--- NOTE | 2017-08-13 11:03 | PCMIDPN ---
Assessment/Plan: Assessment: Right-sided retroperitoneal abscess probably from biliary source. Status post abscess drainage and gallbladder removal. Clinically seems to be trending worse over the past two days. Patient has E coli as well as enterococcus faecalis in his culture from the retroperitoneal collection. The drainage bulb is full of bilious fluid today however during surgery the area was purulent and did not have significant biloma. Given the micro findings we will consolidate to imipenem to have coverage of both the enterococcus faecalis as well as the E coli that has a significant amount of beta lactam resistance. Plan: 1. Discontinue vancomycin, ceftriaxone and Flagyl. 2. Start imipenem. Pharmacy to dose given significant body weight issues. 3. Continue Micafungin. 3. Follow up with supportive care and clinical progress. 08/13/17 15:43 08/13/17 15:44 Objective: imipenem # 3 micafungin # 5 Vital Signs Temp Pulse Resp BP Pulse Ox 36.6 C 93 19 109/71 98 08/13/17 07:41 08/13/17 07:41 08/13/17 07:41 08/13/17 07:41 08/13/17 07:41 Laboratory Results 08/13/17 05:45 08/13/17 05:45 08/12/17 08/13/17 08/14/17 05:59 05:59 05:59 Intake Total 3096 2570 Output Total 1160 2295 Balance 1936 275 - Physical Exam General Appearance: WD/WN, cachetic, non-toxic, No alert Respiratory: lungs clear, normal breath sounds, No respiratory distress Cardiac/Chest: regular rate, rhythm, No tachycardia Abdomen: non-tender, soft, other (BRODY drains with bilious discharge) Skin: normal color, warm/dry, No rash ICD10 Worksheet Patient Problems: Problems Problem Status Onset COPD (chronic obstructive pulmonary disease) Acute Dehydration Acute Failure to thrive in adult Acute
[2017-08-13] MEDS ORDERED: D10W 1,000 ML IV PRN (11:43)
--- NOTE | 2017-08-13 13:00 | HOSPPROG ---
Hospitalist Progress Note Assessment/Plan: DIAGNOSES: # acute encephalopathy progressing to point of stupor today * multifactorial but infection, severity of illness, nutritionl, meds may all be factor; has been getting occasional doses of narcotic last several days, no other sedating medicines * TSH is quite elevated and hypo thyroidism may be part of the picture (not clear that he was taking his dose at home nor that this is an appropriate dose for him at 50 mcg) * Does have low platelets in could consider the possibility of intracranial bleed those had no headache no focal changes PLANS FOR FURTHER ASSESSMENT: * Will gets a head CT today to make sure he has not had bleed with his low platelets * Check liver panel to make sure liver function remains good * Continue on IV higher dose Synthroid and follow for any improvement related to that * Cultures of his TTube output make sure no organisms missed with his antibiotics * Will begin TPN tonight as he was unable to tolerate NG tube placement # retroperitoneal abscess, likely due to perforated duodenal ulcer, status post washout drainage during still in place * Overall improving postop from a surgical standpoint, though quite a large amount of murky fluid draining from his T-tube drain * he will need repeat abdominal imaging at some point # duodenal ulcer * Continue Proton pump inhibitor # severe thrombocytopenia uncertain etiology/normocytic anemia present at admission, uncertain etiology * Lower again at 20,000 today, with no current bleeding or other reason for transfusion at present * Heparin antibodies negative * Awaiting blood tests ordered by Dr. Flores to assess for possibility of some type of marrow disorder; consider that antibiotics could be potentially causing # acute pulmonary emboli * Small volume without hemodynamic compromise or respiratory compromise at present * Currently not treated in part due to his severe thrombocytopenia # severe protein calorie malnutrition, weight loss and marked cachexia; ? Relation to his encephalopathy * appetite and intake remained very poor; he was unable to tolerate NG tube yesterday so our plan is to start TPN tonight * Vitamin B12 levels were actually high, vitamin-D levels pending; albumin remains extremely low * multivits ordered * ? If there is underlying illness not yet identified, possibly malignancy or otherwise contributing to this # hypothyroidism, currently markedly undertreated, suspect he was not taking or absorbing the medicine at home and that was not absorbing it will here * Started on higher dose of IV Synthroid 08/12 and will follow clinical progress closely, recheck TSH after several days to look for any effect # failure to thrive at home, deconditioning and generalized weakness # rib fractures without obvious history of injury, suspect osteoporosis is present * At some point in near future with primary care physician should address management of this # hyponatremia due to poor intake, resolved # elevation of cardiac troponins to 0.8 with apical hypokinesis, CAD suspected * Further assessment delayed due to his other acute illnesses and thrombocytopenia * Plan further risk stratification once he is stable enough Seen by me today on hospitalist rounds as well as multidisciplinary ICU rounds Reviewed in detail with Dr. Powell SUBJECTIVE: Remains very weak, poor appetite Hard to assess symptoms today due to severe lethargy and difficulty communicating OBJECTIVE Vitals reviewed: All stable overall, still with some mild tachypnea intermittently Toll Operator, my review: Sinus Exam: Quite stuporous today more so than yesterday, mumbling, very weak skin warm dry color ok resps remain mildly labored in bed on oxygen lungs few bibasilar crackles sound like atelectasis heart regular abd soft nondistended nontender, bowel sounds present, incision looks good limbs warm, no edema iv site ok Laboratory data: Platelets lower can at 20,000 today, remains fairly anemic though stable; white count better but still elevated at 12,000 thousand Potassium low at 3.1 today renal function remains good Vitamin-D levels, LETHA, and other marrow tests pending Objective: Vital Signs Temp Pulse Resp BP Pulse Ox 36.4 C 95 20 117/67 91 L 08/13/17 12:00 08/13/17 12:00 08/13/17 12:00 08/13/17 12:00 08/13/17 12:00 08/12/17 08/13/17 08/14/17 06:59 06:59 06:59 Intake Total 3096 2570 Output Total 1160 2295 Balance 1936 275 PT 16.7 SEC (12.0-15.0) H 08/05/17 04:55 INR 1.33 (0.83-1.16) H 08/05/17 04:55 ICD10 Worksheet Patient Problems: Problems Problem Status Onset COPD (chronic obstructive pulmonary disease) Acute Dehydration Acute Failure to thrive in adult Acute
[2017-08-13 13:07] LABS: INR 1.58 (0.83-1.16)
[2017-08-13 13:08] LABS: PLATELET COUNT 21 10^3/uL (150-400)
[2017-08-13] MEDS ORDERED: ORAL BALANCE GEL TUBE PO PRN (13:20)
--- NOTE | 2017-08-13 14:09 | PDINTPN ---
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 He underwent ex lap with washout and peritoneal cultures grew E. Coli, enterococcus, and Ana; treated with imipenem and micafungin. His hospital course has been complicated by significant thrombocytopenia and is followed by oncology, likely consumptive and not likely a primary bone marrow process. he also had a small PE and anticoagulation has been held given his thrombocytopenia. * metabolic encephalopathy of unclear etiology- low dose narcotics possibly involved as well as hypothyroid. Agree with head CT, dc narcotics, and started IV synthroid. * Retroperitoneal abscess- improving on antibiotics and followed by ID. Abdomen appears benign, though stilll modest BRODY drainage. Changed to imipenem per ID today * DU on PPI now and stable * COPD on nebs- no change * PE- I agree with holding AC since the PE was small and essentially inconsequential * TCP- etiology remains unclear. Heme following. Will add SPEP today * Severe malnutrition with low albumin on admission. Failed enteral feeding efforts, so agree with TPN 08/13/17 14:05 Subjective: markedly lethargic/ non-communicative today Objective: Vital Signs Temp Pulse Resp BP Pulse Ox 36.4 C 95 20 117/67 91 L 08/13/17 12:00 08/13/17 12:00 08/13/17 12:00 08/13/17 12:00 08/13/17 12:00 Laboratory Results 08/13/17 12:30 08/13/17 12:30 08/12/17 08/13/17 08/14/17 05:59 05:59 05:59 Intake Total 3096 2570 Output Total 1160 2295 800 Balance 1936 275 -800 PT 19.0 SEC (12.0-15.0) H 08/13/17 12:30 INR 1.58 (0.83-1.16) H 08/13/17 12:30 Physical Exam - Physical Exam General Appearance: no apparent distress, obtunded, cachetic EENT: PERRL/EOMI Neck: supple Respiratory: lungs clear, normal breath sounds, No respiratory distress, No accessory muscle use Cardiac/Chest: regular rate, rhythm, No edema Abdomen: non-tender, soft, No distended Skin: normal color, warm/dry, No cyanosis Lymphatic: no adenopathy Extremities: No pedal edema Neuro/Psych: cognition abnormalities ICD10 Worksheet Patient Problems: Problems Problem Status Onset COPD (chronic obstructive pulmonary disease) Acute Dehydration Acute Failure to thrive in adult Acute
[2017-08-13] MEDS ORDERED: K PHOS 10 MMOL in D5W 250 ML IV ONE (16:30)
[2017-08-13] MEDS ORDERED: MAGNESIUM SULF 2 GM/WATER 50 ML IV ONE (16:30)
--- NOTE | 2017-08-13 17:11 | HOSPPROG ---
Hospitalist Progress Note Assessment/Plan: CRITICAL CARE NOTE GREATER THAN 45 MIN OF BEDSIDE CRITICAL CARE THIS AFTERNOON IN ADDITION TO ALL THE TIME SPENT DOCUMENTED IN PREVIOUS NOTE OF THIS DATE I am asked by the nurses to come see the patient emergently for change in respiratory status. He has become increasingly difficult to oxygenate. He is currently breathing high-flow mask oxygen in addition to high-flow nasal cannula oxygen and is remaining hypoxic. He remains again stuporous and lethargic looks very weak and pale. Blood pressure is good, pulses coming up a little bit right now respiratory rate is faster no fevers. He is a bit less responsive than earlier today. I do not hear anything different on his lung exam or his heart exam. He has no murmur. We got a ABG which shows him to be with a mixed picture, metabolic acidosis not completely compensated by hyperventilation with pCO2 33 PH 7.30, but is only at PO2 of 39 on the double oxygen set up. I have ordered a chest x-ray and this is been done statin I reviewed the images and compared it with the previous x-rays from 3 days ago and with the abdominal films done with NG tube placement yesterday. There is probably a slight increase in pleural effusion in left and right cavities but otherwise little change from the previous chest x-rays. There are some ongoing abnormal lung densities at both lung bases. Repeat serum chemistries had been done at mid day today and show persistence of hypophosphatemia hypomagnesemia, some hyperchloremia but otherwise unchanged with stable renal function, persistence of severe nutritional deficiency albumin 1.6. I have asked for the respiratory therapist to place him on BiPAP at this time, we removing him to a room close to the nurse's station, I have asked for Dr. Powell to be called back in as I believe the patient will likely require mechanical ventilation at this time to manage his situation safely and securely through the night. Has now been again in the room with the patient's and he has been intubated by Dr. Powell successfully and is oxygenating much better. In reviewing his scenario with Dr. Powell reviewed his CT chest from August 03 which shows that the abscess process operated on by Dr. Jiang which is been called in chart retroperitoneal abscess did extend up to approximately T10 in the paraspinous area. Will need to get touch with Dr. Jiang and review how completely that area was explored and a evacuated as a do not at this moment have his operative note to review. Continue mechanical ventilatory support at this time and continue further assessments to trying to determine reason for the patient's decline. Dr. Powell is ordered a CT to further assess the lungs and the paraspinous process. Will review that study once completed Objective: Vital Signs Temp Pulse Resp BP Pulse Ox 36.4 C 98 24 H 116/72 98 08/13/17 12:00 08/13/17 16:00 08/13/17 16:00 08/13/17 16:00 08/13/17 16:00 Microbiology 08/13/17 11:20 Gram Stain - Final Abdomen - Aspirate Laboratory Results 08/13/17 12:30 08/13/17 12:30 08/12/17 08/13/17 08/14/17 06:59 06:59 06:59 Intake Total 3096 2570 Output Total 1160 2295 800 Balance 1936 275 -800 PT 19.0 SEC (12.0-15.0) H 08/13/17 12:30 INR 1.58 (0.83-1.16) H 08/13/17 12:30 ICD10 Worksheet Patient Problems: Problems Problem Status Onset COPD (chronic obstructive pulmonary disease) Acute Dehydration Acute Failure to thrive in adult Acute
--- NOTE | 2017-08-13 17:24 | SOAPPROG ---
SOAP Progress Note Assessment/Plan: Assessment: SOMNOLENT AND HYPOXEMIC TODAY/WILL PROBABLY NEED TO BE VENTILATED/UNCLEAR WHAT ACTUALLY CHANGED IN HIS RESPIRATORY STATUS ABDOMEN SOFT, WOUND OKAY, LARGE SEROUS OUTPUT FROM HIS RETROPERITONEAL DRAIN. TOLERATING T-TUBE CLAMPING AFEBRILE/CHEST X-RAY WITH BILATERAL PLEURAL EFFUSIONS BUT NOT SIGNIFICANTLY CHANGED Plan: PROBABLE VENTILATOR INITIATION 08/13/17 17:22 Objective: Vital Signs Temp Pulse Resp BP Pulse Ox 36.4 C 98 24 H 116/72 98 08/13/17 12:00 08/13/17 16:00 08/13/17 16:00 08/13/17 16:00 08/13/17 16:00 Microbiology 08/13/17 11:20 Gram Stain - Final Abdomen - Aspirate Laboratory Results 08/13/17 12:30 08/13/17 12:30 08/12/17 08/13/17 08/14/17 05:59 05:59 05:59 Intake Total 3096 2570 Output Total 1160 2295 1050 Balance 1936 275 -1050 PT 19.0 SEC (12.0-15.0) H 08/13/17 12:30 INR 1.58 (0.83-1.16) H 08/13/17 12:30 ICD10 Worksheet Patient Problems: Problems Problem Status Onset COPD (chronic obstructive pulmonary disease) Acute Dehydration Acute Failure to thrive in adult Acute
--- NOTE | 2017-08-13 17:35 | PDINTPN ---
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 He underwent ex lap with washout and peritoneal cultures grew E. Coli, enterococcus, and Ana; treated with imipenem and micafungin. His hospital course has been complicated by significant thrombocytopenia and is followed by oncology, likely consumptive and not likely a primary bone marrow process. he also had a small PE and anticoagulation has been held given his thrombocytopenia. * metabolic encephalopathy of unclear etiology- low dose narcotics possibly involved as well as hypothyroid. Agree with head CT, dc narcotics, and started IV synthroid. * Retroperitoneal abscess- improving on antibiotics and followed by ID. Abdomen appears benign, though stilll modest BRODY drainage. Changed to imipenem per ID today * DU on PPI now and stable * COPD on nebs- no change * PE- I agree with holding AC since the PE was small and essentially inconsequential * TCP- etiology remains unclear. Heme following. Will add SPEP today * Severe malnutrition with low albumin on admission. Failed enteral feeding efforts, so agree with TPN * * * in addition to above: intubated with 7.5 ETT on first attempt. Head CT pending so will add chest CT. Suspect poor airway protection and clearance of mucous causing problem. * Critical care time 30 minutes prior to intubation, 30 minutes post intubation and separate from procedures 08/13/17 14:05 08/13/17 17:33 Subjective: CTSP emergently for oxygen desaturation and poor mental status. Objective: Vital Signs Temp Pulse Resp BP Pulse Ox 36.4 C 98 24 H 116/72 98 08/13/17 12:00 08/13/17 16:00 08/13/17 16:00 08/13/17 16:00 08/13/17 16:00 Microbiology 08/13/17 11:20 Gram Stain - Final Abdomen - Aspirate Laboratory Results 08/13/17 12:30 08/13/17 12:30 08/12/17 08/13/17 08/14/17 05:59 05:59 05:59 Intake Total 3096 2570 Output Total 1160 2295 1050 Balance 1936 275 -1050 PT 19.0 SEC (12.0-15.0) H 08/13/17 12:30 INR 1.58 (0.83-1.16) H 08/13/17 12:30 Physical Exam - Physical Exam General Appearance: obtunded, cachetic EENT: PERRL/EOMI, EOM palsy (leftward gaze prior to ETT) Neck: supple Respiratory: decreased breath sounds, No respiratory distress, No accessory muscle use, No rales, No rhonchi Cardiac/Chest: regular rate, rhythm, No edema Abdomen: soft, No distended Skin: normal color, warm/dry, No cyanosis Lymphatic: no adenopathy Extremities: No pedal edema Neuro/Psych: cognition abnormalities ICD10 Worksheet Patient Problems: Problems Problem Status Onset COPD (chronic obstructive pulmonary disease) Acute Dehydration Acute Failure to thrive in adult Acute
[2017-08-13] MEDS ORDERED: ETOMIDATE 40 MG/20 ML INJ ONE (17:36)
[2017-08-13] MEDS ORDERED: MIDAZOLAM 2 MG/2 ML VIAL ONE (17:36)
[2017-08-13] MEDS ORDERED: fentanYL/NACL/100 ML BAG IV ONE (18:03)
[2017-08-13] MEDS: PROPOFOL/EMULSION 100 ML IV SCH (18:06)
[2017-08-13] MEDS ORDERED: MIDAZOLAM 2 MG/2 ML VIAL IVP ONE ×2 (18:15)
[2017-08-13] MEDS ORDERED: ETOMIDATE 40 MG/20 ML INJ IV ONE ×2 (18:15)
[2017-08-13] MEDS ORDERED: fentaNYL/NACL 100 ML IV SCH (18:20)
--- NOTE | 2017-08-13 18:51 | SOAPPROG ---
SOAP Progress Note Assessment/Plan: Assessment: 1. Altered mental status-requiring intubation earlier today. Head CT shows findings consistent with occipital CVa. No evidence of hemorrhage. 2. Thrombocytopenia-plts stable at 21K. don't feel strongly about transfusion in absence of bleeding. Likely multifactorial/consumptive. HIT antibodies negative. may be a component of drug induced. Of note..INR is trending up. ? component of developing DIC 3. Retroperitoneal abcess-likely secondary to perforated DU. Plan 1. would hold transfusions unless platelets less than 20K or signs of bleeding. 2. Will check for DIC with PTT, fibrinogen, repeat PT/INR. Subjective: patient intubated Objective: Vital Signs Temp Pulse Resp BP Pulse Ox 36.4 C 98 24 H 116/72 98 08/13/17 12:00 08/13/17 16:00 08/13/17 16:00 08/13/17 16:00 08/13/17 16:00 Microbiology 08/13/17 11:20 Gram Stain - Final Abdomen - Aspirate Laboratory Results 08/13/17 12:30 08/13/17 12:30 08/12/17 08/13/17 08/14/17 05:59 05:59 05:59 Intake Total 3096 2570 917 Output Total 1160 2295 1205 Balance 1936 275 -288 PT 19.0 SEC (12.0-15.0) H 08/13/17 12:30 INR 1.58 (0.83-1.16) H 08/13/17 12:30 Physical Exam - Physical Exam General Appearance: unresponsive (no signs of bleeding.) ICD10 Worksheet Patient Problems: Problems Problem Status Onset COPD (chronic obstructive pulmonary disease) Acute Dehydration Acute Failure to thrive in adult Acute
[2017-08-13] MEDS ORDERED: NS 1,000 ML IV SCH (21:00)
[2017-08-13] MEDS: NICOTINE 21 MG/24 HR PATCH TD SCH (23:08)
[2017-08-13] MEDS: FAMOTIDINE 20 MG/NACL 50 ML IV SCH (23:09)
[2017-08-13] MEDS: CHLORHEXIDINE GLUCONATE 15 ML UDL PO SCH (23:10)
[2017-08-13] MEDS: TPN 1 EA BAG IV SCH (23:12)
[2017-08-14] MEDS: IMIPENEM IV SCH ×4 (00:23→18:01)
[2017-08-14] MEDS: NS IV SCH ×4 (00:23→18:01)
[2017-08-14] MEDS: CILASTATIN SODIUM IV SCH ×4 (00:23→18:01)
[2017-08-14 04:53] LABS: INR 1.62 (0.83-1.16); PROTIME(PATIENT) 19.4 SEC (12.0-15.0)
[2017-08-14 05:36] LABS: PLATELET COUNT 14 10^3/uL (150-400)
--- NOTE | 2017-08-14 06:20 | GPN ---
[f rep st] PROCEDURE NOTE DATE OF PROCEDURE: 08/13/2017 PROCEDURE: Emergent intubation. CONSENT: Consent was waived due to the emergent nature of the procedure. ANESTHESIA: Conscious sedation was achieved using a total of 1 mg of Versed and 20 mg of etomidate. DESCRIPTION OF PROCEDURE: The patient tolerated these well without complications. After using BiPAP to maintain 1 time view of saturation of 100%, I was able to pass a 7.5 endotracheal tube with exce llent visualization on the first look using direct laryngoscopy and a 7.5 endotracheal tube without d ifficulty. There was significant mucous plugging just above the vocal cords which were easily suctio emeka and there were no motion abnormalities noted. After intubation, there was appropriate color brown ge on capnography. There was oxygen saturation easily read at 100% with condensation within the tube . Breath sounds were equal on both lungs and no midepigastric sounds. A chest CT is pending at this time to confirm placement. /[id number]/MODL
[2017-08-14] MEDS ORDERED: MAGNESIUM SULF 1 GM/DEXTROSE 100 ML IV ONE ×2 (08:00→12:15)
[2017-08-14] MEDS: MULTIVITAMINS 1 EACH TAB PO SCH (10:07)
[2017-08-14] MEDS: FAMOTIDINE 20 MG/NACL 50 ML IV SCH (10:10)
[2017-08-14] MEDS: POTASSIUM Cl (KCl) 50 ML IV SCH ×2 (10:10→11:55)
[2017-08-14] MEDS: MICAFUNGIN NA 100 MG in NS 100 ML IV SCH (10:10)
--- NOTE | 2017-08-14 10:47 | SOAPPROG ---
SOAP Progress Note Assessment/Plan: Assessment: 1. occipital CVa-intubated, sedation being lightened. No evidence of hemorrhage on CT. 2. Thrombocytopenia-plts at 14K. No evidence of active bleeding. Likely multifactorial/consumptive. HIT antibodies negative. may be a component of drug induced. 3. Prolonged INR-normal PTT. May be due to low vit K. LFT's normal. Labs don't support DIC 3. Retroperitoneal abcess-secondary to perforated DU. 4. PE-no anticoag given low platelets 5. ? Goals of care-family deciding on comfort measures versus continued aggressive medical support. Plan 1. Reasonable to hold platelet transfusion until direction of care clarified. Discussed with family. Discussed that transfusion now would not 'improve' his situation, more preventative. 2. consider vit K replacement if family decides to continue current level of care. 2. Neuro consult. 08/14/17 10:48 08/14/17 10:49 Subjective: intubated, moving in non purposeful direction Objective: Vital Signs Temp Pulse Resp BP Pulse Ox 36.4 C 96 32 H 101/71 100 08/14/17 04:00 08/14/17 08:00 08/14/17 08:00 08/14/17 08:00 08/14/17 04:00 Microbiology 08/13/17 11:20 Gram Stain - Final Abdomen - Aspirate Laboratory Results 08/14/17 04:15 08/14/17 04:15 08/13/17 08/14/17 08/15/17 05:59 05:59 05:59 Intake Total 2570 2951.0 Output Total 2295 2030 Balance 275 921.0 PT 19.4 SEC (12.0-15.0) H 08/14/17 04:15 INR 1.62 (0.83-1.16) H 08/14/17 04:15 Physical Exam - Physical Exam General Appearance: other (intubated) ICD10 Worksheet Patient Problems: Problems Problem Status Onset COPD (chronic obstructive pulmonary disease) Acute Dehydration Acute Failure to thrive in adult Acute
[2017-08-14] MEDS: PANTOPRAZOLE SODIUM 40 MG VIAL IVP SCH ×2 (11:52→20:33)
[2017-08-14] MEDS: LEVOTHYROXINE 100 MCG/5 ML SYR IVP SCH (12:24)
[2017-08-14] MEDS: CHLORHEXIDINE GLUCONATE 15 ML UDL PO SCH ×2 (12:24→20:33)
--- NOTE | 2017-08-14 12:28 | SOAPPROG ---
SOAP Progress Note Assessment/Plan: Assessment: 71 year old man with perforated duodenal ulcer s/p laparotomy with drainage of retroperitoneal abscess and t tube. Now with stroke Thrombocytopenia Severe malnutrition Respiratory failure Remains critically ill and malnourished. Low platelets at 14 K, most likely consumptive thrombocytopenia. We had a long conversation regarding goals of care, discussing comfort measures versus continued aggressive medical support. From an abdominal perspective, he is improving. However he will still have a long recovery due to his severe malnutrition and thrombocytopenia. Now with the new findings on the head CT, this will make his recovery more complicated. He has expressed to his family that he would only like to live as long as he could independently in his own home. Will await findings from Neurology. S: Stable on vent Exam: Intubated and sedated lying in bed. Family at bedside Neuro: Does not respond to loud voice or touch - on Propofol at 10 mcg Pulmonary: Lungs clear to auscultation bilaterally Cardiac: Regular rate Abdomen: Soft, nondistended. T tube draining bilious fluid. BRODY drain with serosanguinous fluid. Incision is clean, dry and intact. Extremities: Marked edema in upper and lower extremities. Right arm generalized ecchymosis. 08/14/17 12:19 08/14/17 13:14 Objective: Vital Signs Temp Pulse Resp BP Pulse Ox 36.4 C 106 H 29 H 110/74 99 08/14/17 04:00 08/14/17 11:39 08/14/17 11:39 08/14/17 09:00 08/14/17 11:39 Microbiology 08/13/17 11:20 Gram Stain - Final Abdomen - Aspirate Laboratory Results 08/14/17 04:15 08/14/17 04:15 08/13/17 08/14/17 08/15/17 05:59 05:59 05:59 Intake Total 2570 2951.0 Output Total 2295 2030 Balance 275 921.0 PT 19.4 SEC (12.0-15.0) H 08/14/17 04:15 INR 1.62 (0.83-1.16) H 08/14/17 04:15 ICD10 Worksheet Patient Problems: Problems Problem Status Onset COPD (chronic obstructive pulmonary disease) Acute Dehydration Acute Failure to thrive in adult Acute
--- NOTE | 2017-08-14 13:09 | HOSPPROG ---
Hospitalist Progress Note Assessment/Plan: DIAGNOSES: # ACUTE ENCEPHALOPATHY, MULTIFACTORIAL * CVA's identified on CT scan, suspect possibly multiple events based on clinical progress * Hypothyroidism very likely a cause, was undertreated, suspect his dose was too low and that he was not taking it at home * Multiple other issues include infection, critical illness, malnutrition, etc * Question if he could have some other longstanding underlying medical illness on identified as of yet # RETROPERITONEAL ABSCESS, LIKELY DUE TO PERFORATED DUODENAL ULCER, STATUS POST WASHOUT DRAINAGE DURING STILL IN PLACE * Overall improving postop from a surgical standpoint * he will need repeat abdominal imaging at some point # ACUTE RESPIRATORY FAILURE, HYPOXEMIC, ONSET 08/13, INTUBATED ON THAT DATE AND ON MECHANICAL VENTILATOR SINCE * Suspect multifactorial with acute neurologic decline, increased pleural effusions, atelectasis and other factors # DUODENAL ULCER, WHICH WAS PROBABLY THE PROXIMATE CAUSE OF HIS ABSCESS * Continue Proton pump inhibitor # SEVERE THROMBOCYTOPENIA UNCERTAIN ETIOLOGY/NORMOCYTIC ANEMIA PRESENT AT ADMISSION, UNCERTAIN ETIOLOGY * Lower again at 14,000 today, with no current bleeding * Heparin antibodies negative * Awaiting blood tests ordered by Dr. Flores to assess for possibility of some type of marrow disorder; consider that antibiotics could be potentially causative # ACUTE PULMONARY EMBOLI * Small volume without hemodynamic compromise or respiratory compromise at present * Currently not treated in part due to his severe thrombocytopenia # SEVERE PROTEIN CALORIE MALNUTRITION, WEIGHT LOSS AND MARKED CACHEXIA; ? RELATION TO HIS ENCEPHALOPATHY * appetite and intake remained very poor; he was unable to tolerate NG tube yesterday so our plan is to start TPN tonight * Vitamin B12 levels were actually high, vitamin-D levels pending; albumin remains extremely low * multivits ordered * ? If there is underlying illness not yet identified, possibly malignancy or otherwise contributing to this # HYPOTHYROIDISM, currently markedly undertreated, suspect he was not taking or absorbing the medicine at home and that was not absorbing it will here * Started on higher dose of IV Synthroid 08/12 and will follow clinical progress closely, recheck TSH after several days to look for any effect # FAILURE TO THRIVE AT HOME, DECONDITIONING AND GENERALIZED WEAKNESS # rib fractures without obvious history of injury, suspect osteoporosis is present * At some point in near future with primary care physician should address management of this # hyponatremia due to poor intake, resolved # elevation of cardiac troponins to 0.8 with apical hypokinesis, CAD suspected * Further assessment delayed due to his other acute illnesses and thrombocytopenia * Plan further risk stratification once he is stable enough Seen by me today on hospitalist rounds as well as multidisciplinary ICU rounds Reviewed in detail with Dr. 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: Sinus Exam: On ventilator with tube in good position well secured, reasonable lung compliance, on 40% FiO2 skin warm dry color ok resps he is actually over breathing the vent to some degree at this time lungs very diminished breath sounds overall heart regular abd soft nondistended seems nontender, bowel sounds present, incision looks good limbs warm, no edema iv site ok [place] data: [place] [id number] today, remains fairly anemic though stable; white count better but still elevated at 11,000 Potassium low at 3.0 today renal function remains good Vitamin-D levels pending LETHA, and FISH for evaluation of low platelets pending Objective: Vital Signs Temp Pulse Resp BP Pulse Ox 36.4 C 109 H 34 H 107/79 100 08/14/17 04:00 08/14/17 12:00 08/14/17 12:00 08/14/17 12:00 08/14/17 12:00 Microbiology 08/13/17 11:20 Gram Stain - Final Abdomen - Aspirate Laboratory Results 08/14/17 04:15 08/14/17 04:15 08/13/17 08/14/17 08/15/17 06:59 06:59 06:59 Intake Total 2570 2951.0 Output Total 2295 2030 Balance 275 921.0 PT 19.4 SEC (12.0-15.0) H 08/14/17 04:15 INR 1.62 (0.83-1.16) H 08/14/17 04:15 ICD10 Worksheet Patient Problems: Problems Problem Status Onset COPD (chronic obstructive pulmonary disease) Acute Dehydration Acute Failure to thrive in adult Acute
--- NOTE | 2017-08-14 13:47 | PDINTPN ---
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 He underwent ex lap with washout and peritoneal cultures grew E. Coli, enterococcus, and Ana; treated with imipenem and micafungin. His hospital course has been complicated by significant thrombocytopenia and is followed by oncology, likely consumptive and not likely a primary bone marrow process. he also had a small PE and anticoagulation has been held given his thrombocytopenia. * Acute CVA- actual timing unclear with bilateral occipital infarct (vs PRES). Neurology consult pending for prognosis. He was not a candidate for TPA given severe thrombocytopenia and ambiguity surrounding timing. Of note, his gaze was fixed to the left prior to intubation, but not earlier the same morning. For now , minimize sedation and frequent neuro checks. Currently overbreathes vent * Acute respiratory failure with hypoxia- likely related to mucous plug in upper airway and inability to protect airway. No aspiration noted. Now on minimal vent support with spontaneous respirations. Continue vent for now * Retroperitoneal abscess- improving on antibiotics and followed by ID. Abdomen appears benign, though still modest BRODY drainage. Fluid has cleared and wbc coming down. Ana persists in peritoneal fluid. Changed to imipenem per ID 08/13 but remains on micafungin * DU on PPI now and stable * COPD on nebs- no change * PE- I agree with holding AC since the PE was small and essentially inconsequential. Extreme TCP also precludes anticoag * TCP- etiology remains unclear. Heme following and presumed consumptive. Would transfuse for <10 * Severe malnutrition with low albumin on admission. Failed enteral feeding efforts, so agree with TPN * * * Critical care time 45 minutes including bedside evaluation, family meeting, case review with Bud De León, and multidisciplinary rounding team Subjective: Intubated 08/[address] with occiptal infarct Objective: Vital Signs Temp Pulse Resp BP Pulse Ox 36.4 C 109 H 34 H 107/79 100 08/14/17 04:00 08/14/17 12:00 08/14/17 12:00 08/14/17 12:00 08/14/17 12:00 Microbiology 08/13/17 11:20 Gram Stain - Final Abdomen - Aspirate Laboratory Results 08/14/17 04:15 08/14/17 04:15 08/13/17 08/14/17 08/15/17 05:59 05:59 05:59 Intake Total 2570 2951.0 Output Total 2295 2030 Balance 275 921.0 PT 19.4 SEC (12.0-15.0) H 08/14/17 04:15 INR 1.62 (0.83-1.16) H 08/14/17 04:15 Physical Exam - Physical Exam General Appearance: obtunded, cachetic EENT: PERRL/EOMI Neck: supple Respiratory: lungs clear, normal breath sounds, No respiratory distress, No accessory muscle use Cardiac/Chest: regular rate, rhythm, edema Abdomen: soft, No distended Skin: normal color, warm/dry, No cyanosis Lymphatic: no adenopathy Extremities: pedal edema Neuro/Psych: cognition abnormalities ICD10 Worksheet Patient Problems: Problems Problem Status Onset COPD (chronic obstructive pulmonary disease) Acute Dehydration Acute Failure to thrive in adult Acute
--- NOTE | 2017-08-14 14:42 | GCON ---
[f rep st] CONSULTATION NEUROLOGY CONSULT REFERRING PHYSICIAN: Aleksey Powell MD CHIEF COMPLAINT: Encephalopathy. HISTORY OF PRESENT ILLNESS: The patient is a 71-year-old gentleman [place] and is not had regular or routine medical care in his lifetime. He also has a history of alcoholism according to his daughter and has been sober for about 10 years. He has a history of COPD and uses oxygen occasionally. He came into the emergency department on August 03, 2017, with progressive weakness, failure to thrive, loss of appetite, rib pain. He had lost 20 to 30 pounds over the last few months. Ultimately, the patient was found to be critically ill with a perforated duodenal ulcer with a retroperitoneal abscess, which was treated surgically. He has unexplained low platelets, broken ribs as well. In addition, the patient was intubated today for multifactorial respiratory failure. There are also acute pulmonary emboli found, not treated due to his other problems, including severe thrombocytopenia. He is hypothyroid and has malnutrition. He has been encephalopathic for a few days. A head CT was done on yesterday on August 13, which shows bioccipital hypodensity and edema. This is not in a single vascular distribution. He has had normal blood pressure mostly while in the hospital. He does not have renal failure or history of organ transplant. He is not immunocompromised that we know of; however, he does have the multiple other critical illness issues at this time as noted above, including the severe thrombocytopenia. PAST MEDICAL/SURGICAL/ SOCIAL/FAMILY HISTORY/HOME MEDICATIONS/ALLERGIES: please see the history and physical dated August 03, 2017, by Dr. Thomas. PHYSICAL EXAMINATION: VITAL SIGNS: 107/79. Patient is intubated with a respiration rate of 30s, heart rate, tachycardic 104. NEUROLOGIC: The patient had his eyes open and appeared awake when examining him. He did follow commands and squeeze my hands with both the left and right hand. He did wiggle his toes bilaterally as well. There was no obvious asymmetry in motor function. There was no myoclonus or convulsive activity. No signs of subtle seizures either. The patient had intermittent deviation of his eyes to the left and then to the right, and appeared he did have some abnormal vision in that he was not tracking objects normally. IMPRESSION/PLAN: 1. Multifactorial encephalopathy. 2. Critical illness. 3. Abnormal head CT. Overall, the head CT has imaging characteristics more consistent with posterior reversible encephalopathy syndrome (PRES), rather than multifocal posterior circulation infarcts; however, multifocal infarcts is definitely on the differential diagnosis. I had a long discussion with the patient's daughter and primary medical decision maker and her regarding the differential diagnosis of the head CT abnormalities. They understand that stroke is a worse prognosis in general because posterior reversible encephalopathy syndrome does have a large reversible component; however, we also discussed the multiple other medical problems that are concurrent now and that are playing a large role in his overall medical prognosis. His daughter has understood his wishes over many years that he would not like aggressive care to sustain life. I did offer to order an MRI brain without contrast to help differentiate posterior reversible encephalopathy syndrome versus stroke if that would be helpful in her decision-making. At this point, they would like to think about whether to pursue that test or not overnight. They would like to follow up with my colleague, Dr. Guillory who takes over the service tomorrow and let him know if they would like to pursue an MRI or not. We also discussed his code status, which they will address with the primary nurse and the ICU/hospitalist team. I will let my colleague know, Dr. Guillory, about this very pleasant family and patient so we can be available for any other questions tomorrow. No further recommendations now. Please do not hesitate to call if there are any questions or changes in neurologic status with this patient. Seventy total minutes floor time today in reviewing extensive [facility] records since August 03, imaging characteristics, direct counseling with the patient's family and coordination of care. /[id number]/MODL MTDD
--- NOTE | 2017-08-14 16:22 | PCMIDPN ---
Assessment/Plan: Assessment: Right-sided retroperitoneal abscess secondary to a perforated duodenal ulcer. Status post abscess drainage and gallbladder removal. Clinically seems to be trending worse over the past few days. Currently he is intubated and nonresponsive. Neurology is consulted and favors a reversible encephalopathy syndrome as opposed to a multi embolic strokes diagnosis. Patient has E coli as well as enterococcus faecalis in his culture from the retroperitoneal collection. The drainage bulb is full of bilious fluid today however during surgery the area was purulent and did not have significant biloma. Given the micro findings we will consolidate to imipenem to have coverage of both the enterococcus faecalis as well as the E coli that has a significant amount of beta lactam resistance. Micafungin to cover the Ana. Plan: 1. Continue imipenem. Pharmacy to dose given significant body weight issues. 2. Continue Micafungin. 3. Follow up with supportive care and clinical progress. Subjective: Patient is intubated without significant sedation but is not very responsive. Daughter is present in the room. No fevers noted. Objective: Imipenem # 4 Micafungin # 6 Vital Signs Temp Pulse Resp BP Pulse Ox 36.3 C 13 L 13 105/72 100 08/14/17 16:00 08/14/17 16:00 08/14/17 16:00 08/14/17 16:00 08/14/17 16:00 Microbiology 08/13/17 11:20 Gram Stain - Final Abdomen - Aspirate Laboratory Results 08/14/17 04:15 08/14/17 04:15 08/13/17 08/14/17 08/15/17 05:59 05:59 05:59 Intake Total 2570 2951.0 Output Total 2295 2030 Balance 275 921.0 - Physical Exam General Appearance: no apparent distress, cachetic, other (Intubated ) Respiratory: lungs clear, normal breath sounds, No respiratory distress Cardiac/Chest: regular rate, rhythm, No tachycardia Abdomen: soft Skin: normal color, warm/dry, No rash ICD10 Worksheet Patient Problems: Problems Problem Status Onset COPD (chronic obstructive pulmonary disease) Acute Dehydration Acute Failure to thrive in adult Acute
[2017-08-14] MEDS: PROPOFOL/EMULSION 100 ML IV SCH (18:01)
[2017-08-14] MEDS: NICOTINE 21 MG/24 HR PATCH TD SCH (20:30)
[2017-08-14] MEDS: TPN 1 EA BAG IV SCH (20:45)
[2017-08-15] MEDS: CILASTATIN SODIUM IV SCH ×3 (00:22→11:20)
[2017-08-15] MEDS: NS IV SCH ×3 (00:22→11:20)
[2017-08-15] MEDS: IMIPENEM IV SCH ×3 (00:22→11:20)
[2017-08-15 05:44] LABS: INR 1.44 (0.83-1.16); PROTIME(PATIENT) 17.7 SEC (12.0-15.0)
[2017-08-15 05:49] LABS: PLATELET COUNT 13 10^3/uL (150-400)
[2017-08-15] MEDS ORDERED: PETROLAT,WHT/MIN OIL/SOD CHL 3.5 GM OPHT.OINT EACHEYE PRN (06:35)
[2017-08-15] MEDS ORDERED: ALBUMIN 5% 500 ML BOTTLE IV ONE (09:05)
[2017-08-15] MEDS: MULTIVITAMINS 1 EACH TAB PO SCH (09:18)
[2017-08-15] MEDS: MICAFUNGIN NA 100 MG in NS 100 ML IV SCH (09:33)
[2017-08-15] MEDS: PANTOPRAZOLE SODIUM 40 MG VIAL IVP SCH (09:33)
--- NOTE | 2017-08-15 10:16 | PCMIDPN ---
Assessment/Plan: Assessment/Plan: * Right sided retroperitoneal abscess due to perforated duodenal ulcer: Cultures with growth of E. coli, E. faecalis and C. albicans. Repeat cultures from drain showing E. faecalis and C. albicans. Continue Imipenem (activity against the E coli and Enterococcus faecalis) plus micafungin (activity against Ana). Keep in mind that imipenem can have SUPERVISING BROKER side effects although not typically associated with PRES. Overall prognosis extremely guarded based on multitude of medical issues including SUPERVISING BROKER issues with considerations of posterior reversible leukoencephalopathy verses multifocal infarct. Family trying to determine further course of care and likely to pursue MRI to see if infarction contributor. 08/15/17 10:11 Subjective: Family notes patient is not responsive this a.m.. Yesterday they report he was nodding head. Objective: Vital Signs Temp Pulse Resp BP Pulse Ox 37.0 C 102 H 27 H 85/54 L 100 08/15/17 06:00 08/15/17 08:10 08/15/17 08:10 08/15/17 06:00 08/15/17 08:10 Microbiology 08/13/17 11:20 Gram Stain - Final Abdomen - Aspirate Laboratory Results 08/15/17 05:18 08/15/17 05:18 08/14/17 08/15/17 08/16/17 05:59 05:59 05:59 Intake Total 2951.0 1949.7 Output Total 2029 2335 Balance 921.0 -385.3 - Physical Exam General Appearance: non-toxic, other (Intubated, unresponsive) EENT: ET Tube, No scleral icterus Respiratory: No respiratory distress Cardiac/Chest: tachycardia Abdomen: non-tender, other (BRODY drain with thin yellow output; midline incision intact without erythema or drainage), No distended Skin: No rash - Line/s RUE PICC Lines: No drainage, No erythema LUE PICC Lines: No drainage, No erythema ICD10 Worksheet Patient Problems: Problems Problem Status Onset COPD (chronic obstructive pulmonary disease) Acute Dehydration Acute Failure to thrive in adult Acute
[2017-08-15] MEDS ORDERED: ALBUMIN 25% 100 ML IV ONE (10:23)
[2017-08-15] MEDS ORDERED: ALBUMIN 5% 500 ML IV ONE ×2 (10:30→11:00)
--- NOTE | 2017-08-15 10:40 | NEUROPROG ---
Assessment: Today I had a 25 min total unit time and visit with the family of the patient seen by Dr. Cody yesterday for an update on his condition and to assist with planning moving forward. It is very clear that his daughter wants to respect his wishes for no artificial support that would lead to chronic dependency under any circumstance, but she would like to have MRI to help establish prognosis and be sure there are not features that would suggest a good prognosis. Of course, he is very sick medically which is contributing as well and even if the brain does not show severe damage, his prognosis is still guarded at this stage for a meaningful recovery. As I told her, we can only continue supportive care and see how he does and help with his much data and information as we can and she works through the challenge of decision making for his ongoing care. Therefore, we can follow up once results of MRI are available to better inform the family of realistic expectations if possible. Objective: Vital Signs Temp Pulse Resp BP Pulse Ox 37.0 C 102 H 27 H 85/54 L 100 08/15/17 06:00 08/15/17 08:10 08/15/17 08:10 08/15/17 06:00 08/15/17 08:10 Microbiology 08/13/17 11:20 Gram Stain - Final Abdomen - Aspirate Laboratory Results 08/15/17 05:18 08/15/17 05:18 08/14/17 08/15/17 08/16/17 05:59 05:59 05:59 Intake Total 2951.0 1949.7 Output Total 2030 2335 Balance 921.0 -385.3 PT 17.7 SEC (12.0-15.0) H 08/15/17 05:18 INR 1.44 (0.83-1.16) H 08/15/17 05:18 Allergies/Adverse Reactions: No Known Allergies Allergy (Unverified 08/03/17 11:42)
[2017-08-15] MEDS: CHLORHEXIDINE GLUCONATE 15 ML UDL PO SCH ×2 (10:54→19:42)
[2017-08-15] MEDS: LEVOTHYROXINE 100 MCG/5 ML SYR IVP SCH (11:17)
[2017-08-15] MEDS ORDERED: ACETAMINOPHEN 650 MG/20.3 ML UDCUP TUBE PRN (11:33)
--- NOTE | 2017-08-15 12:57 | PDINTPN ---
Grocery Shopper Progress Note Assessment/Plan: Assessment/plan: 71 M admitted with retroperitoneal abscess, likely related to perforated DU seen on endoscopy. He underwent ex lap with washout and peritoneal cultures grew E. Coli, enterococcus, and Ana; treated with imipenem and micafungin. His hospital course has been complicated by significant thrombocytopenia and is followed by oncology, likely consumptive and not likely a primary bone marrow process. he also had a small PE and anticoagulation has been held given his thrombocytopenia. * Acute CVA- actual timing unclear with bilateral occipital infarct (vs PRES). He was not a candidate for TPA given severe thrombocytopenia and ambiguity surrounding timing. Of note, his gaze was fixed to the left prior to intubation , but not earlier the same morning. For now, minimize sedation and frequent neuro checks. Currently overbreathes vent. Fentanyl dc'd. use propofol if needed for sedation only. MRI pending * Acute respiratory failure with hypoxia- likely related to mucous plug in upper airway and inability to protect airway. No aspiration noted. Now on minimal vent support with spontaneous respirations. Continue vent for now * Hypotension- mild decrease today likely from medications. Responded well to albumin * Retroperitoneal abscess- improving on antibiotics and followed by ID. Abdomen appears benign, though still modest BRODY drainage. Fluid has cleared and wbc coming down. Ana persists in peritoneal fluid. Changed to imipenem per ID 08/13 but remains on micafungin * DU on PPI now and stable * COPD on nebs- no change * PE- I agree with holding AC since the PE was small and essentially inconsequential. Extreme TCP also precludes anticoag * TCP- etiology remains unclear. Heme following and presumed consumptive. Would transfuse for <10 * Severe malnutrition with low albumin on admission. Failed enteral feeding efforts, so agree with TPN. * * * Critical care time 45 minutes including bedside evaluation, family meeting, case review 08/15/17 12:55 Subjective: no events, though started fentanyl drip and more unresponsive today Objective: Vital Signs Temp Pulse Resp BP Pulse Ox 37.0 C 78 23 H 105/62 100 08/15/17 06:00 08/15/17 12:00 08/15/17 12:00 08/15/17 12:00 08/15/17 12:00 Microbiology 08/13/17 11:20 Gram Stain - Final Abdomen - Aspirate Laboratory Results 08/15/17 05:18 08/15/17 05:18 08/14/17 08/15/17 08/16/17 05:59 05:59 05:59 Intake Total 2951.0 1949.7 1000 Output Total 2030 2335 350 Balance 921.0 -385.3 650 PT 17.7 SEC (12.0-15.0) H 08/15/17 05:18 INR 1.44 (0.83-1.16) H 08/15/17 05:18 Physical Exam - Physical Exam General Appearance: obtunded EENT: ET tube, other (fixed upward gaze with normal appearing pupils) Neck: supple Respiratory: lungs clear, normal breath sounds, No respiratory distress, No accessory muscle use Cardiac/Chest: regular rate, rhythm, No edema Abdomen: non-tender, soft, No distended Skin: normal color, warm/dry, No cyanosis Lymphatic: no adenopathy Extremities: No pedal edema Neuro/Psych: cognition abnormalities ICD10 Worksheet Patient Problems: Problems Problem Status Onset COPD (chronic obstructive pulmonary disease) Acute Dehydration Acute Failure to thrive in adult Acute
--- NOTE | 2017-08-15 13:57 | SOAPPROG ---
SOAP Progress Note Assessment/Plan: E&M thrombocytopenia * Thrombocytopenia: No evidence of active bleeding. Likely multifactorial/ consumptive. HIT antibodies negative. Transfusions on hold with recent stroke and no reports of bleeding. * Occipital CVA: intubated, sedation being lightened. No evidence of hemorrhage on CT. * Prolonged INR with normal PTT: May be due to low vit K. LFT's normal. * Retroperitoneal abscess due to perforated DU. * PE: no anticoag given low platelets; if family elects aggressive care, may need temp IVC filter. * Goals of care: family deciding on comfort measures versus continued aggressive medical support. MRI today Subjective: Intubated; seems little agitated. Objective: Vital Signs Temp Pulse Resp BP Pulse Ox 37.0 C 73 17 91/51 L 100 08/15/17 06:00 08/15/17 13:10 08/15/17 13:10 08/15/17 13:10 08/15/17 13:10 Microbiology 08/13/17 11:20 Gram Stain - Final Abdomen - Aspirate Laboratory Results 08/15/17 05:18 08/15/17 05:18 08/14/17 08/15/17 08/16/17 05:59 05:59 05:59 Intake Total 2951.0 1949.7 1000 Output Total 2030 2335 350 Balance 921.0 -385.3 650 PT 17.7 SEC (12.0-15.0) H 08/15/17 05:18 INR 1.44 (0.83-1.16) H 08/15/17 05:18 Laboratory Tests 08/13/17 08/14/17 08/15/17 12:30 04:15 05:18 WBC 11.15 H 8.42 Hgb 8.7 L 8.1 L 7.8 L Plt Count 21 L* 14 L* 13 L* Physical Exam - Physical Exam General Appearance: no apparent distress Neuro/Psych: other (cannot asses) ICD10 Worksheet Patient Problems: Problems Problem Status Onset COPD (chronic obstructive pulmonary disease) Acute Dehydration Acute Failure to thrive in adult Acute
[2017-08-15] MEDS ORDERED: GADOBUTROL 10 ML VIAL IVP ONE (14:27)
--- NOTE | 2017-08-15 15:34 | ASMTCMCOM ---
CM Note CM Note Notes: Met with Ines, pt's daughter in "Family Meeting". She was very clear that her father has expressed to her on numerous occasions that he was not afraid of dying and if he could not live with all his faculties[place] would not want to live. Ines is waiting for results of an MRI. If MRI not hopeful for recovery, then she plans to sit down w/Dr Powell an talk about Comfort measures. Date Signed: 08/15/2017 03:33 PM Electronically Signed By:Lu Kent LCSW
--- NOTE | 2017-08-15 18:49 | HOSPPROG ---
Hospitalist Progress Note Assessment/Plan: Assessment: 71 yo male p/w retroperitoneal abscess 2/2 perforated duodenal ulcer c/b acute hypoxic respiratory failure, acute pulmonary embolism, malnutrition, acute encephalopathy, and massive acute CVA Plan: # CVA. Acute, bilateral, d/w Dr. Em and he reports that there are bilateral parietal/occipital/cerebellar infarcts suggestive of posterior circulation defect as well as numerous other areas on MRI -d/w MDPOA (daughter), she believes that patient would not want to live in a severely impaired state of being, and she believes that he would elect for comfort care w/ the details of this diagnosis -awaiting patient's friend's arrival prior to adjusting to comfort care, per MDPOA request -I discussed w/ MDPOA that patient's resp status worsening and that he may prior to that time, and she would like him to receive pain/sedative Rx for resp comfort if he appears uncomfortable, and she has encouraged friend to come visit as soon as possible # Retroperitoneal abscess 2/2 duodenal ulcer. S/p ex lap with I&D of abscess and removal of CBD stone, E coli and Enterococcus on intra-operative - cont Imipenem and micafungin per ID # Duodenal ulcer - BID PPI # Severe protein calorie malnutrition - BMI 14 - pt reports 2/2 neglecting food , possibly due to chronic ulcer, consider malignancy or pulmonary cachexia. - no malignancy on surgical pathology or CT chest/abd/pelvis - dietary moot point now that he is adjusting to comfort measures # Acute PE - holding heparin for plts 13K, potentially 2/2 undiagnosed underlying malignancy and hypercoagulable state - LE u/s neg for DVT # Acute hypoxemic respiratory failure 2/2 combination of mucous plug, chronic CHF, COPD, +poss contribution from PE - cont on vent, extubate for comfort in AM after friend's arrival # Chronic systolic CHF - no actively receiving tx as outpt - ECHO reduced systolic function with elevated BNP and peripheral edema # Type II NSTEMI. 2/2 cardiac strain from above, patient w/ no prior cardiac w/ u but likely has underlying CAD - peak trop 0.8, no cath given goals of care # Acute encephalopathy - evidenced by global brain dysfunction characterized as confusion, lethargy, both of which are acute changes from his baseline, 2/2 toxic effects of infxn, metabolic effects of resp failure # Thrombocytopenia - Acute, >100K --> 13K, possibly 2/2 acute illness. # Hyponatremia - acute, 2/2 poor renal perfusion in setting of above, resolved # hypothyroidism - cont synthroid # Diet - NPO # proph - holding heparin with low platelets, cont SCD's # dispo- critically ill 35 minutes of critical care time spent on this patient, at bedside, w/ family, counseling regarding end-of-life care as outlined above, specifically addressing his severe, terminal CVAs noted on MRI and helping family define their goals for comfort care in AM; patient remains critically ill w/ high risk of mortality o/n. Subjective: patient intubated, sedated Objective: Vital Signs Temp Pulse Resp BP Pulse Ox 37.0 C 72 17 91/51 L 100 08/15/17 06:00 08/15/17 17:40 08/15/17 13:10 08/15/17 13:10 08/15/17 17:40 Microbiology 08/13/17 11:20 Gram Stain - Final Abdomen - Aspirate Laboratory Results 08/15/17 05:18 08/15/17 05:18 08/14/17 08/15/17 08/16/17 05:59 05:59 05:59 Intake Total 2951.0 1949.7 2007.6 Output Total 2030 2335 1650 Balance 921.0 -385.3 357.6 PT 17.7 SEC (12.0-15.0) H 08/15/17 05:18 INR 1.44 (0.83-1.16) H 08/15/17 05:18 - Physical Exam Constitutional: no apparent distress, not in pain, chronically ill appearing, No uncomfortable Neurologic: other (AAOx0) Psychiatric: not anxious, encephalopathic, other (sedated on vent), No agitated ICD10 Worksheet Patient Problems: Problems Problem Status Onset COPD (chronic obstructive pulmonary disease) Acute Dehydration Acute Failure to thrive in adult Acute
--- NOTE | 2017-08-15 22:38 | SOAPPROG ---
SOAP Progress Note Assessment/Plan: Assessment: SOMNOLENT AND HYPOXEMIC TODAY/WILL PROBABLY NEED TO BE VENTILATED/UNCLEAR WHAT ACTUALLY CHANGED IN HIS RESPIRATORY STATUS ABDOMEN SOFT, WOUND OKAY, LARGE SEROUS OUTPUT FROM HIS RETROPERITONEAL DRAIN. TOLERATING T-TUBE CLAMPING AFEBRILE/CHEST X-RAY WITH BILATERAL PLEURAL EFFUSIONS BUT NOT SIGNIFICANTLY CHANGED Plan: PROBABLE VENTILATOR INITIATION 08/13/17 17:22 08/15/17 22:36 SITUATION NOT MUCH CHANGED/STILL ON VENTILATOR/MINIMAL RESPONSIVENESS/CHEST LEFT PLEURAL EFFUSION ABDOMEN SOFT NOT APPRECIABLY TENDER, WOUND HEALING WELL/MOSTLY SEROUS DRAINAGE FROM HIS BRODY WILL NEED MRI TO RESOLVE THE QUESTION OF A CVA/FAMILY CONSIDERING PALLIATIVE CARE WITH SIGNIFICANT CVA IS PRESENT Objective: Vital Signs Temp Pulse Resp BP Pulse Ox 37.0 C 74 18 105/59 L 95 08/15/17 06:00 08/15/17 20:00 08/15/17 20:00 08/15/17 19:52 08/15/17 20:00 Microbiology 08/13/17 11:20 Gram Stain - Final Abdomen - Aspirate Laboratory Results 08/15/17 05:18 08/15/17 05:18 08/14/17 08/15/17 08/16/17 05:59 05:59 05:59 Intake Total 2951.0 1949.7 2007.6 Output Total 20295 1650 Balance 921.0 -385.3 357.6 PT 17.7 SEC (12.0-15.0) H 08/15/17 05:18 INR 1.44 (0.83-1.16) H 08/15/17 05:18 ICD10 Worksheet Patient Problems: Problems Problem Status Onset COPD (chronic obstructive pulmonary disease) Acute Dehydration Acute Failure to thrive in adult Acute
[2017-08-15] MEDS: NICOTINE 21 MG/24 HR PATCH TD SCH (22:42)
[2017-08-16 00:19] VITALS: BP 84/54
[2017-08-16] MEDS ORDERED: FLUCONAZOLE/NaCl 200 ML IV SCH (09:00)
[2017-08-16] MEDS ORDERED: LORazepam 2 MG/ML INJ ONE ×3 (12:02→20:30)
[2017-08-17] MEDS: CHLORHEXIDINE GLUCONATE 15 ML UDL PO SCH ×2 (05:01→08:45)
[2017-08-17] MEDS: LEVOTHYROXINE 100 MCG/5 ML SYR IVP SCH ×2 (05:02→10:42)
[2017-08-17] MEDS: NICOTINE 21 MG/24 HR PATCH TD SCH (05:02)
[2017-08-17] MEDS: LORazepam 2 MG/ML INJ IVP PRN ×7 (08:13→17:59)
--- NOTE | 2017-08-17 08:48 | PDINTPN ---
Preschool Special Education Teacher Progress Note Assessment/Plan: Assessment/plan: 71 M admitted with retroperitoneal abscess, likely related to perforated DU seen on endoscopy. He underwent ex lap with washout and peritoneal cultures grew E. Coli, enterococcus, and Ana; treated with imipenem and micafungin. His hospital course has been complicated by significant thrombocytopenia and is followed by oncology, likely consumptive and not likely a primary bone marrow process. he also had a small PE and anticoagulation has been held given his thrombocytopenia. * Acute CVA- * Acute respiratory failure with hypoxia- * Hypotension- * Retroperitoneal abscess- * DU on PPI now and stable * COPD on nebs- no change * PE- * TCP- * Severe malnutrition with low albumin on admission. * * appears comfortable, but dry MM and slow RR. Discussed with family at length and wd support 08/16 (hand written notes). 08/15/17 12:55 08/17/17 08:46 08/17/17 08:47 Subjective: no events. some MSO4 yesterday Objective: Vital Signs Temp Pulse Resp BP Pulse Ox 37.0 C 75 18 84/54 L 97 08/15/17 06:00 08/16/17 00:00 08/16/17 00:00 08/16/17 00:00 08/16/17 00:00 Microbiology 08/13/17 11:20 Gram Stain - Final Abdomen - Aspirate Laboratory Results 08/15/17 05:18 08/15/17 05:18 08/16/17 08/17/17 08/18/17 05:59 05:59 05:59 Intake Total 2007.6 Output Total 2170 Balance -162.4 PT 17.7 SEC (12.0-15.0) H 08/15/17 05:18 INR 1.44 (0.83-1.16) H 08/15/17 05:18 Physical Exam - Physical Exam General Appearance: obtunded, cachetic Neuro/Psych: cognition abnormalities ICD10 Worksheet Patient Problems: Problems Problem Status Onset COPD (chronic obstructive pulmonary disease) Acute Dehydration Acute Failure to thrive in adult Acute
--- NOTE | 2017-08-17 11:45 | SOAPPROG ---
SOAP Progress Note Assessment/Plan: Assessment: 71 y/o M s/p laparotomy with drainage of retroperitoneal abscess, cholecystectomy with grams S/p EGD with findings of duodenal ulcer, likely cause of abscess PE thrombocytopenia S: Sitting up in bed. Pain controlled. On regular diet, dysphagia I. O: Alert, cachectic No increased WOB Abdomen soft, t tube with bilious output, BRODY drain with serous output, less purulent appearing today, incision cdi Skin: pale, no jaundice Plan: Continue t tube and BRODY drains for now. No surgical intervention needed for duodenal ulcer. Continue BID protonix. Continue holding heparin due to thrombocytopenia. Speech therapy to evaluate for advancement of diet today. Pt seen and evaluated with Dr. Mccabe. Appreciate medicine, ID and scuba instructor input. 08/11/17 10:06 08/12/17 09:46 Just getting situated back in chair after tiring PT session. Not very interactive. Tolerating T-tube clamp, will increase duration to 4hours clamped , alternating with 2 hours unclamped. Minimal bilious drainage from T-tube. BRODY drain with 175cc out. Drainage is serous in nature. Incision site cdi. Hypoactive BS. BETTING AGENCY COUNTER CLERK was unable to perform swallow eval yesterday, plans to try again today. Hematology consulted for thrombocytopenia- doubts bone marrow issue given his continual infectious process. Continue holding heparin for known PE. 08/17/17 11:44 Now s/p massive acute CVA. Family has chosen to withdraw care. Pt is now extubated. Appears comfortable. Objective: Vital Signs Temp Pulse Resp BP Pulse Ox 37.0 C 75 18 84/54 L 97 08/15/17 06:00 08/16/17 00:00 08/16/17 00:00 08/16/17 00:00 08/16/17 00:00 Microbiology 08/13/17 11:20 Gram Stain - Final Abdomen - Aspirate Laboratory Results 08/15/17 05:18 08/15/17 05:18 08/16/17 08/17/17 08/18/17 05:59 05:59 05:59 Intake Total 2007.6 Output Total 2170 Balance -162.4 PT 17.7 SEC (12.0-15.0) H 08/15/17 05:18 INR 1.44 (0.83-1.16) H 06/11/18 05:18 ICD10 Worksheet Patient Problems: Problems Problem Status Onset COPD (chronic obstructive pulmonary disease) Acute Dehydration Acute Failure to thrive in adult Acute
--- NOTE | 2017-08-17 20:09 | HOSPPROG ---
Hospitalist Progress Note Assessment/Plan: Assessment: 71 yo male p/w retroperitoneal abscess 2/2 perforated duodenal ulcer c/b acute hypoxic respiratory failure, acute pulmonary embolism, malnutrition, acute encephalopathy, and massive acute CVA Plan: # CVA. Acute, bilateral, terminal, patient is receiving comofrt care and has e/ o agonal breathing, anticipate expiration within 24hrs # Retroperitoneal abscess 2/2 duodenal ulcer. S/p ex lap with I&D of abscess and removal of CBD stone, E coli and Enterococcus on intra-operative -s/p imipenem and marguerite # Duodenal ulcer - s/p BID PPI # Severe protein calorie malnutrition - BMI 14 - pt reports 2/2 neglecting food , possibly due to chronic ulcer, consider malignancy or pulmonary cachexia. - no malignancy on surgical pathology or CT chest/abd/pelvis - reviewed pathology results (benigen) with son-in-law, also no malignancy on send-out labs # Acute PE - holding heparin for plts 13K, potentially 2/2 undiagnosed underlying malignancy and hypercoagulable state - LE u/s neg for DVT # Acute hypoxemic respiratory failure 2/2 combination of mucous plug, chronic CHF, COPD, +poss contribution from PE - increased dosing and frequency of ativan per family request for comfort, cont PRN morphine # Chronic systolic CHF - no actively receiving tx as outpt - ECHO reduced systolic function with elevated BNP and peripheral edema # Type II NSTEMI. 2/2 cardiac strain from above, patient w/ no prior cardiac w/ u but likely has underlying CAD - peak trop 0.8, no cath given goals of care # Acute encephalopathy - evidenced by global brain dysfunction characterized as confusion, lethargy, both of which are acute changes from his baseline, 2/2 toxic effects of infxn, metabolic effects of resp failure # Thrombocytopenia - Acute, >100K --> 13K, possibly 2/2 acute illness. # Hyponatremia - acute, 2/2 poor renal perfusion in setting of above, resolved # hypothyroidism - cont synthroid # Diet - NPO # proph - none # dispo- critically ill HIgh level of medical complexity, high risk of mortality 2/2 issues outlined above, d/w Dr. Lopez patient's likely expriation. Subjective: patient more comfortable o/n w/ use of ativan Objective: Vital Signs Temp Pulse Resp BP Pulse Ox 37.0 C 75 18 84/54 L 97 08/15/17 06:00 08/16/17 00:00 08/16/17 00:00 08/16/17 00:00 08/16/17 00:00 Microbiology 08/13/17 11:20 Gram Stain - Final Abdomen - Aspirate Body Fluid Culture - Final Ana Albicans Enterococcus Faecalis Laboratory Results 08/15/17 05:18 08/15/17 05:18 08/16/17 08/17/17 08/18/17 05:59 05:59 05:59 Intake Total 2007.6 Output Total 2170 440 Balance -162.4 -440 PT 17.7 SEC (12.0-15.0) H 08/15/17 05:18 INR 1.44 (0.83-1.16) H 08/15/17 05:18 - Physical Exam Constitutional: chronically ill appearing, uncomfortable (agonal breathing), unkempt, cachectic Cardiovascular: systolic murmur (at sternum), tachycardia, No irregularly irregular, No diastolic murmur Respiratory: respiratory distress (agonal breathing), rhonchi (on inspiration and expiration), No expiratory wheeze, No bronchial breath sounds Neurologic: other (AAOx0, no response to tactile stimuli, encephalopathic, no verbal response from patient, does not follow commands) ICD10 Worksheet Patient Problems: Problems Problem Status Onset COPD (chronic obstructive pulmonary disease) Acute Dehydration Acute Failure to thrive in adult Acute
--- NOTE | 2017-08-18 20:03 | PDDCSUM ---
Discharge Summary Discharge Summary: Expiration SUMMARY DATE OF ADMISSION: 08/03/2017 DATE OF DISCHARGE: 08/17/2017 Time of : 19:07 Cause of : Acute bilateral cerebrovascular accident DISCHARGE DIAGNOSES: 1. Acute bilateral CVA 2. Retroperitoneal abscess secondary to duodenal ulcer 3. Acute hypoxemic respiratory failure 4. Chronic systolic congestive heart failure 5. Severe protein calorie malnutrition with low BMI 14 6. Type [address]-elevation myocardial infarction 7. Acute encephalopathy 8. Acute severe thrombocytopenia 9. Acute hyponatremia 10. Acute pulmonary emboli suspected present on admission CONSULTATIONS: Pulmonary critical care, general surgery, Neurology PROCEDURES / IMAGING: Ex lap with I&D of abscess and removal of common bile duct stone HOSPITAL COURSE BY PROBLEM: The patient presented with a retroperitoneal abscess and required emergent surgery, with removal of his common bile duct stone, I&D of abscess, and cultures demonstrating E coli and Enterococcus. The cause of his abscess was believed to be secondary to duodenal ulcer and the patient was placed on imipenem and micafungin. The patient demonstrated acute toxic encephalopathy most likely secondary to the FX of infection which resulted in confusion and lethargy, from which the patient did not recover. This was complicated by the development of acute hypoxic respiratory failure secondary to a combination of mucous plugging, chronic CHF, COPD, possible contribution from pulmonary emboli which were most likely present on admission and secondary to his underlying, undiagnosed pro inflammatory condition. He was not placed on systemic anticoagulation secondary to his acute severe thrombocytopenia with a decline in his platelet count down to 13,000. This decline was most likely secondary to acute illness. Although no overt malignancy was identified, it was suspect that the patient most likely was experiencing a malignancy prior to arrival, with resultant severe protein calorie malnutrition and low BMI 14. A combination of all these factors resulted in a type [address]-elevation myocardial infarction with resultant cardiac strain as well as subsequent acute bilateral cerebrovascular accidents which were identified on brain MRI after Neurology consultation. Since the patient's CVA was determined to be non recoverable, the patient's daughter who is his MD SWENSON decided that comfort measures were in line with his pre stated goals of care and the patient was adjusted to comfort measures. The patient peacefully.
== END 2017-08-17 21:18 | disposition expired | DRG 356 ==
LOC: OBSVTOIN 14:20 → F3E 16:07 → F2N 08-08 01:55
PROVIDERS: ADMIT Internal Medicine; ATTEND Internal Medicine
PROC: 0D9W0ZZ Drainage of Peritoneum, Open Approach (ICD-10-PCS; principal; 2017-08-04 16:00)
PROC: 0FT40ZZ Resection of Gallbladder, Open Approach (ICD-10-PCS; principal; 2017-08-04 16:00)
PROC: 0FC90ZZ Extirpation of Matter from Common Bile Duct, Open Approach (ICD-10-PCS; principal; 2017-08-04 16:00)
PROC: BF13YZZ Fluoroscopy of Gallbladder and Bile Ducts using Other Contrast (ICD-10-PCS; principal; 2017-08-04 16:00)
PROC: 0DB78ZX Excision of Stomach, Pylorus, Via Natural or Artificial Opening Endoscopic, Diagnostic (ICD-10-PCS; 2017-08-09)
PROC: 0BH18EZ Insertion of Endotracheal Airway into Trachea, Via Natural or Artificial Opening Endoscopic (ICD-10-PCS; 2017-08-13)
PROC: 5A1945Z Respiratory Ventilation, 24-96 Consecutive Hours (ICD-10-PCS; 2017-08-13)
DX: K68.19 Other retroperitoneal abscess (principal); I26.99 Other pulmonary embolism without acute cor pulmonale; G93.40 Encephalopathy, unspecified; K26.9 Duodenal ulcer, unspecified as acute or chronic, without hemorrhage or perforation; J96.21 Acute and chronic respiratory failure with hypoxia; I63.9 Cerebral infarction, unspecified; I21.4 Non-ST elevation (NSTEMI) myocardial infarction; I50.22 Chronic systolic (congestive) heart failure; J96.01 Acute respiratory failure with hypoxia; Z51.5 Encounter for palliative care; J44.9 Chronic obstructive pulmonary disease, unspecified; S22.41XA Multiple fractures of ribs, right side, initial encounter for closed fracture; E87.1 Hypo-osmolality and hyponatremia; D69.6 Thrombocytopenia, unspecified; E43 Unspecified severe protein-calorie malnutrition; Z68.1 Body mass index [BMI] 19.9 or less, adult; E03.9 Hypothyroidism, unspecified
CPT/HCPCS: 81439-90; 82607-90; 82652-90; 85520-90; 86022-90; 86334-90; 87186-90; 92526-GN; 92610-GN; 92611-GN; 97110-GP; 97116-GP; 97162-GP; 97166-GO; 97530-GO; 97530-GP; 97535-GO; A9585; C1751; C1757; C1769; G8978-GP-CK; G8979-GP-CI; G8987-GO-CK; G8988-GO-CJ; G8996-GN-CI; G8996-GN-CJ; G8997-GN-CI; J0696; J0743; J1100; J1170; J1450; J1644; J1956; J2001; J2060; J2248; J2250; J2270; J2370; J2405; J2543; J2704; J3010; J3370; J3475; J3480; P9041; P9047; Q9961; Q9967